=== PATIENT | male | born 1945 | race Caucasian/White ===

== ENCOUNTER 2019-08-02 18:10 | Inpatient (IN) | payer OTHER, MEDICARE, SELFPAY ==
[2019-08-02] VITALS (9 sets, daily range): BP systolic 93–159; BP diastolic 50–89; PULSE 66–82; RESP 14–20; TEMP 35.8–36; O2SAT 90–96; BMI 19.5
--- NOTE | 2019-08-02 18:43 | XR_ITS ---
WS: [id number] PELVIS AND RIGHT HIP HISTORY: Fall/injury COMPARISON: 06/03/2012 Right hip: Acute slightly comminuted impacted fracture through the femoral neck. Otherwise no signifi cant displacement. Mild narrowing of the RIGHT and LEFT hip joints. Prior vertebroplasty at L5. Mild narrowing of the SI joints. Osteopenia. Moderate vascular calcifications. XR/XR hip RT 2-3V wo/w pel* [id number] IMPRESSION: 1. Acute slightly impacted RIGHT femoral neck fracture. 2. Mild osteopenia and atherosclerosis.
--- NOTE | 2019-08-02 18:56 | ECG_ITS ---
Measurements Intervals [place] Rate: 70 P: 103 IL: 228 QRS: -65 QRSD: 104 T: 70 QT: 426 QTc: 461 ELECTRONIC VENTRICULAR PACEMAKER Demand atrial pacing Compared to ECG 05/16/2017 06:21:17 Atrial-paced complex(es) or rhythm no longer present Left-axis deviation no longer present T-wave abnormality no longer present Possible ischemia no longer present Electronically Signed On 08-04-2019 11:51:45 CDT by Johana Brown M.D. [email or web address]
--- NOTE | 2019-08-02 18:56 | XR_ITS ---
WS: [id number] PORTABLE CHEST HISTORY: hip fracture COMPARISON: 05/15/2017 LEFT subclavian cardiac pacer. Scattered opacifications throughout both lungs are new. Patchy opacifications are most significant on the RIGHT. Moderate elevation of the LEFT hemidiaphragm is stable. No pleural effusion or pneumothor ax. Cardiac size: Normal. Mediastinum/Aorta: Mild atherosclerosis aorta. Prior vertebroplasties at multiple levels in the thoracic and lumbar spines. XR/XR chest 1V portable [id number] IMPRESSION: 1. New opacifications consistent with pneumonia or interstitial edema predomin antly throughout the RIGHT lung. 2. Stable chronic elevation LEFT hemidiaphragm. 3. Emphysema.
--- NOTE | 2019-08-02 18:58 | ED_ITS ---
HPI - Fall General: Chief Complaint: Fall Stated Complaint: fall,right hip pain Time Seen by Provider: 08/02/19 18:50 History of Present Illness: HPI Narrative: Patient is a 74-year-old gentleman who states that he fell at home. He had severe pain in his right hip. He denies any other complaints. He is nauseous on arrival to the ED but says that is from the pain. He denies syncope. He thinks he may have hit his head but denies having any sore spot. He did not lose consciousness. MD complaint: fall Onset (ago): unknown (Just prior to arrival) Fall from: standing Place fall occurred: home Loss of consciousness: None Associated symptoms-after fall: Denies abdominal pain, chest pain, headache(s), lightheadedness, neck pain or short of breath Review of Systems General: Reports: 10 or more systems reviewed and unremarkable except in HPI and below Const: Denies: fever(s), chills, fatigue or malaise Eyes: Denies: change in vision ENMT: Denies: odynophagia Card: Denies: chest pain or lightheadedness Resp: Denies: dyspnea, productive cough or non-productive cough GI: Denies: abdominal pain, nausea or vomiting : Denies: flank pain Musc: Denies: neck pain or back pain Skin/Breast: Denies: rash Neuro: Denies: headache(s) Mohit/Lymph: Denies: easy bruising or easy bleeding PFS ED PFSH: Social History Smoking and tobacco status: former smoker Physical Exam Const: COMMON NORMALS: patient oriented x3, no limitations and alert GENERAL APPEARANCE: cooperative and in distress HENMT: HEAD & SCALP: normal to inspection FACE & SINUS: normal facial exam Eye: GENERAL EYE: appearance normal, both eyes and all related structures Neck/C-Spine: COMMON NORMALS: supple, no meningeal signs and no JVD Chest: COMMONS NORMALS: normal inspection of the chest Resp: COMMON NORMALS: normal respiratory effort, No use of accessory muscles and clear to auscultation bilaterally AUSCULTATION: clear to auscultation bilaterally Cardio: COMMON NORMALS: no JVD, regular rate, regular rhythm and No murmurs present (Cardio) RATE: regular rate RHYTHM: regular rhythm GI: COMMON NORMALS: Normal to inspection, nondistended, normoactive bowel sounds present, Soft to palpation and non-tender INSPECTION: Yes normal to inspection AUSCULTATION: Yes normoactive bowel sounds PALPATION: Yes Soft to palpation Back/Pelvis: COMMON NORMALS: thoracic and lumbar spine normal to inspection Extremity: COMMON NORMALS: normal to inspection RIGHT LOWER EXTREMITY: Yes hip joint (Tender to palpation, unable to move secondary to pain. No obvious deformity.) Neuro: COMMON NORMALS: patient oriented x3, moves all extremities, no focal motor deficits and no sensory deficits noted SENSORIUM/ORIENTATION: Yes alert MENINGEAL SIGNS: Yes no meningeal signs Psych: COMMON NORMALS: mental status grossly normal, cooperative and normal affect Skin: COMMON NORMALS: no rashes or lesions noted and turgor normal GENERAL SKIN EXAM: no rashes or lesions noted and turgor normal Course ED course: Patient medicated several times for pain in his right hip. Labs are significant for hyponatremia at 126. His CO2 is also low at 20. His chest x-ray shows bilateral infiltrates or possibly fibrosis. The patient denies any medical history other than COPD. He is not sure what his medications are. Were trying to get in touch with his to get a medicine list. Dr. Mcdonald is his neighbor and thinks that he has a history of rheumatoid. He will be admitted to the hospitalist as they are covering for Dr. Oliver and Dr. Dumont this weekend. Dr. Allen will plan on surgery when he is medically cleared. Consultations: Consultation #1: Dr. Allen - will see patient and plan for juan lea when he is medically cleared. Time: 20:02 Consultation #2: Dr. Killian will admit Time: 20:22 Vital Signs: Vital signs: Vital Signs Temperature 96.8 F L 08/02/19 18:46 Pulse Rate 70 08/02/19 18:46 Respiratory Rate 18 08/02/19 20:08 Blood Pressure 93/50 08/02/19 18:46 Pulse Oximetry 95 08/02/19 18:46 MDM - Fall Lab Data: Labs: Lab Results 08/02/19 08/02/19 08/02/19 Range/Units 19:05 19:05 19:05 WBC 7.3 (4.0-10.0) 10^3/ uL RBC 3.37 L (4.1-5.3) 10^6/u L Hgb 10.9 L (11.7-16.6) g/dL Hct 32.5 L (42.0-52.0) % MCV 96.4 H (80-94) fL MCH 32.3 (28.0-34.0) pg MCHC 33.5 (30.0-36.0) g/dL RDW 13.4 (12.1-15.1) % Plt Count 247 (130-400) 10^3/c mm MPV 10.8 H (7.4-10.4) fL Neut % (Auto) 61.3 % Lymph % (Auto) 23.5 % [place] % (Auto) 12.0 % Eos % (Auto) 0.7 % Baso % (Auto) 0.7 % Neut # (Auto) 4.5 (1.8-7.7) 10^3/u L Lymph # (Auto) 1.7 (0.8-4.8) 10^3/u L [place] # (Auto) 0.9 (0.2-0.9) 10^3/u L Eos # (Auto) 0.1 (0.0-0.8) 10^3/u L Baso # (Auto) 0.1 (0.0-0.1) 10^3/u L Nucleated RBC % (a uto) 0 % Nucleated RBCs # 0.0 /100WBC PT 13.80 H (10.5-13.3) SECO NDS INR 1.03 (0.8-1.2) Sodium 126 L (136-145) mmol/L Potassium 4.1 (3.5-5.1) mmol/L Chloride 89 L (98-107) mmol/L Carbon Dioxide 20 L (22-29) mmol/L Anion Gap 21.1 H (5-19) BUN 14 (8-23) mg/dL Creatinine 0.8 (0.7-1.2) mg/dL Glucose 82 (65-115) mg/dL Calculated Osmolal ity 257 L (285-295) mOsm/k g Calcium 8.7 (8.5-10.5) mg/dL Total Bilirubin 0.5 (0.15-1.2) mg/dL AST 27 (0-40) U/L ALT 18 (0-41) U/L Alkaline Phosphata se 121 (40-130) IU/L Total Protein 6.5 L (6.6-8.7) g/dL Albumin 3.8 (3.5-5.2) g/dL Globulin 2.7 (1.3-4.6) g/dL EKG Data^: EKG 1: Pacemaker function: normal pacer function Other EKG comments: Ventricular pacemaker rate of 70 Discharge Plan Discharge Patient Disposition: Admitted As Inpatient Clinical Impression: Hyponatremia, Abnormal chest x-ray Closed fracture of right hip Qualifiers: Encounter type: initial encounter Qualified Code(s): S72.001A - Fracture of unspecified part of neck of right femur, initial encounter for closed fracture Condition: Stable Referrals: Jose Manuel Oliver MD [Primary Care Provider] - Coding Level of Care Code ED Dog Handler Or Trainer for Chg Fwd Exam Comprehensive
[2019-08-02] MEDS: morphine 4 mg/mL SDV 1 mL IVP ×2 (19:02→22:37)
[2019-08-02] MEDS: ondansetron 2 mg/ML SDV 2 mL 4 MG IVP (19:02)
[2019-08-02] MEDS: sodium chloride 0.9% 500 ML 999 ML IV (19:03)
[2019-08-02 19:31] LABS: Basophils # 0.1 10^3/uL (0.0-0.1); Basophils % 0.7 %; Eosinophils # 0.1 10^3/uL (0.0-0.8); Eosinophils % 0.7 %; Hematocrit 32.5 % (42.0-52.0); Hemoglobin 10.9 g/dL (11.7-16.6); Lymphocytes # 1.7 10^3/uL (0.8-4.8); Lymphocytes % 23.5 %; Mean Corpuscular HGB Conc 33.5 g/dL (30.0-36.0); Mean Corpuscular Hemoglobin 32.3 pg (28.0-34.0); Mean Corpuscular Volume 96.4 fL (80-94); Mean Platelet Volume 10.8 fL (7.4-10.4); Monocytes # 0.9 10^3/uL (0.2-0.9); Neutrophils # 4.5 10^3/uL (1.8-7.7); Neutrophils % 61.3 %; Nucleated Red Blood Cells % 0 %; Platelet Count 247 10^3/cmm (130-400); Red Blood Count 3.37 10^6/uL (4.1-5.3); Red Cell Distribution Width 13.4 % (12.1-15.1); White Blood Count 7.3 10^3/uL (4.0-10.0)
[2019-08-02 19:42] LABS: INR 1.03 (0.8-1.2)
[2019-08-02 19:46] LABS: Alanine Aminotransferase 18 U/L (0-41); Albumin Level 3.8 g/dL (3.5-5.2); Alkaline Phosphatase 121 IU/L (40-130); Anion Gap 21.1 (5-19); Aspartate Amino Transferase 27 U/L (0-40); Blood Urea Nitrogen 14 mg/dL (8-23); Calcium 8.7 mg/dL (8.5-10.5); Carbon Dioxide 20 mmol/L (22-29); Chloride 89 mmol/L (98-107); Globulin 2.7 g/dL (1.3-4.6); Glucose 82 mg/dL (65-115); Osmolality Calculated 257 mOsm/kg (285-295); Potassium 4.1 mmol/L (3.5-5.1); Sodium 126 mmol/L (136-145); Total Bilirubin 0.5 mg/dL (0.15-1.2); Total Protein 6.5 g/dL (6.6-8.7)
[2019-08-02] MEDS: fentaNYL 50 mcg/mL INJ 2mL IVP ×2 (20:08→21:53)
--- NOTE | 2019-08-02 20:30 | PM.HP ---
Providers/Chief Complaint Primary Care Provider: Jose Manuel Oliver MD Chief Complaint: fall,right hip pain History of Present Illness Clayton Swanson is a 74 year old male who carries diagnosis of lupus, coronary artery disease with stent placement, bradycardia status post pacemaker placement, hypothyroidism, chronic steroid user coming in after having a mechanical fall. Patient is stating that he had a mechanical fall while he was trying to take his chair out of garage and enjoy sunlight today. He is denying any chest pain, shortness of breath, loss of consciousness or seizure-like activities. He is attributing his fall to losing balance because of bad ankles. He does not feel weak from his baseline, he is active for his age, he never experienced any symptoms of weakness, lethargy because of low sodium. He is denying diarrhea, vomiting, dysuria, hypoglycemic events, hypertensive orthostasis. Diagnostics in the ER revealed normal hemodynamics, hyponatremia, hypochloremia, hypo glycemia, fracture of right femur neck, Dr. Allen has been consulted Hospital service was requested to admit the patient because of multiple comorbid conditions Review of Systems Const: Denies: fever(s) or chills Eyes: Denies: change in vision ENMT: Denies: throat pain Card: Denies: chest pain, palpitations, edema or swelling of feet/ankles Resp: Denies: dyspnea GI: Denies: abdominal pain, nausea or vomiting : Denies: flank pain Musc: Reports: joint pain and joint stiffness; Denies: neck pain, extremity swelling or joint redness Skin/Breast: Denies: rash Neuro: Denies: headache(s) Psych: Denies: anxiety Endo: Denies: polyuria Mohit/Lymph: Denies: easy bruising All/Imm: Denies: urticaria Medications/Allergies Home Medications Medication Instructions Recorded Confirmed Last Taken Type furosemide 20 mg tablet 20 mg PO QAM #90 tab 07/05/19 08/02/19 Unknown Rx cholecalciferol (vitamin D3) See Rx Instructions .ROUTE .COMPLEX 08/02/19 08/02/19 Unknown History citalopram [Celexa] See Rx Instructions .ROUTE .COMPLEX 08/02/19 08/02/19 Unknown History clonazepam See Rx Instructions .ROUTE .COMPLEX 08/02/19 08/02/19 Unknown History gabapentin See Rx Instructions .ROUTE .COMPLEX 08/02/19 08/02/19 Unknown History prednisone See Rx Instructions .ROUTE .COMPLEX 08/02/19 08/02/19 Unknown History prednisone See Rx Instructions .ROUTE .COMPLEX 08/02/19 08/02/19 Unknown History Allergies Allergy/AdvReac Type Severity Reaction Status Date / Time No Known Allergies Allergy Unverified 07/05/19 13:26 PFSH Acute PFSH: Medical History Bradycardia COPD (chronic obstructive pulmonary disease) Coronary artery disease Diastolic heart failure Gastric ulcer Exploratory laparotomy after perforation Hypothyroidism Lupus (systemic lupus erythematosus) Rheumatoid arthritis/lupus Orthostasis Polypharmacy Syncope Secondary to polypharmacy in the past Surgical History H/O hernia repair H/O knee surgery History of appendectomy History of cardiac cath No significant stenotic lesions were identified, 05/2017 Previous back surgery S/P coronary artery stent placement 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 Family History Brother Cancer Prostate cancer Father CAD (coronary artery disease) Mother CAD (coronary artery disease) Social History Smoking and tobacco status: former smoker Alcohol intake: current Alcohol type: beer Alcohol use comment: Occasional 2 beers a day Substance/Drug Use: never Household members: family Housing: House Vitals/I&O/Wt Last Vital Signs Temp 96.8 F L 08/02/19 18:46 Pulse 70 08/02/19 18:46 Resp 18 08/02/19 20:08 BP 93/50 08/02/19 18:46 Pulse Ox 95 08/02/19 18:46 08/02/19 08/02/19 08/02/19 06:59 14:59 22:59 Intake Total 500 / 500 Balance 500 / 500 Weight last 48 hrs Weight 63.503 kg Physical Exam Narrative: EXAM NARRATIVE: Head to toe examination Patient is lying comfortably in his bed without any active discomfort EOMI, PERRLA No neurological changes, alert oriented x3, GCS 15, S1, S2, no active signs of heart failure Abdomen soft, nontender, bowel sounds sluggish Lungs are clear to auscultation No skin ischemia gangrene ulcer of lower extremities Hyperemic facial skin with telangiectasia Appropriate mood and affect He has hematoma of toes due to trauma Laceration of right knee 1x2 cm Pertinent negatives No sign ischemia gangrene or ulcer of lower extremity No active pain No neurological signs because of low sodium Data : 08/02/19 19:05 08/02/19 19:05 A&P Assessment and plan (1) Closed fracture of right hip: Status: Acute Qualifiers: Encounter type: initial encounter Qualified Code(s): S72.001A - Fracture of unspecified part of neck of right femur, initial encounter for closed fracture (2) Chronic hyponatremia: Status: Acute (3) Abnormal chest x-ray: Status: Acute (4) Osteoporosis: Status: Acute (5) Current chronic use of systemic steroids: Status: Acute Additional A&P Information Closed right hip fracture Right hip fracture after sustaining a mechanical fall with underlying osteoporosis, chronic steroid use High risk for avascular necrosis Dr. Allen has been consulted N.p.o. Analgesic control with morphine rcri class III risk with 10% risk of 30-day risk of [place] and cardiac arrest, patient has moderate functional status considering his age, his surgery will be considered urgent, no cardiac evaluation needed before surgery, however I would add a stress dose steroids because of his chronic steroid usage to avoid adrenal crisis He would need good wound care after surgery Address DVT prophylaxis after surgery Chronic hyponatremia His baseline sodium seems to be fluctuating between 128 - 134 No neurological signs He has been given 1 L normal saline in the ER I would use very low maintenance rate to avoid rapid correction Chronic steroid dependency Patient has been using prednisone 10 mg for lupus I would use stress dose steroids for at least 48 hours, will give 1 bolus of 100 mg of hydrocortisone No signs of hypoglycemia however blood sugar is 82, I would avoid adding dextrose because of hyponatremia He has acidosis, hyponatremia, hyperglycemia no hemodynamic instability, closely monitor for adrenal crisis perioperatively, Systemic lupus arthritis Abnormal chest x-ray is most likely secondary to rheumatological disorder He is not septic Low risk for COVID DVT prophylaxis: SCD CODE STATUS: Discussed goals of care with the patient and he wants a trial of CPR and intubation but does not want to stay on ventilator for prolonged period of time N.p.o. after midnight Attestations Medical Necessity Statement*: Anticipating stay in the hospital to cross more than 2 midnights currently needs evaluation by surgery for hip fracture high risk for complication because of chronic steroid use Time Spent in Patient Care: 50 Coding Level of Care Code Acute Inorganic Chemistry Professor for Chg Fwd Diagnoses Closed fracture of right hip S72.001A Encounter type: initial encounter Chronic hyponatremia E87.1 Abnormal chest x-ray R93.89 Osteoporosis M81.0 Current chronic use of systemic steroids Z79.52
[2019-08-02] MEDS: sodium chlor 0.45% +KCl 20 mEq 20 MEQ/1,000 ML BAG 125 MEQ IV (20:47)
[2019-08-02] MEDS: hydrocortisone 100 mg/2 mL SDV IVP (22:38)
[2019-08-02 22:43] LABS: Glucose Point of Care 87 mg/dL (70-110)
[2019-08-02 23:17] LABS: Thyroid Stimulating Hormone 1.81 uIU/mL (0.27-4.20); Uric Acid 5.5 mg/dL (3.4-7.0)
[2019-08-03] VITALS (10 sets, daily range): BP systolic 112–136; BP diastolic 58–77; PULSE 64–78; RESP 18–20; TEMP 36.6–36.9; O2SAT 90–96
[2019-08-03 01:26] LABS: Sodium 126 mmol/L (136-145)
[2019-08-03] MEDS: sodium chloride 0.9% 1,000 ML 30 ML IV (02:56)
[2019-08-03] MEDS: morphine 4 mg/mL SDV 1 mL IVP ×2 (03:02→20:32)
[2019-08-03] MEDS: hydrocortisone 100 mg/2 mL SDV 50 MG IVP ×4 (04:15→21:33)
[2019-08-03 05:07] LABS: Glucose Point of Care 109 mg/dL (70-110)
--- NOTE | 2019-08-03 05:17 | PC.NURSE ---
Patient medication list is updated per phone call with his . Complete list of medications is in patients chart. This nurse noticed the patient is currently taking Brilinta which is an antiplatelet. This nurse spoke to patients a few times in the night. is very concerned about her going into surgery as she says he has a very hard time coming out of anesthesia. would like to speak with the doctor prior to surgery.
[2019-08-03 05:30] LABS: Basophils % 0.3 %; Eosinophils % 0.2 %; Hematocrit 33.5 % (42.0-52.0); Hemoglobin 11.1 g/dL (11.7-16.6); Lymphocytes # 0.7 10^3/uL (0.8-4.8); Lymphocytes % 10.9 %; Mean Corpuscular HGB Conc 33.1 g/dL (30.0-36.0); Mean Corpuscular Hemoglobin 32.9 pg (28.0-34.0); Mean Corpuscular Volume 99.4 fL (80-94); Mean Platelet Volume 10.8 fL (7.4-10.4); Monocytes # 0.3 10^3/uL (0.2-0.9); Monocytes % 4.9 %; Neutrophils % 82.4 %; Nucleated Red Blood Cells % 0 %; Platelet Count 215 10^3/cmm (130-400); Red Blood Count 3.37 10^6/uL (4.1-5.3); Red Cell Distribution Width 13.5 % (12.1-15.1); White Blood Count 6.1 10^3/uL (4.0-10.0)
[2019-08-03 05:55] LABS: Anion Gap 20.2 (5-19); Blood Urea Nitrogen 13 mg/dL (8-23); Calcium 8.8 mg/dL (8.5-10.5); Carbon Dioxide 22 mmol/L (22-29); Chloride 92 mmol/L (98-107); Glucose 102 mg/dL (65-115); Osmolality Calculated 264 mOsm/kg (285-295); Potassium 5.2 mmol/L (3.5-5.1); Sodium 129 mmol/L (136-145)
[2019-08-03] MEDS: sennosides-docusate Tablet 1 TAB PO ×2 (08:12→17:21)
--- NOTE | 2019-08-03 08:31 | PM.PN ---
Subjective Subjective: Interval history: The patient is feeling well today overall. He does have significant pain in the right hip with any movement. Otherwise his pain is relatively well controlled without movement. The patient currently denies any chest pains. He has a chronic cough that he attributes to COPD. He gets up phlegm every once a while. He denies any fevers. He says this is relatively stable for him. The patient denies any vomiting, diarrhea, constipation. He did have some nausea with the pain medications. Vitals/I&O/Wt Last Vital Signs Temp 98.4 F 08/03/19 07:50 Pulse 76 08/03/19 07:50 Resp 18 08/03/19 07:50 BP 118/75 08/03/19 07:50 Pulse Ox 90 08/03/19 07:50 08/02/19 08/03/19 08/03/19 22:59 06:59 14:59 Intake Total 500 / 500 Output Total 220 / 220 Balance 500 / 500 -220 / 280 Weight last 48 hrs Weight 140 lb Physical Exam Narrative: EXAM NARRATIVE: General: Alert and oriented x3 Eyes: PERRLA, EOMI Mouth: Mucous membranes moist without lesions. Cardiac: Regular rate and rhythm without murmurs Lungs: Significantly decreased air entry bilaterally. No appreciable wheezes, crackles or rhonchi. Abdomen: Soft, nontender, no hepatosplenomegaly noted Extremities: No edema. Pain noted over the right hip to palpation. Data : 08/03/19 04:29 08/03/19 04:29 A&P Assessment and plan (1) Current chronic use of systemic steroids: Status: Acute (2) Osteoporosis: Status: Acute (3) Chronic hyponatremia: Status: Acute (4) Closed fracture of right hip: Status: Acute Qualifiers: Encounter type: initial encounter Qualified Code(s): S72.001A - Fracture of unspecified part of neck of right femur, initial encounter for closed fracture (5) Abnormal chest x-ray: Status: Acute Additional A&P Information 1. Right femoral neck fracture -the patient has a fracture in the right femoral neck. Dr. Allen has been consulted and will plan to do surgery during this inpatient stay. I appreciate her consultation. I will place an order for Percocet to be used as needed for oral pain relief. Morphine okay as needed for IV pain relief. 2. COPD -the patient has COPD and is relatively stable at this time. Continue with home medications. Respiratory therapy to assess and treat. 3. Possible pneumonia on chest x-ray -the patient has some findings of either interstitial fluid in the right lung versus pneumonia. Since he will be going for surgery, we will go ahead and start Rocephin just in case of pneumonia. The patient has a chronic cough and he does not feel that it is any significantly worse. He has no fevers or white blood cell count to be consistent with pneumonia. At this time I do not feel that if this is infection, that it is significant. I would be okay with him proceeding with surgery. 4. Hyponatremia -the patient sodium levels are 129 this morning. He has a chronic hyponatremia. His citalopram will be held as this could be making it worse. Continue with IV fluids at 30 mL/h. 5. Coronary artery disease -the patient has coronary artery disease and had an angiogram done in 2018 that showed blockages of 50% or less. The patient does not have any active chest pains and his EKG does not show any concerning findings for acute disease. I am in agreement with Dr. Joyce that the patient should not need further cardiology clearance at this time. 6. Hypothyroidism -continue with home levothyroxine. 7. Lupus -the patient is currently off of his medication for lupus as it was causing eye issues. 8. Prophylaxis -the patient is getting hydrocortisone to help decrease risk for adrenal crisis. We will continue this after surgery as well. The patient is typically on Brilinta and this will be held prior to surgery. SCDs for now and plan to start Lovenox once okayed by surgery after surgical intervention. Continue with oral PPI. Attestations Medical Necessity Statement*: The patient will be here for greater than 2 midnights due to treatment of a right hip fracture. Coding Level of Care Code Acute Journeyman Power Plant Operator for Chg Fwd Diagnoses Current chronic use of systemic steroids Z79.52 Osteoporosis M81.0 Chronic hyponatremia E87.1 Closed fracture of right hip S72.001A Encounter type: initial encounter Abnormal chest x-ray R93.89
[2019-08-03] MEDS: CLONazepam 0.5 mg Tablet PO ×2 (08:52→17:21)
[2019-08-03] MEDS: pantoprazole DR 40 mg Tablet PO (08:52)
[2019-08-03 08:53] LABS: Sodium 127 mmol/L (136-145)
[2019-08-03] MEDS: cefTRIAXone 2,000 MG in sodium chloride 0.9% (plus) 50 ML 100 MG IV ×2 (08:53→20:31)
[2019-08-03] MEDS: atorvastatin 40 mg Tablet 20 MG PO (08:54)
[2019-08-03] MEDS: levothyroxine 100 mcg Tablet PO (08:55)
[2019-08-03] MEDS: heparin 5,000 unit/mL INJ 1 mL 5000 UNIT INJECTION ×2 (09:14→17:21)
[2019-08-03] MEDS: sodium chloride 3% 500 ML 30 ML IV (09:16)
[2019-08-03 11:17] LABS: Glucose Point of Care 114 mg/dL (70-110)
--- NOTE | 2019-08-03 11:36 | PC.CHAP ---
Pastoral Care Encounter/Spiritual Assessment Type of Contact [] Declined supervisor solder making visit [] Patient/Family/Request visit [] Outpatient visit [] Follow-up visit [] Physician referral [] Code/Alert [x] Routine visit [] Staff referral [] Actively dying [] Patient sleeping [] Family support [] [] Out of room [] Palliative care [] [x] Receiving care in room [] Pre-surgical visit [] Trauma [] Long length of stay [] ICU visit [] Other: Relational/Emotional Strength [x] Patient feels connected with others/family/visitors/staff [] Distress [] Loneliness/isolation [] Abandonment Spirituality of Patient [] Person of Chika [] Attends Confucianist of their Chika [] Believes in Prayer [] Reads Bible or Spiritism materials [] There are Spiritual issues to be addressed Protohistorian Interventions [] Prayer [] Active listening [] Non-anxious presence [] Spiritual/emotional support [] Crisis/trauma care [] Spiritual counseling [] Bereavement support [] Provided bereavement packet [] Provided Bible/devotional materials [] Provided toy/stuffed animal, coloring book to patient or family member [] Provided Communion [] Anointing/Hines [] Salvation [] Completed spiritual assessment [] Other: no prayer Impact on Illness or Injury [] Angry [] Fearful [] Anxious [] Often cries [] Exhaustion [] Unable to work [] Unable to attend church [] Unable to walk/stand [] Unable to read [] Unable to drive [] Unable to eat/drink [] Unable to sleep [] Unable to be with family [] Patient intubated [] Other: Summary FELL right Hip, hasn't seem docotor, feels good, doesn' know what needs to done Time spent with patient 10 mins
[2019-08-03 16:11] LABS: Anion Gap 18.6 (5-19); Blood Urea Nitrogen 14 mg/dL (8-23); Calcium 8.6 mg/dL (8.5-10.5); Carbon Dioxide 22 mmol/L (22-29); Chloride 93 mmol/L (98-107); Glucose 104 mg/dL (65-115); Osmolality Calculated 265 mOsm/kg (285-295); Potassium 4.6 mmol/L (3.5-5.1); Sodium 129 mmol/L (136-145)
--- NOTE | 2019-08-03 16:54 | PM.CONSULT ---
Providers/Reason For Consult Consulting Physican/Specialty*: Dr. Laura Allen-Orthopedics Reason for Consult*: Right subcapital hip fracture, displaced Requesting Physcian: Dr. Danielle Arzola Attending Physician: Clayton Dumont MD Primary Care Provider: Jose Manuel Oliver MD History of Present Illness History of Present Illness Clayton Swanson is a 74 year old male who fell at his home. The patient states he got out of his truck and he went into the garage to obtain a lawn chair to be able to sit out in the brace. He was pulling the lawn chair and caught his foot and it causing him to fall. He was unable to ambulate and had significant right hip pain. He was brought to the emergency department where the patient was found to have a subcapital right hip fracture. The patient notes that he did not feel any shortness of breath, dizziness, or other reason for his fall other than getting his foot caught in the chair. During his ER evaluation, in addition to the subcapital hip fracture, he was found to be hyponatremic, hypochloremic, hypoglycemic, and was found to have multiple medical abnormalities. He does note that he frequently falls secondary to losing balance because he has weak ankles. Review of Systems Const: Denies: fever(s) or chills Eyes: Denies: change in vision Card: Denies: chest pain or dyspnea on exertion Resp: Denies: dyspnea or productive cough GI: Denies: abdominal pain Musc: Reports: joint pain and joint stiffness Skin/Breast: Denies: erythema or changes in skin color Neuro: Denies: numbness in extremities Psych: Denies: anxiety or depression Mohit/Lymph: Denies: easy bruising or easy bleeding Meds/Allergies Home Medications and Allergies Home Medications Medication Instructions Recorded Confirmed Last Taken Type furosemide 20 mg tablet 20 mg PO QAM #90 tab 07/05/19 08/02/19 Unknown Rx Klor-Con 10 10 meq PO DAILY 08/02/19 08/02/19 Unknown History atorvastatin 10 mg PO DAILY 08/02/19 08/02/19 Unknown History cholecalciferol (vitamin D3) See Rx Instructions .ROUTE .COMPLEX 08/02/19 08/02/19 Unknown History citalopram [Celexa] 40 mg PO DAILY 08/02/19 08/02/19 Unknown History clonazepam [Klonopin] 0.5 mg PO BID 08/02/19 08/02/19 Unknown History fiber 400 mg PO DAILY 08/02/19 08/02/19 Unknown History gabapentin 100 mg PO BID 08/02/19 08/02/19 Unknown History leflunomide 5 mg PO DAILY 08/02/19 08/02/19 Unknown History levothyroxine 100 mcg PO DAILY 08/02/19 08/02/19 Unknown History magnesium oxide 400 mg PO DAILY 08/02/19 08/02/19 Unknown History pantoprazole 40 mg PO DAILY 08/02/19 08/02/19 Unknown History prednisone See Rx Instructions .ROUTE .COMPLEX 08/02/19 08/02/19 Unknown History prednisone See Rx Instructions .ROUTE .COMPLEX 08/02/19 08/02/19 Unknown History ticagrelor [Brilinta] 135 mg PO DAILY 08/02/19 08/02/19 Unknown History tiotropium-olodaterol [Stiolto 1 puff INHALATION BID 08/02/19 08/02/19 Unknown History Respimat] Allergies Allergy/AdvReac Type Severity Reaction Status Date / Time No Known Allergies Allergy Unverified 07/05/19 13:26 Current Medications Current Medications Generic Name Dose Route Start Last Admin Trade Name Freq PRN Reason Stop Dose Admin Atorvastatin Calcium 20 mg 08/03/19 09:00 08/03/19 08:54 Lipitor PO 20 mg DAILY HARRIET Administration Clonazepam 0.5 mg 08/03/19 09:00 08/03/19 08:52 Klonopin PO 0.5 mg BID HARRIET Administration Heparin Sodium (Beef Lung) 5,000 unit 08/03/19 09:15 08/03/19 09:14 Heparin INJECTION 08/04/19 00:00 5,000 unit Q8H HARRIET Administration Hydrocortisone Sodium Succinate 50 mg 08/03/19 04:30 08/03/19 15:18 Solu-Cortef Inj IVP 08/04/19 04:29 50 mg Q6H HARRIET Administration Ceftriaxone Sodium 2,000 mg/ 50 mls @ 100 mls/hr 08/03/19 09:00 08/03/19 09:10 Sodium Chloride IV Not Given Q12H HARRIET Protocol Sodium Chloride 500 mls @ 30 mls/hr 08/03/19 09:15 05/26/20 09:16 Sodium Chloride 3% IV 30 mls/hr .[id number] HARRIET Administration Levothyroxine Sodium 100 mcg 08/03/19 09:00 08/03/19 08:55 Synthroid PO 100 mcg DAILY HARRIET Administration Morphine Sulfate 4 mg 08/02/19 22:30 08/03/19 03:02 Morphine IVP 4 mg Q4H PRN Administration SEVERE PAIN Pantoprazole Sodium 40 mg 08/03/19 09:00 08/03/19 08:52 Protonix PO 40 mg DAILY HARRIET Administration Senna/Docusate Sodium 1 tab 08/03/19 09:00 08/03/19 08:12 Senna-S PO 1 tab BID HARRIET Administration PFSH Acute PFSH: Medical History Bradycardia COPD (chronic obstructive pulmonary disease) Coronary artery disease Diastolic heart failure Gastric ulcer Exploratory laparotomy after perforation Hypothyroidism Lupus (systemic lupus erythematosus) Rheumatoid arthritis/lupus Orthostasis Polypharmacy Syncope Secondary to polypharmacy in the past Surgical History H/O hernia repair H/O knee surgery History of appendectomy History of cardiac cath No significant stenotic lesions were identified, 05/2017 Previous back surgery S/P coronary artery stent placement 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 Family History Brother Cancer Prostate cancer Father CAD (coronary artery disease) Mother CAD (coronary artery disease) Social History Smoking and tobacco status: former smoker Alcohol intake: current Alcohol type: beer Alcohol use comment: Occasional 2 beers a day Substance/Drug Use: never Household members: family Housing: House Vitals/I&O/Wt Last Vital Signs Temp 98.4 F 08/03/19 15:12 Pulse 71 08/03/19 15:12 Resp 18 08/03/19 15:12 BP 129/73 08/03/19 15:12 Pulse Ox 95 08/03/19 15:12 08/03/19 08/03/19 08/03/19 06:59 14:59 22:59 Output Total 220 / 220 800 / 800 500 / 1300 Balance -220 / 280 -800 / -800 -500 / -1300 Weight last 48 hrs Weight 140 lb Physical Exam Const: COMMON NORMALS: no acute distress, average body habitus, patient oriented x3 and alert GENERAL APPEARANCE: cooperative and comfortable ORIENTATION/CONSCIOUSNESS: Yes awake HENMT: COMMON NORMALS: normocephalic and atraumatic HEAD & SCALP: normocephalic and atraumatic Eye: GENERAL EYE: appearance normal, both eyes and all related structures Chest: COMMONS NORMALS: normal inspection of the chest Resp: COMMON NORMALS: normal respiratory effort EFFORT & INSPECTION: Yes able to speak in complete sentences and Yes symmetric chest movement Extremity: RIGHT LOWER EXTREMITY: Yes hip joint (There is no significant ecchymosis or swelling about the hip.) Right hip: Yes inspection (The thigh is soft.), Yes palpation (There is tenderness to palpation.), Yes ROM (Not assessed secondary to fracture.) and Yes neurovascular exam (Intact distal to the fracture.) Neuro: COMMON NORMALS: patient oriented x3 SENSORIUM/ORIENTATION: Yes alert Psych: COMMON NORMALS: mental status grossly normal APPEARANCE: Yes grossly normal ATTITUDE: Yes calm and Yes engaged ATTENTION/CONCENTRATION: Yes attention grossly intact Skin: COMMON NORMALS: no rashes or lesions noted GENERAL SKIN EXAM: no rashes or lesions noted Data Imaging^: Xray Ortho: I personally reviewed and interpreted this imaging study as follows: My impression: Patient has a slightly displaced right subcapital hip fracture. There is inferior translation of the femoral head relative to the femur. This is concerning for an unstable fracture pattern. A&P Assessment and plan (1) Subcapital fracture of right hip: Patient was admitted by the hospitalist service with multiple medical problems. He has been optimized for surgery. His sodium has improved somewhat while here, but he is still low. Recommendation was made that we wait until tomorrow to see if sodium can be better normalized. Also, the patient had some findings on chest x-ray and this was evaluated by Dr. Dumont. With regard to his hip, he will require a bipolar hip arthroplasty. He has been treated with IV antibiotic to address any potential issues secondary to his lungs. I discussed surgical intervention with patient. He is in agreement. Plans were made for his surgery to occur tomorrow morning provided there are no medical issues which arise overnight. Consents have been signed. Status: Acute Consult Attestations Medical Necessity Statement: Patient requires inpatient hospitalization to address his displaced right subcapital hip fracture. Coding Level of Care Code Acute Planting Material Remover for Gina klaus Diagnoses Subcapital fracture of right hip S72.011A
[2019-08-03 17:32] LABS: Glucose Point of Care 109 mg/dL (70-110)
[2019-08-03 20:45] LABS: Glucose Point of Care 169 mg/dL (70-110)
[2019-08-03] MEDS: sodium chloride 3% 500 ML 41.7 ML IV (21:33)
[2019-08-03] MEDS: oxyCODONE-APAP 5-325 mg Tablet 1 TAB PO (21:38)
[2019-08-04] VITALS (14 sets, daily range): BP systolic 95–140; BP diastolic 39–90; PULSE 63–87; RESP 16–22; TEMP 36.3–36.8; O2SAT 95–100
[2019-08-04 04:01] LABS: Glucose Point of Care 130 mg/dL (70-110)
[2019-08-04 05:49] LABS: Basophils % 0.1 %; Hematocrit 29.1 % (42.0-52.0); Hemoglobin 9.7 g/dL (11.7-16.6); Lymphocytes # 0.5 10^3/uL (0.8-4.8); Lymphocytes % 6.4 %; Mean Corpuscular HGB Conc 33.3 g/dL (30.0-36.0); Mean Corpuscular Hemoglobin 33.2 pg (28.0-34.0); Mean Corpuscular Volume 99.7 fL (80-94); Mean Platelet Volume 10.8 fL (7.4-10.4); Monocytes # 0.8 10^3/uL (0.2-0.9); Monocytes % 9.9 %; Neutrophils # 6.9 10^3/uL (1.8-7.7); Neutrophils % 83.1 %; Nucleated Red Blood Cells % 0 %; Platelet Count 184 10^3/cmm (130-400); Red Blood Count 2.92 10^6/uL (4.1-5.3); Red Cell Distribution Width 13.8 % (12.1-15.1); White Blood Count 8.3 10^3/uL (4.0-10.0)
[2019-08-04 06:08] LABS: Alanine Aminotransferase 14 U/L (0-41); Albumin Level 3.2 g/dL (3.5-5.2); Alkaline Phosphatase 93 IU/L (40-130); Anion Gap 15.3 (5-19); Aspartate Amino Transferase 23 U/L (0-40); Blood Urea Nitrogen 16 mg/dL (8-23); Calcium 8.2 mg/dL (8.5-10.5); Carbon Dioxide 20 mmol/L (22-29); Chloride 101 mmol/L (98-107); Globulin 2.4 g/dL (1.3-4.6); Glucose 123 mg/dL (65-115); Magnesium 2.1 mg/dL (1.7-2.3); Osmolality Calculated 272 mOsm/kg (285-295); Phosphorus 2.7 mg/dL (2.5-4.5); Potassium 4.3 mmol/L (3.5-5.1); Sodium 132 mmol/L (136-145); Total Bilirubin 0.3 mg/dL (0.15-1.2); Total Protein 5.6 g/dL (6.6-8.7)
[2019-08-04] MEDS: sodium chloride 0.9% 1,000 ML 30 ML IV ×2 (07:36→16:14)
[2019-08-04] MEDS: vancomycin 1,000 MG in sodium chloride 0.9% 250 ML 250 MG IV ×2 (07:55→19:52)
--- NOTE | 2019-08-04 08:02 | ANES.PREANE2 ---
Pre-Anesthetic Assessment Pre-Anesthetic Assessment: Height/Weight: Height 1.8 m Weight 63.503 kg Temp Pulse Resp BP Pulse Ox 98.0 F 75 18 139/77 97 08/04/19 07:20 08/04/19 07:20 08/04/19 07:20 08/04/19 07:20 08/04/19 07:20 Preop Diagnosis: Right subcapital hip fracture Proposed Procedure: Operation Date: 08/04/19 08:15 Proposed Procedures p Hemiarthroplasty Hip(Right) - Laura Allen MD Last intake: Intake Last Liquid Date 08/03/19 Last Liquid Time 22:00 Last Solid Date 08/01/19 Last Solid Time 20:00 Social: Social History: Tobacco (chews) and No alcohol Exam: Pre-Anes Outpt Exam: alert, oriented x 3, clear to auscultation bilaterally and regular rate & rhythm Airway: Submandibular: WNL Cervical ROM: WNL MP: 2 Dentition: Other (teeth ok) History/ROS: No significant history except as noted Pulmonary: Pulmonary: COPD and BERRY CV/HEM: CV/HEM: Arrythmia (PPM), CAD (stents 2015) and HTN : : None reported Hepatic: Hepatic: None reported GI: GI: GERD (contolled) Metabolic: Metabolic: Hyperlipidemia and Thyroid Musc/skel: Musc/skel: OA/DJD Comments: Lupus Neuropsych: Neuropsych: None reported Anesthetic Plan: ASA status: 3 Anesthesia: Anesthesia Evaluation and General Risk of > 500 ml blood loss (7ml/kg in children): No Meds/Allergies Current Medications: Current Medications Generic Name Dose Route Start Last Admin Trade Name Mel PRN Reason Stop Dose Admin Atorvastatin Calci um 20 mg 08/03/19 09:00 08/03/19 08:54 Lipitor PO 20 mg DAILY HARRIET Administration Clonazepam 0.5 mg 08/03/19 09:00 08/03/19 17:21 Klonopin PO 0.5 mg BID HARRIET Administration Ceftriaxone Sodium 2,000 mg/ 50 mls @ 100 mls/ hr 08/03/19 09:00 08/03/19 21:42 Sodium Chloride IV Infused Q12H HARRIET Infusion Protocol Sodium Chloride 500 mls @ 41.667 mls/hr 08/03/19 21:30 08/04/19 05:30 Sodium Chloride 3% IV 42 mls/hr .Q12H HARRIET Infusion Vancomycin HCl 1,0 00 mg/ 250 mls @ 250 mls /hr 08/04/19 07:05 08/04/19 07:55 Sodium Chloride IV 08/04/19 08:04 250 mls/hr ONCE ONE Administration Protocol Sodium Chloride 1,000 mls @ 30 ml s/hr 08/04/19 07:30 08/04/19 07:36 Sodium Chloride 0.9% IV 30 mls/hr .Q24H HARRIET Administration Levothyroxine Sodi um 100 mcg 08/03/19 09:00 08/03/19 08:55 Synthroid PO 100 mcg DAILY HARRIET Administration Morphine Sulfate 4 mg 08/02/19 22:30 08/03/19 20:32 Morphine IVP 4 mg Q4H PRN Administration SEVERE PAIN Oxycodone/Acetamin ophen 1 tab 08/03/19 08:32 08/03/19 21:38 Percocet 5-325 M g PO 1 tab Q4H PRN Administration MODERATE PAIN Pantoprazole Sodiu m 40 mg 08/03/19 09:00 08/03/19 08:52 Protonix PO 40 mg DAILY HARRIET Administration Senna/Docusate Sod ium 1 tab 08/03/19 09:00 08/03/19 17:21 Senna-S PO 1 tab BID HARRIET Administration PFSH Anesthesia PFSH: Medical History Bradycardia COPD (chronic obstructive pulmonary disease) Coronary artery disease Diastolic heart failure Gastric ulcer Exploratory laparotomy after perforation Hypothyroidism Lupus (systemic lupus erythematosus) Rheumatoid arthritis/lupus Orthostasis Polypharmacy Syncope Secondary to polypharmacy in the past Surgical History H/O hernia repair H/O knee surgery History of appendectomy History of cardiac cath No significant stenotic lesions were identified, 05/2017 Previous back surgery S/P coronary artery stent placement 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 Family History Brother Cancer Prostate cancer Father CAD (coronary artery disease) Mother CAD (coronary artery disease) Social History Smoking and tobacco status: former smoker Alcohol intake: current Alcohol type: beer Alcohol use comment: Occasional 2 beers a day Substance/Drug Use: never Household members: family Housing: House Data Anesthesia CBC & Chem 7: 08/04/19 05:05 08/04/19 05:05 Other Labs: Laboratory Results - last 48 hr 08/02/19 08/02/19 08/02/19 19:05 19:05 19:05 WBC 7.3 RBC 3.37 L Hgb 10.9 L Hct 32.5 L MCV 96.4 H MCH 32.3 MCHC 33.5 RDW 13.4 Plt Count 247 MPV 10.8 H Neut % (Auto) 61.3 Lymph % (Auto) 23.5 Doddridge % (Auto) 12.0 Eos % (Auto) 0.7 Baso % (Auto) 0.7 Neut # (Auto) 4.5 Lymph # (Auto) 1.7 Dod[place]idge # (Auto) 0.9 Eos # (Auto) 0.1 Baso # (Auto) 0.1 Nucleated RBC % (auto) 0 Nucleated RBCs # 0.0 PT 13.80 H INR 1.03 Sodium 126 L Potassium 4.1 Chloride 89 L Carbon Dioxide 20 L Anion Gap 21.1 H BUN 14 Creatinine 0.8 Glucose 82 POC Glucose Calculated Osmolality 257 L Uric Acid Calcium 8.7 Phosphorus Magnesium Total Bilirubin 0.5 AST 27 ALT 18 Alkaline Phosphatase 121 Total Protein 6.5 L Albumin 3.8 Globulin 2.7 TSH Random Cortisol Blood Type Rho(D) Type Antibody Screen 08/02/19 08/02/19 08/02/19 19:05 19:05 22:38 WBC RBC Hgb Hct MCV MCH MCHC RDW Plt Count MPV Neut % (Auto) Lymph % (Auto) Doddridge % (Auto) Eos % (Auto) Baso % (Auto) Neut # (Auto) Lymph # (Auto) Doddridge # (Auto) Eos # (Auto) Baso # (Auto) Nucleated RBC % (auto) Nucleated RBCs # PT INR Sodium Potassium Chloride Carbon Dioxide Anion Gap BUN Creatinine Glucose POC Glucose 87 Calculated Osmolality Uric Acid 5.5 Calcium Phosphorus Magnesium Total Bilirubin AST ALT Alkaline Phosphatase Total Protein Albumin Globulin TSH 1.81 Random Cortisol Blood Type A Positive Rho(D) Type Positive Antibody Screen Negative 08/03/19 08/03/19 08/03/19 00:53 04:29 04:29 WBC 6.1 RBC 3.37 L Hgb 11.1 L Hct 33.5 L MCV 99.4 H MCH 32.9 MCHC 33.1 RDW 13.5 Plt Count 215 MPV 10.8 H Neut % (Auto) 82.4 Lymph % (Auto) 10.9 Doddridge % (Auto) 4.9 Eos % (Auto) 0.2 Baso % (Auto) 0.3 Neut # (Auto) 5.0 Lymph # (Auto) 0.7 L Dod[place]idge # (Auto) 0.3 Eos # (Auto) 0.0 Baso # (Auto) 0.0 Nucleated RBC % (auto) 0 Nucleated RBCs # 0.0 PT INR Sodium 126 L 129 L Potassium 5.2 H Chloride 92 L Carbon Dioxide 22 Anion Gap 20.2 H BUN 13 Creatinine 0.7 Glucose 102 POC Glucose Calculated Osmolality 264 L Uric Acid Calcium 8.8 Phosphorus Magnesium Total Bilirubin AST ALT Alkaline Phosphatase Total Protein Albumin Globulin TSH Random Cortisol Blood Type Rho(D) Type Antibody Screen 08/03/19 08/03/19 08/03/19 05:01 08:32 08:32 WBC RBC Hgb Hct MCV MCH MCHC RDW Plt Count MPV Neut % (Auto) Lymph % (Auto) Dod[place]idge % (Auto) Eos % (Auto) Baso % (Auto) Neut # (Auto) Lymph # (Auto) Dod[place]idge # (Auto) Eos # (Auto) Baso # (Auto) Nucleated RBC % (auto) Nucleated RBCs # PT INR Sodium 127 L Potassium Chloride Carbon Dioxide Anion Gap BUN Creatinine Glucose POC Glucose 109 Calculated Osmolality Uric Acid Calcium Phosphorus Magnesium Total Bilirubin AST ALT Alkaline Phosphatase Total Protein Albumin Globulin TSH Random Cortisol 78.60 H Blood Type Rho(D) Type Antibody Screen 08/03/19 08/03/19 08/03/19 10:32 15:25 17:28 WBC RBC Hgb Hct MCV MCH MCHC RDW Plt Count MPV Neut % (Auto) Lymph % (Auto) Doddridge % (Auto) Eos % (Auto) Baso % (Auto) Neut # (Auto) Lymph # (Auto) Dod[place]idge # (Auto) Eos # (Auto) Baso # (Auto) Nucleated RBC % (auto) Nucleated RBCs # PT INR Sodium 129 L Potassium 4.6 Chloride 93 L Carbon Dioxide 22 Anion Gap 18.6 BUN 14 Creatinine 0.7 Glucose 104 POC Glucose 114 109 Calculated Osmolality 265 L Uric Acid Calcium 8.6 Phosphorus Magnesium Total Bilirubin AST ALT Alkaline Phosphatase Total Protein Albumin Globulin TSH Random Cortisol Blood Type Rho(D) Type Antibody Screen 08/03/19 08/04/19 08/04/19 20:37 03:40 05:05 WBC 8.3 RBC 2.92 L Hgb 9.7 L Hct 29.1 L MCV 99.7 H MCH 33.2 MCHC 33.3 RDW 13.8 Plt Count 184 MPV 10.8 H Neut % (Auto) 83.1 Lymph % (Auto) 6.4 Doddridge % (Auto) 9.9 Eos % (Auto) 0.0 Baso % (Auto) 0.1 Neut # (Auto) 6.9 Lymph # (Auto) 0.5 L [place] # (Auto) 0.8 Eos # (Auto) 0.0 Baso # (Auto) 0.0 Nucleated RBC % (auto) 0 Nucleated RBCs # 0.0 PT INR Sodium Potassium Chloride Carbon Dioxide Anion Gap BUN Creatinine Glucose POC Glucose 169 130 Calculated Osmolality Uric Acid Calcium Phosphorus Magnesium Total Bilirubin AST ALT Alkaline Phosphatase Total Protein Albumin Globulin TSH Random Cortisol Blood Type Rho(D) Type Antibody Screen 08/04/19 05:05 WBC RBC Hgb Hct MCV MCH MCHC RDW Plt Count MPV Neut % (Auto) Lymph % (Auto) Dod[place]idge % (Auto) Eos % (Auto) Baso % (Auto) Neut # (Auto) Lymph # (Auto) Dod[place]idge # (Auto) Eos # (Auto) Baso # (Auto) Nucleated RBC % (auto) Nucleated RBCs # PT INR Sodium 132 L Potassium 4.3 Chloride 101 Carbon Dioxide 20 L Anion Gap 15.3 BUN 16 Creatinine 0.6 L Glucose 123 H POC Glucose Calculated Osmolality 272 L Uric Acid Calcium 8.2 L Phosphorus 2.7 Magnesium 2.1 Total Bilirubin 0.3 AST 23 ALT 14 Alkaline Phosphatase 93 Total Protein 5.6 L Albumin 3.2 L Globulin 2.4 TSH Random Cortisol Blood Type Rho(D) Type Antibody Screen Cardiac Studies: No Data to Display
[2019-08-04] MEDS: ceFAZolin 1,000 mg SDV 1000 MG IRRIGATION (10:48)
[2019-08-04] MEDS: vancomycin 1,000 MG SDV 1000 MG IRRIGATION (10:58)
--- NOTE | 2019-08-04 11:13 | XR_ITS ---
WS: [id number] PELVIS: AP VIEW SUBMITTED HISTORY: Post hip replacement. COMPARISON: 08/02/2019 Status post RIGHT hip arthroplasty. Postsurgical changes in the soft tissues. XR/XR pelvis 1-2V* [id number] IMPRESSION: Status post RIGHT hip arthroplasty in good position on this single image.
--- NOTE | 2019-08-04 11:14 | P.OP_ITS ---
Operative Report Date of procedure: August 04, 2019 Pre-op Diagnosis: Right subcapital hip fracture Post-op diagnosis: same Post-op Findings: Subcapital displaced right hip fracture Procedure Done: Right bipolar hip arthroplasty utilizing the following components: The [place] Accolade II hip system with a size 8 x 127 degree neck angle hip stem and a universal bipolar head component size 56 mm outer diameter by 28 mm inner diameter a +0 offset by 28 mm femoral head Specimens removed/disposition: Femoral head, disposed of Pathology: none sent Surgeon: Laura Allen [facility] Ankle Specialist: [facility] OR technicians Anesthesia: General (Intubated, ASA 3) Estimated blood loss (mL): 100 IV fluids (mL): 300 Urine output (mL): 100 Complications: None Findings: Following the procedure the hip was stable to external rotation. It was stable at 90 degrees of flexion with 80 degrees of internal rotation. It was also stable to toe hang and to 90 degrees of flexion with 30 degrees of adduction and 70 degrees of internal rotation Condition: stable Disposition: PACU (For postoperative rehabilitation) Brief History: This 74-year-old gentleman was in his usual state of health when he got out of his truck. He went into the garage to get a lawn chair. While pulling it into the [facility] area, the patient had his foot catch in the chair and he fell suffering the above injury. He presented to the emergency department unable to ambulate and for definitive treatment. Patient was admitted to the medical service. Discussion was undertaken with him regarding appropriate surgical treatment. He agreed. Questions were answered, consents were signed. Procedure: The patient was brought to the operating theater, and after undergoing adequate general anesthesia was transferred to the operating room table. The patient was placed in the full lateral position and held in place with the pegboard. Patient's right lower extremity was draped free and was subsequently prepped and further draped free. A surgical pause was performed prior to commencement of the surgical procedure. During the surgical pause, we confirmed the site and side of surgery as well as availability of equipment. Additionally, we confirmed preoperative surgical markings and administration of preoperative prophylactic antibiotic, vancomycin 1 g. X-rays are also reviewed during this time. Following the surgical pause, an incision was made centering over the greater trochanter continuing proximally and distally as necessary to allow access to the hip joint. Dissection continues to skin and soft tissue using scalpel. Incision was obtained using electrocautery. Tensor fascia skye was identified and incised longitudinally. Sciatic nerve was identified and protected throughout the surgical procedure. A [place]arn[place] U retractor was placed with care being taken to protect the sciatic nerve during placement. The hip was internally rotated. Piriformis muscle was then identified, tagged, and subsequently incised from the posterior aspect of the hip joint. The remaining short external rotators were also incised. These were then elevated off the capsule and the capsule was entered in a T-type fashion. Each side of the capsule was then tagged. The proximal femur was brought into an appropriate position of the femoral neck osteotomy was accomplished. This was in appropriate position for placement of the prosthetic component. Femoral head was then removed from the acetabulum utilizing a corkscrew. It was subsequently measured. The appropriate size trial was chosen. The size 56 mm trial fit nicely. A 55 mm was also trialed but it was felt to be too small. Therefore size 56 mm was the chosen size for final implantation. Femoral cell preparer was then placed and attention was directed to the proximal femur. Initially, the proximal femur was addressed with a box chisel, and this was followed by a canal finder and subsequently br oaches. The hip was broached to a size 8 Accolade II. Size 8 broach was noted to fit nicely and have good fit and fill. Therefore this was to be the chosen component. Trial reduction was accomplished with a 56 mm bipolar cup shell and a +0 mm offset femoral head. With this, the above-noted stabilities were accomplished. This was felt to be appropriate and therefore trial components were removed and the hip was irrigated. Acetabulum was evaluated for any loose bodies or other soft tissues requiring resection. We then prepared for implantation. The size 8 Accolade II 127 degree neck angle femoral stem was impacted into position. This was placed without difficulty. Onto this was placed the construct of the 56 mm outer diameter bipolar head with a 28 mm inner diameter, and the 28 mm by +0 mm offset femoral head was inserted into this outer bipolar head. This was placed onto the trunnion of the femoral component. It was impacted into position and was pulled upon to assure that there was no dissociation. Once again, the hip was irrigated and suctioned dry and was reduced. We then irrigated the hip further with 20 mL of Betadine mixed into 500 mL of normal saline. This was allowed to remain in the wound for approximately 3 minutes. It was then suctioned dry and irrigated with normal saline. This was suctioned dry again and closure was accomplished with 0 Vicryl in the capsular tissues followed by reattachment of the piriformis with 0 Vicryl. Additionally, the tensor was closed with 0 Vicryl in an interrupted fashion. Subcutaneous tissues were closed with 2-0 Monocryl. Skin was closed with 3-0 Monocryl. This was followed by Exofin and Steri-Strips. A sterile dressing was placed consisting of Telfa and Tegaderm. The patient was returned the Recovery Room in satisfactory condition. There were no complications. The patient will be discharged to the floor for postoperative rehabilitation and pain management.
--- NOTE | 2019-08-04 11:49 | SUR.PHASEI ---
PT AWAKE ALERT , DENIES PAIN, SHIVERING WARM BLANKETS X 5 , XRAYS DONE FIRST ICE TO RT HIP DISTAL PULSE STRONG AND REGULAR,DRESSING TO RT HIP D/I
[2019-08-04] MEDS: morphine 4 mg/mL SDV 1 mL IVP (12:18)
--- NOTE | 2019-08-04 12:29 | SUR.PHASEI ---
1205 PT TO FLOOR PER BED PT AWAKE ALERT TALKATIVE WITH NURSE JYOTI, DRESSING D/I FIRST ICE IN PLACE DISTAL FOOT PINK COOL PULSE STRONG AND REGULAR TO DORSALIS PEDIS, AND POSTERIOR TIBIAL. BP 140/66, HR 75, RESP 18, SATS ON 3LNC 100%
[2019-08-04 13:17] LABS: Osmolality Serum 269 mOsm/kg (278-305)
[2019-08-04 13:17] LABS: Osmolality Urine 272 mOsm/kg (50-1200)
[2019-08-04] MEDS: chlorhexidine gluconate 0.12% Btl 473 mL 30 ML MUCOUS MEM ×3 (13:18→19:55)
[2019-08-04] MEDS: CELEcoxib 200 mg Capsule PO (13:19)
--- NOTE | 2019-08-04 15:41 | P.PN_ITS ---
Subjective Subjective: Interval history: The patient is doing well after surgery. His blood pressures were initially soft, however they have started to improve. The patient still has some mild cough, however it is not worsening. The patient denies any chest pains. The patient denies any abdominal pain. He states that his right hip currently has no pain. Vitals/I&O/Wt Last Vital Signs Temp 97.8 F 08/04/19 12:59 Pulse 70 08/04/19 12:59 Resp 18 08/04/19 12:59 BP 100/51 08/04/19 12:59 Pulse Ox 97 08/04/19 12:59 08/04/19 08/04/19 08/04/19 06:59 14:59 22:59 Intake Total 333.04 / 1784.54 610 / 610 Output Total 450 / 1950 300 / 300 Balance -116.96 / -165.46 310 / 310 Weight last 48 hrs Weight 140 lb Physical Exam Narrative: EXAM NARRATIVE: General: Alert and oriented x3 Eyes: PERRLA, EOMI Mouth: Mucous membranes dry without lesions. Cardiac: Regular rate and rhythm without murmurs Lungs: Significantly decreased air entry bilaterally. No appreciable wheezes, crackles or rhonchi. Abdomen: Soft, nontender, no hepatosplenomegaly noted Extremities: No edema. Bandage over incision on right hip is clean and dry. Urinary Catheter Management^: Gaines: Cath Placed During This Visit: yes Reason for Continuing Indwelling Catheter: Acute Urinary Retention or Obstruction Urinary Catheter Date of Insertion: 08/04/19 Urinary Catheter Time of Insertion: 09:50 Data : 08/04/19 05:05 08/04/19 05:05 Micro: Microbiology 08/03/19 20:00 MRSA Culture - Final Nose A&P Assessment and plan (1) Current chronic use of systemic steroids: Status: Acute (2) Osteoporosis: Status: Acute (3) Chronic hyponatremia: Status: Acute (4) Closed fracture of right hip: Status: Acute Qualifiers: Encounter type: initial encounter Qualified Code(s): S72.001A - Fracture of unspecified part of neck of right femur, initial encounter for closed fracture (5) Abnormal chest x-ray: Status: Acute Additional A&P Information 1. Right femoral neck fracture -the patient had hip surgery done today. He is doing well at this time. His pain is currently well controlled. Percocet seems to be better for him than the morphine. Okay to continue with oral pain meds at this time. The patient would like to be able to be discharged home with physical therapy and home if possible. We will see how he does over the next couple of days. 2. COPD -the patient has COPD and is relatively stable at this time. Continue with home medications. Respiratory therapy to assess and treat. 3. Possible pneumonia on chest x-ray -the patient has some findings of either interstitial fluid in the right lung versus pneumonia. His breathing is doing well at this time. He was given Rocephin in case of infection. He is also been given antibiotics for surgical prophylaxis. We will plan for a chest x-ray tomorrow morning to further evaluate. Clinically the patient seems to be doing well. 4. Hyponatremia -patient sodium levels have improved. He was placed on hypertonic saline initially and we will transition him back to IV fluids with normal saline. He seems to be dry at this time so we will increase to 75 mL/h. 5. Coronary artery disease -the patient has coronary artery disease and had an angiogram done in 2018 that showed blockages of 50% or less. The patient does not have any active chest pains and his EKG does not show any concerning findings for acute disease. The patient is currently chest pain-free. We will watch for any signs of changes. 6. Hypothyroidism -continue with home levothyroxine. 7. Lupus -the patient is currently off of his medication for lupus as it was causing eye issues. 8. Anemia -the patient's blood count is low prior to surgery. We will watch for signs of decreasing and transfuse if needed. 9. Prophylaxis -the patient is getting hydrocortisone to help decrease risk for adrenal crisis. Continue with SCDs. Restart Brilinta when okayed by orthopedics. Preferably by tomorrow morning. Will likely need heparin as well plan to restart this by tomorrow morning if there are no concerns from Ortho. Attestations Medical Necessity Statement*: The patient continues need inpatient care as he recovers after a hip fracture. He will likely need at least 1-2 more days of inpatient care prior to discharge. 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
[2019-08-04] MEDS: artificial tears Op Soln 15 mL Btl 1 DROP EYE-BOTH (16:13)
[2019-08-04] MEDS: sennosides-docusate Tablet 1 TAB PO (17:49)
[2019-08-04] MEDS: iron polysaccharide complex 150 mg Capsule PO (17:49)
[2019-08-04] MEDS: calcium carbonate 500 mg Chew Tablet 1000 MG PO (17:49)
[2019-08-04] MEDS: CLONazepam 0.5 mg Tablet PO (17:50)
[2019-08-04] MEDS: sennosides-docusate Tablet 2 TAB PO (17:50)
[2019-08-04] MEDS: sodium chloride 0.9% 1,000 ML 75 ML IV (21:00)
[2019-08-04] MEDS: cefTRIAXone 2,000 MG in sodium chloride 0.9% (plus) 50 ML 100 MG IV (22:32)
[2019-08-04 23:51] LABS: Glucose Point of Care 107 mg/dL (70-110)
[2019-08-05] VITALS (11 sets, daily range): BP systolic 97–153; BP diastolic 53–87; PULSE 62–74; RESP 16–20; TEMP 36.3–36.8; O2SAT 92–100
[2019-08-05] MEDS: CELEcoxib 200 mg Capsule PO ×2 (00:38→13:10)
[2019-08-05 05:43] LABS: Basophils % 0.7 %; Eosinophils # 0.2 10^3/uL (0.0-0.8); Eosinophils % 2.6 %; Hematocrit 22.9 % (42.0-52.0); Hemoglobin 7.2 g/dL (11.7-16.6); Lymphocytes # 1.1 10^3/uL (0.8-4.8); Lymphocytes % 18.7 %; Mean Corpuscular HGB Conc 31.4 g/dL (30.0-36.0); Mean Corpuscular Hemoglobin 32.3 pg (28.0-34.0); Mean Corpuscular Volume 102.7 fL (80-94); Mean Platelet Volume 10.8 fL (7.4-10.4); Monocytes # 0.6 10^3/uL (0.2-0.9); Monocytes % 10.8 %; Neutrophils # 3.9 10^3/uL (1.8-7.7); Neutrophils % 66.3 %; Nucleated Red Blood Cells % 0 %; Platelet Count 153 10^3/cmm (130-400); Red Blood Count 2.23 10^6/uL (4.1-5.3); Red Cell Distribution Width 14.1 % (12.1-15.1); White Blood Count 5.8 10^3/uL (4.0-10.0)
[2019-08-05 06:11] LABS: Alanine Aminotransferase 14 U/L (0-41); Albumin Level 2.7 g/dL (3.5-5.2); Alkaline Phosphatase 75 IU/L (40-130); Anion Gap 13.9 (5-19); Aspartate Amino Transferase 22 U/L (0-40); Blood Urea Nitrogen 17 mg/dL (8-23); Calcium 8.3 mg/dL (8.5-10.5); Carbon Dioxide 22 mmol/L (22-29); Chloride 104 mmol/L (98-107); Globulin 2.3 g/dL (1.3-4.6); Glucose 96 mg/dL (65-115); Magnesium 1.9 mg/dL (1.7-2.3); NT Pro B Type Natriuretic Pept 5718 pg/mL (0-125); Osmolality Calculated 278 mOsm/kg (285-295); Potassium 3.9 mmol/L (3.5-5.1); Sodium 136 mmol/L (136-145); Total Bilirubin 0.2 mg/dL (0.15-1.2)
[2019-08-05 06:33] LABS: Glucose Point of Care 104 mg/dL (70-110)
--- NOTE | 2019-08-05 07:00 | XR_ITS ---
WS: [id number] PORTABLE CHEST HISTORY: Cough COMPARISON: 08/02/2019 LEFT subclavian dual lead permanent pacer. Hyperexpanded lungs with changes of emphysema. Overall moderate improvement in aeration since the jessica or study. Continued coarsened interstitial markings predominantly throughout the RIGHT upper lobe. St able moderate elevation LEFT diaphragm. No pleural effusion or pneumothorax. Cardiac size: Normal. Mediastinum/Aorta: Mild atherosclerosis aorta. Prior vertebroplasties at several levels. XR/XR chest 1V portable [id number] IMPRESSION: 1. Significant improvement in aeration throughout the RIGHT lung compared to t he prior study. 2. Chronic emphysema.
--- NOTE | 2019-08-05 08:30 | P.PN_ITS ---
Subjective Subjective: Interval history: The patient is feeling well today. His pain is currently well controlled. The patient denies any dyspnea or chest pains. He denies any abdominal pain. Vitals/I&O/Wt Last Vital Signs Temp 97.9 F 08/05/19 07:41 Pulse 74 08/05/19 07:41 Resp 16 08/05/19 07:41 BP 112/65 08/05/19 07:41 Pulse Ox 92 08/05/19 07:41 08/04/19 08/05/19 08/05/19 22:59 06:59 14:59 Intake Total 722.75 / 1432.75 771.25 / 2204.00 Output Total 300 / 600 Balance 722.75 / 1132.75 471.25 / 1604.00 Physical Exam Narrative: EXAM NARRATIVE: General: Alert and oriented x3 Eyes: PERRLA, EOMI Mouth: Mucous membranes moist without lesions. Cardiac: Regular rate and rhythm without murmurs Lungs: Significantly decreased air entry bilaterally. No appreciable wheezes, crackles or rhonchi. Abdomen: Soft, nontender, no hepatosplenomegaly noted Extremities: No edema. Bandage over incision on right hip is clean and dry. Urinary Catheter Management^: Gaines: Cath Placed During This Visit: yes Reason for Continuing Indwelling Catheter: Acute Urinary Retention or Obstruction Urinary Catheter Date of Insertion: 08/04/19 Urinary Catheter Time of Insertion: 09:50 Data : 08/05/19 04:50 08/05/19 04:50 Micro: Microbiology 08/03/19 20:00 MRSA Culture - Final Nose A&P Assessment and plan (1) Current chronic use of systemic steroids: Status: Acute (2) Osteoporosis: Status: Acute (3) Chronic hyponatremia: Status: Acute (4) Closed fracture of right hip: Status: Acute Qualifiers: Encounter type: initial encounter Qualified Code(s): S72.001A - Fracture of unspecified part of neck of right femur, initial encounter for closed fracture (5) Abnormal chest x-ray: Status: Acute Additional A&P Information 1. Right femoral neck fracture -the patient had hip surgery done on 08/04/2019. He is doing well at this time. His pain is currently well controlled. Percocet seems to be better for him than the morphine. Okay to continue with oral pain meds at this time. The patient would like to be able to be discharged home with physical therapy at home if possible. We will see how he does over the next couple of days. Possibly discharge home tomorrow if he is doing well and okay with Ortho. 2. COPD -the patient has COPD and is relatively stable at this time. Continue with home medications. Respiratory therapy to assess and treat. 3. Possible pneumonia on chest x-ray -the patient has been treated with Rocephin and his chest x-ray looks significantly better. Clinically he is doing well. 4. Hyponatremia -we will turn off his IV fluids for today since he will be getting packed red blood cells and his oral intake is better. 5. Coronary artery disease -the patient has coronary artery disease and had an angiogram done in 2018 that showed blockages of 50% or less. The patient does not have any active chest pains and his EKG does not show any concerning findings for acute disease. The patient is currently chest pain-free. We will watch for any signs of changes. 6. Hypothyroidism -continue with home levothyroxine. 7. Lupus -the patient is currently off of his medication for lupus as it was causing eye issues. 8. Anemia -the patient's blood count dropped to 7.2 today. This would be an expected drop. That being said with his cardiac history we will go ahead and transfuse 2 units. The patient is in agreement with this. We will recheck blood count this afternoon and tomorrow morning. 9. Prophylaxis -the patient is getting hydrocortisone to help decrease risk for adrenal crisis. Continue with SCDs. Restart Brilinta when okayed by orthopedics. Preferably today if possible. Will likely need heparin or Lovenox as well plan to restart this morning if okayed by Ortho. Attestations Medical Necessity Statement*: The patient continues need inpatient care as we manage his anemia and medical issues in combination with his hip fracture. Possible discharge home tomorrow if okayed by orthopedics and if he is medically stable at that time. 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
[2019-08-05] MEDS: levothyroxine 100 mcg Tablet PO (08:40)
[2019-08-05] MEDS: sennosides-docusate Tablet 2 TAB PO ×2 (08:40→17:33)
[2019-08-05] MEDS: calcium carbonate 500 mg Chew Tablet 1000 MG PO ×2 (08:40→17:33)
[2019-08-05] MEDS: CLONazepam 0.5 mg Tablet PO ×2 (08:41→17:33)
[2019-08-05] MEDS: atorvastatin 40 mg Tablet 20 MG PO (08:41)
[2019-08-05] MEDS: aspirin 325 mg EC Tablet PO (08:41)
[2019-08-05] MEDS: cholecalciferol (vitamin D3) 1,000 unit Tablet 1000 UNIT PO (08:41)
[2019-08-05] MEDS: pantoprazole DR 40 mg Tablet PO (08:41)
[2019-08-05] MEDS: iron polysaccharide complex 150 mg Capsule PO ×2 (08:41→17:33)
[2019-08-05] MEDS: multivitamin therapeutic Tablet 1 TAB PO (08:42)
[2019-08-05] MEDS: mupirocin oint 22 gm 1 APPLIC NASAL ×2 (08:44→19:30)
[2019-08-05] MEDS: chlorhexidine gluconate 0.12% Btl 473 mL 30 ML MUCOUS MEM ×4 (08:45→20:37)
--- NOTE | 2019-08-05 08:50 | PC.SOCIAL ---
IMM Page 2 of IMM explained to patient. He verbalizes understanding. Initialed, dated, and timed and placed in chart. Copy provided to patient.
[2019-08-05 11:55] LABS: Glucose Point of Care 102 mg/dL (70-110)
[2019-08-05] MEDS: cefTRIAXone 2,000 MG in sodium chloride 0.9% (plus) 50 ML 50 MG IV (13:19)
--- NOTE | 2019-08-05 14:11 | PC.NURSE ---
Patient Gaines cath removed at 1300, patient tolerated well. Patient received first Ice to right hip. Dressing removed per DR. Allen and island dressing placed on site, with steri-strips intact. Urinal given to patient. Patient rec 2nd unit of red blood cells and tolerating well. Foot pump to right foot, and scd to left leg on and functioning correctly.
--- NOTE | 2019-08-05 14:37 | PM.PN ---
Subjective Subjective: Interval history: Patient notes he is doing well. He has minimal complaints of pain. He is working with physical therapy. He did have decreased blood pressure resulting in symptoms, and he has received blood products today per Dr. Dumont. Medications: Reviewed: Yes Medication Review Details: The patient states hydrocodone works better for him than oxycodone. I have discontinued my oxycodone order and written for hydrocodone. Vitals/I&O/Wt Last Vital Signs Temp 97.5 F L 08/05/19 12:46 Pulse 74 08/05/19 12:46 Resp 20 H 08/05/19 12:46 BP 132/76 08/05/19 12:46 Pulse Ox 100 08/05/19 12:46 08/04/19 08/05/19 08/05/19 22:59 06:59 14:59 Intake Total 722.75 / 1432.75 771.25 / 2204.00 495 / 495 Output Total 300 / 600 300 / 300 Balance 722.75 / 1132.75 471.25 / 1604.00 195 / 195 Physical Exam Const: COMMON NORMALS: no acute distress, average body habitus, patient oriented x3 and alert GENERAL APPEARANCE: cooperative and comfortable ORIENTATION/CONSCIOUSNESS: Yes awake HENMT: COMMON NORMALS: normocephalic and atraumatic HEAD & SCALP: normocephalic and atraumatic Eye: GENERAL EYE: appearance normal, both eyes and all related structures Chest: COMMONS NORMALS: normal inspection of the chest Resp: COMMON NORMALS: normal respiratory effort EFFORT & INSPECTION: Yes able to speak in complete sentences and Yes symmetric chest movement Extremity: RIGHT LOWER EXTREMITY: Yes hip joint Right hip: Yes inspection (Dressing is removed. There is no drainage. There is no evidence of infection. Steri-Strips are intact.), Yes palpation (Minimally tender to palpation.), Yes ROM (Not evaluated.) and Yes neurovascular exam (Intact distal to the surgical site. Motor function is intact.) Neuro: COMMON NORMALS: patient oriented x3 SENSORIUM/ORIENTATION: Yes alert Psych: COMMON NORMALS: mental status grossly normal APPEARANCE: Yes grossly normal ATTITUDE: Yes calm and Yes engaged ATTENTION/CONCENTRATION: Yes attention grossly intact Skin: COMMON NORMALS: no rashes or lesions noted GENERAL SKIN EXAM: no rashes or lesions noted Urinary Catheter Management^: Gaines: Cath Placed During This Visit: yes Reason for Continuing Indwelling Catheter: Acute Urinary Retention or Obstruction Urinary Catheter Date of Insertion: 08/04/19 Urinary Catheter Time of Insertion: 09:50 Data : 08/05/19 04:50 08/05/19 04:50 Micro: Microbiology 08/05/19 06:30 Gram Stain - Final Sputum - Expectorated Sputum 08/03/19 20:00 MRSA Culture - Final Nose A&P Assessment and plan (1) History of right hip hemiarthroplasty: Patient is doing well following bipolar hip arthroplasty for his subcapital right hip fracture. He is working with physical therapy. He did have postoperative anemia today, and this was treated with 2 units of packed red blood cells per Dr. Dumont, the primary care physician managing his case. From an orthopedic perspective, the patient is ready for discharge when medically appropriate. Status: Acute (2) Subcapital fracture of right hip: Status: Resolved Qualifiers: Encounter type: initial encounter Fracture type: closed Qualified Code(s): S72.011A - Unspecified intracapsular fracture of right femur, initial encounter for closed fracture Attestations Medical Necessity Statement*: Patient requires inpatient treatment following subcapital hip fracture and subsequent surgery with postoperative anemia. 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
[2019-08-05] MEDS: ticagrelor 90 mg Tablet PO ×2 (14:49→19:30)
--- NOTE | 2019-08-05 18:37 | PC.NURSE ---
Patient denied pain, and declined medication for pain. First Ice placed to right hip incision. Patient states he was ready to go home. SCD and foot pump to lower extremities, on and functioning. Patient voiding, without any difficulty in urinal.
[2019-08-05 18:44] LABS: Basophils % 0.5 %; Eosinophils # 0.1 10^3/uL (0.0-0.8); Eosinophils % 1.2 %; Hematocrit 34.5 % (42.0-52.0); Hemoglobin 10.8 g/dL (11.7-16.6); Lymphocytes # 1.2 10^3/uL (0.8-4.8); Lymphocytes % 13.6 %; Mean Corpuscular HGB Conc 31.3 g/dL (30.0-36.0); Mean Corpuscular Hemoglobin 33.3 pg (28.0-34.0); Mean Corpuscular Volume 106.5 fL (80-94); Mean Platelet Volume 10.9 fL (7.4-10.4); Monocytes # 0.8 10^3/uL (0.2-0.9); Monocytes % 9.6 %; Neutrophils # 6.3 10^3/uL (1.8-7.7); Neutrophils % 74.5 %; Nucleated Red Blood Cells % 0 %; Platelet Count 144 10^3/cmm (130-400); Red Blood Count 3.24 10^6/uL (4.1-5.3); Red Cell Distribution Width 15.1 % (12.1-15.1); White Blood Count 8.5 10^3/uL (4.0-10.0)
[2019-08-05 23:35] LABS: Glucose Point of Care 93 mg/dL (70-110)
[2019-08-06] MEDS: CELEcoxib 200 mg Capsule PO (00:29)
[2019-08-06] MEDS: cefTRIAXone 2,000 MG in sodium chloride 0.9% (plus) 50 ML 50 MG IV (00:30)
[2019-08-06 04:00] VITALS: BP 132/75; PULSE 76; RESP 20; TEMP 36.3; O2SAT 100
[2019-08-06 05:46] LABS: Glucose Point of Care 80 mg/dL (70-110)
--- NOTE | 2019-08-06 06:07 | PC.NURSE ---
patient blood sugar 80, refuses snacks and juice, education given, patient states im fine i dont want it patient on q6 accu checks.
[2019-08-06 06:32] LABS: Basophils % 0.5 %; Eosinophils # 0.1 10^3/uL (0.0-0.8); Eosinophils % 1.5 %; Hematocrit 30.3 % (42.0-52.0); Lymphocytes # 0.9 10^3/uL (0.8-4.8); Lymphocytes % 11.4 %; Mean Corpuscular Hemoglobin 32.3 pg (28.0-34.0); Mean Corpuscular Volume 97.7 fL (80-94); Mean Platelet Volume 10.9 fL (7.4-10.4); Monocytes # 0.8 10^3/uL (0.2-0.9); Monocytes % 9.9 %; Neutrophils % 76.3 %; Nucleated Red Blood Cells % 0 %; Platelet Count 148 10^3/cmm (130-400); Red Cell Distribution Width 15.1 % (12.1-15.1); White Blood Count 7.9 10^3/uL (4.0-10.0)
[2019-08-06 06:43] LABS: Alanine Aminotransferase 14 U/L (0-41); Albumin Level 2.7 g/dL (3.5-5.2); Alkaline Phosphatase 93 IU/L (40-130); Anion Gap 15.8 (5-19); Aspartate Amino Transferase 25 U/L (0-40); Blood Urea Nitrogen 12 mg/dL (8-23); Calcium 8.1 mg/dL (8.5-10.5); Carbon Dioxide 20 mmol/L (22-29); Chloride 104 mmol/L (98-107); Globulin 2.3 g/dL (1.3-4.6); Glucose 80 mg/dL (65-115); Magnesium 1.9 mg/dL (1.7-2.3); Osmolality Calculated 277 mOsm/kg (285-295); Phosphorus 2.7 mg/dL (2.5-4.5); Potassium 3.8 mmol/L (3.5-5.1); Sodium 136 mmol/L (136-145); Total Bilirubin 0.4 mg/dL (0.15-1.2)
[2019-08-06 07:19] VITALS: BP 148/77; PULSE 76; RESP 16; TEMP 36.4; O2SAT 99
[2019-08-06] MEDS: sennosides-docusate Tablet 2 TAB PO (09:12)
[2019-08-06] MEDS: cholecalciferol (vitamin D3) 1,000 unit Tablet 1000 UNIT PO (09:13)
[2019-08-06] MEDS: aspirin 81 mg EC Tablet PO (09:13)
[2019-08-06] MEDS: multivitamin therapeutic Tablet 1 TAB PO (09:13)
[2019-08-06] MEDS: iron polysaccharide complex 150 mg Capsule PO (09:13)
[2019-08-06] MEDS: pantoprazole DR 40 mg Tablet PO (09:13)
[2019-08-06 11:39] VITALS: BP 149/90; PULSE 77; RESP 16; TEMP 36.9; O2SAT 96
[2019-08-06 11:41] LABS: Glucose Point of Care 113 mg/dL (70-110)
--- NOTE | 2019-08-06 12:28 | P.PN_ITS ---
Subjective Subjective: Interval history: The patient is doing well. He is planning discharge home today. He has not been taking any pain medication. Medications: Reviewed: Yes Medication Review Details: The patient states hydrocodone works better for him than oxycodone. I have discontinued my oxycodone order and written for hydrocodone. He has not been taking this, however. Vitals/I&O/Wt Last Vital Signs Temp 98.5 F 08/06/19 11:39 Pulse 77 08/06/19 11:39 Resp 16 08/06/19 11:39 BP 149/90 08/06/19 11:39 Pulse Ox 96 08/06/19 11:39 08/05/19 08/06/19 08/06/19 22:59 06:59 14:59 Intake Total 625 / 1325 120 / 1445 Output Total 750 / 1050 250 / 1300 200 / 200 Balance -125 / 275 -130 / 145 -200 / -200 Physical Exam Const: COMMON NORMALS: no acute distress, average body habitus, patient oriented x3 and alert GENERAL APPEARANCE: cooperative and comfortable ORIENTATION/CONSCIOUSNESS: Yes awake HENMT: COMMON NORMALS: normocephalic and atraumatic HEAD & SCALP: normocephalic and atraumatic Eye: GENERAL EYE: appearance normal, both eyes and all related structures Chest: COMMONS NORMALS: normal inspection of the chest Resp: COMMON NORMALS: normal respiratory effort EFFORT & INSPECTION: Yes able to speak in complete sentences and Yes symmetric chest movement Extremity: RIGHT LOWER EXTREMITY: Yes hip joint (The wound is benign. Dressing is dry. There is no swelling. He is neurologically intact. There is minimal to no pain to palpation.) Neuro: COMMON NORMALS: patient oriented x3 SENSORIUM/ORIENTATION: Yes alert Psych: COMMON NORMALS: mental status grossly normal APPEARANCE: Yes grossly normal ATTITUDE: Yes calm and Yes engaged ATTENTION/CONCENTRATION: Yes attention grossly intact Skin: COMMON NORMALS: no rashes or lesions noted GENERAL SKIN EXAM: no rashes or lesions noted Urinary Catheter Management^: Gaines: Cath Placed During This Visit: yes Reason for Continuing Indwelling Catheter: Acute Urinary Retention or Obstruction Urinary Catheter Date of Insertion: 08/04/19 Urinary Catheter Time of Insertion: 09:50 Data : 08/06/19 05:32 08/06/19 05:32 Micro: Microbiology 08/05/19 06:30 Gram Stain - Final Sputum - Expectorated Sputum Sputum Culture - Preliminary A&P Assessment and plan (1) History of right hip hemiarthroplasty: Patient is doing well following bipolar hip arthroplasty for his subcapital right hip fracture. He is working with physical therapy. He feels he is ready for discharge to home. I am in agreement with this. This will depend upon the medical service to determine when he is appropriate medically. His H&H appears stabilized. To be weightbearing as tolerated and will follow-up with me in approximately 2 weeks. Status: Acute (2) Subcapital fracture of right hip: Status: Resolved Qualifiers: Encounter type: initial encounter Fracture type: closed Qualified Code(s): S72.011A - Unspecified intracapsular fracture of right femur, initial encounter for closed fracture Attestations Medical Necessity Statement*: Per primary care physician, but he did require inpatient admission for hip fracture and subsequent surgical intervention. 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
[2019-08-06] MEDS: calcium carbonate 500 mg Chew Tablet 1000 MG PO (12:31)
[2019-08-06] MEDS: CLONazepam 0.5 mg Tablet PO (12:31)
[2019-08-06] MEDS: levothyroxine 100 mcg Tablet PO (12:32)
[2019-08-06] MEDS: chlorhexidine gluconate 0.12% Btl 473 mL 30 ML MUCOUS MEM (12:32)
[2019-08-06] MEDS: ticagrelor 90 mg Tablet PO (12:33)
[2019-08-06] MEDS: mupirocin oint 22 gm 1 APPLIC NASAL (12:33)
[2019-08-06] MEDS: atorvastatin 40 mg Tablet 20 MG PO (12:33)
--- NOTE | 2019-08-06 13:01 | P.DS_ITS ---
Discharge Providers Date of Admission: 08/02/19 20:24 Date of Discharge: August 06, 2019 Attending Provider at Admission: Chas Joyce MD Attending Provider at Discharge: Clayton Dumont MD Primary Care Provider: Jose Manuel Oliver MD Diagnoses at Discharge Discharge Diagnosis (1) History of right hip hemiarthroplasty: Status: Acute (2) Subcapital fracture of right hip: Status: Resolved Qualifiers: Encounter type: initial encounter Fracture type: closed Qualified Code(s): S72.011A - Unspecified intracapsular fracture of right femur, initial encounter for closed fracture Reason for Visit Reason for Visit: Reason For Visit: fall,right hip pain Hospital Course Hospital Course: The patient was admitted for mechanical fall leading to a right hip fracture. The patient had a right bipolar hip arthroplasty done and is done well after surgery. He has been able to ambulate with physical therapy. He can get to the bathroom by himself with standby assist. The patient's pain is currently well controlled and he has not needed narcotics for pain management. Prior to the surgery the patient did have a hemoglobin of 9.7 and his hemoglobin dropped to 7.2 after the surgery. The patient was given 2 units of packed red blood cells secondary to having underlying cardiac issues. The patient has not had any complications with this. His hemoglobin was 10.0 at the time of discharge. The patient will need to have his underlying anemia worked up as an outpatient. He had an upper and lower endoscopy done approximately a year ago per his history. The patient also had a chest x-ray concerning for possible pneumonia at that time admission and was started on Rocephin IV. His follow-up chest x-ray looks significantly better and we will discharge him home on Ceftin ear for 5 more days. Overall his lungs are sounding stable at this time. The patient does have underlying significant COPD. The patient was mildly nauseous prior to discharge and he does not have any abdominal pain at this time. He has not eaten anything today by choice. The patient has been able to hold down fluids well. The patient has not had a bowel movement since admission. He stated that the nausea is not significant and would like to be discharged home and to take [id number] medications for constipation. He was advised that if worsening to let us know. The patient did have hyponatremia upon admission and his citalopram was stopped. His sodium levels have improved. He will be discharged home on a lower dose of citalopram and his sodium levels will need to be followed as an outpatient. The patient will follow-up with Dr. Allen in 2 weeks as an outpatient for his hip. All questions were answered. The patient is in agreement with discharge home at this time. Physical Exam Narrative: EXAM NARRATIVE: General: Alert and oriented x3 Eyes: PERRLA, EOMI Mouth: Mucous membranes moist without lesions. Cardiac: Regular rate and rhythm without murmurs Lungs: Significantly decreased air entry bilaterally. No appreciable wheezes, crackles or rhonchi. Abdomen: Soft, nontender, no hepatosplenomegaly noted Extremities: No edema. Bandage over incision on right hip is clean and dry. Urinary Catheter Management^: Gaines: Cath Placed During This Visit: yes Reason for Continuing Indwelling Catheter: Acute Urinary Retention or Obstruction Urinary Catheter Date of Insertion: 08/04/19 Urinary Catheter Time of Insertion: 09:50 Discharge Data Data Completed and Pending: Completed Studies During Hospitalization Category Date Time Status XR chest 1V nataliya ble [id number] Routine Exams 08/05/19 07:00 Completed XR chest 1V nataliya ble [id number] Stat Exams 08/02/19 18:56 Completed XR hip RT 2-3V wo /w pel* [id number] Stat Exams 08/02/19 18:43 Completed XR pelvis 1-2V* 7 [id number] Routine Exams 08/04/19 11:13 Completed Pending at discharge Category Date Time Status Complete Blood Co unt w/Auto AM LABS Lab 08/07/19 04:00 Ordered Sputum Culture an d Gram Stain Lolisi ne Lab 08/03/19 18:28 Results Labs from last 24 hours 08/06/19 08/06/19 08/06/19 11:36 05:41 05:32 WBC RBC Hgb Hct MCV MCH MCHC RDW Plt Count MPV Neut % (Auto) Lymph % (Auto) Bureau % (Auto) Eos % (Auto) Baso % (Auto) Neut # (Auto) Lymph # (Auto) Bureau # (Auto) Eos # (Auto) Baso # (Auto) Nucleated RBC % (a uto) Nucleated RBCs # Sodium 136 Potassium 3.8 Chloride 104 Carbon Dioxide 20 L Anion Gap 15.8 BUN 12 Creatinine 0.6 L Glucose 80 POC Glucose 113 80 Calculated Osmolal ity 277 L Calcium 8.1 L Phosphorus 2.7 Magnesium 1.9 Total Bilirubin 0.4 AST 25 ALT 14 Alkaline Phosphata se 93 Total Protein 5.0 L Albumin 2.7 L Globulin 2.3 Crossmatch 08/06/19 08/05/19 08/05/19 05:32 23:21 18:18 WBC 7.9 8.5 RBC 3.10 L 3.24 L Hgb 10.0 L 10.8 L D Hct 30.3 L 34.5 L D MCV 97.7 H D 106.5 H MCH 32.3 33.3 MCHC 33.0 D 31.3 RDW 15.1 15.1 Plt Count 148 144 MPV 10.9 H 10.9 H Neut % (Auto) 76.3 74.5 Lymph % (Auto) 11.4 13.6 Bureau % (Auto) 9.9 9.6 Eos % (Auto) 1.5 1.2 Baso % (Auto) 0.5 0.5 Neut # (Auto) 6.0 6.3 Lymph # (Auto) 0.9 1.2 Bureau # (Auto) 0.8 0.8 Eos # (Auto) 0.1 0.1 Baso # (Auto) 0.0 0.0 Nucleated RBC % (a uto) 0 0 Nucleated RBCs # 0.0 0.0 Sodium Potassium Chloride Carbon Dioxide Anion Gap BUN Creatinine Glucose POC Glucose 93 Calculated Osmolal ity Calcium Phosphorus Magnesium Total Bilirubin AST ALT Alkaline Phosphata se Total Protein Albumin Globulin Crossmatch 08/02/19 19:05 WBC RBC Hgb Hct MCV MCH MCHC RDW Plt Count MPV Neut % (Auto) Lymph % (Auto) Bureau % (Auto) Eos % (Auto) Baso % (Auto) Neut # (Auto) Lymph # (Auto) Bureau # (Auto) Eos # (Auto) Baso # (Auto) Nucleated RBC % (a uto) Nucleated RBCs # Sodium Potassium Chloride Carbon Dioxide Anion Gap BUN Creatinine Glucose POC Glucose Calculated Osmolal ity Calcium Phosphorus Magnesium Total Bilirubin AST ALT Alkaline Phosphata se Total Protein Albumin Globulin Crossmatch See Detail Vitals: Last Vital Signs Temp 98.5 F 08/06/19 11:39 Pulse 77 08/06/19 11:39 Resp 16 08/06/19 11:39 BP 149/90 08/06/19 11:39 Pulse Ox 96 08/06/19 11:39 Discharge Plan Discharge Patient Disposition: Home Health Service Condition: Stable Prescriptions: New hydrocodone-acetaminophen 5-325 mg Tablet 1 tab PO Q6H PRN (Reason: Moderate Pain) Qty: 20 RF: 0 cefdinir 300 mg capsule 300 mg PO BID 5 Days Qty: 10 RF: 0 citalopram 20 mg tablet 20 mg PO DAILY Qty: 30 RF: 0 Continued furosemide 20 mg tablet 20 mg PO QAM Qty: 90 RF: 3 prednisone 10 mg tablet See Rx Instructions .ROUTE .COMPLEX RF: 0 prednisone 5 mg tablet See Rx Instructions .ROUTE .COMPLEX RF: 0 gabapentin 100 mg capsule 100 mg PO BID RF: 0 cholecalciferol (vitamin D3) 1,250 mcg (50,000 unit) capsule See Rx Instructions .ROUTE .COMPLEX RF: 0 Klor-Con 10 tablet 10 meq PO DAILY RF: 0 atorvastatin 10 mg PO DAILY RF: 0 Klonopin 0.5 mg Tablet 0.5 mg PO BID RF: 0 leflunomide 10 mg Tablet 5 mg PO DAILY RF: 0 pantoprazole 40 mg Tablet,Delayed Release (Dr/Ec) 40 mg PO DAILY RF: 0 levothyroxine 100 mcg Capsule 100 mcg PO DAILY RF: 0 Brilinta 90 mg Tablet 135 mg PO DAILY RF: 0 Stiolto Respimat 2.5-2.5 mcg/actuation Mist 1 puff inhalation BID RF: 0 magnesium oxide 400 mg magnesium Tablet 400 mg PO DAILY RF: 0 fiber 500 mg tablet 400 mg PO DAILY RF: 0 Discontinued citalopram [Celexa] 40 mg tablet 40 mg PO DAILY RF: 0 Discharge Orders: Discharge Order (Routine); Ordered 08/06/19 Ordered By: Laura Allen Referrals: [facility] [Outside] Laura Allen MD [Physician] - 08/26/19 9:30 am () Jose Manuel Oliver MD [Primary Care Provider] - 08/12/19 10:20 am Discharge Activity: Limit activity as instructed and As per PT/OT instructions Activity Restrictions/Additional Instructions: Posterior hip precautions as discussed by physical therapy with you here in the hospital. You may remove dressing as needed. Keep wound covered. 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
--- NOTE | 2019-08-06 13:22 | PC.NURSE ---
Patient seen by Dr. Allen and DR. Dumont. Orders for D/C to home with homehealth. PIIDS to right and left arms removed. Intact . Patient tolerated well. Pressure dressing applied.
[2019-08-06 14:55] VITALS: BP 149/90; PULSE 77; RESP 16; TEMP 36.9; O2SAT 96
== END 2019-08-06 14:57 | disposition home health service (06) | DRG 469 ==
LOC: ER 20:23 → MEDSURG 21:01
PROVIDERS: Emergency Medicine; Specialist; Admitting Provider Internal Medicine; PCP Family Medicine; Visit Provider Family Medicine
PROC: 0SRR0JZ Replacement of Right Hip Joint, Femoral Surface with Synthetic Substitute, Open Approach (ICD-10-PCS; CPT 27125; principal; 2019-08-04 08:15)
DX: M80.051A Age-related osteoporosis with current pathological fracture, right femur, initial encounter for fracture (principal); J18.9 Pneumonia, unspecified organism; E87.1 Hypo-osmolality and hyponatremia; I50.30 Unspecified diastolic (congestive) heart failure; M32.9 Systemic lupus erythematosus, unspecified; I25.10 Atherosclerotic heart disease of native coronary artery without angina pectoris; Z95.5 Presence of coronary angioplasty implant and graft; Z95.0 Presence of cardiac pacemaker; E03.9 Hypothyroidism, unspecified; Z79.52 Long term (current) use of systemic steroids; E87.8 Other disorders of electrolyte and fluid balance, not elsewhere classified; E16.2 Hypoglycemia, unspecified; M06.9 Rheumatoid arthritis, unspecified; Z87.891 Personal history of nicotine dependence; Z87.11 Personal history of peptic ulcer disease; D64.9 Anemia, unspecified
CPT/HCPCS: 12345; 36415; 36416; 36430; 51702; 71045; 72170; 73502; 80048; 80053; 82533; 82962; 83735; 83880; 83930; 83935; 84100; 84295; 84443; 84550; 85025; 85610; 86141; 86850; 86900; 86920; 87070; 87205; 87641; 93005; 96375; 97110; 97116; 97161; 97166; 97530; 97535; 99283; C1776; J0131; J0690; J0696; J1644; J1720; J2001; J2270; J2405; J2704; J2710; J3010; J3370; J3490; J7030; J7040; J7050; J7131; P9016

== ENCOUNTER → 2019-08-26 09:38 | Outpatient (BNVA) | payer OTHER, SELFPAY | PROVIDERS: PCP Family Medicine; Visit Provider Specialist | DX: S72.001A Fracture of unspecified part of neck of right femur, initial encounter for closed fracture (principal); Z96.641 Presence of right artificial hip joint; X58.XXXA Exposure to other specified factors, initial encounter | CPT/HCPCS: 73502 ==

== ENCOUNTER 2019-09-03 14:56 | Outpatient (CLI) | payer OTHER, SELFPAY ==
--- NOTE | 2019-09-03 15:09 | XR_ITS ---
WS: [id number] SCREENING DEXA SCAN [employer] CLINICAL INFORMATION: HIP FRACTURE, RIGHT, OSTEOPOROSIS COMPARISON: September 06, 2015 FINDINGS: Left femoral neck bone mineral density measures 0.745. This corresponds to a T score of -2.5 and Z sc ore of -1.1. Left forearm bone mineral density measures 0.873 with a T score of -1.2 and Z score of -0.2 XR/XR DEXA axial skeleton* 15586 IMPRESSION: Osteoporosis in the left femoral neck. Osteopenia in the left forearm. Patient's FRAX calculated 10 year probability for major osteoporotic fracture i s 10.3 % and osteoporotic hip fracture is 3.7%. Bone mineral density in the left femur has decreased -4.9% and -5.5% in the lef t forearm since 2016.
== END 2019-09-03 14:57 | disposition home or self-care (01) ==
LOC: RADWPI 14:58
PROVIDERS: Family Provider Family Medicine; PCP Family Medicine; Visit Provider Family Medicine
DX: M80.851 Other osteoporosis with current pathological fracture, right femur (principal); M81.8 Other osteoporosis without current pathological fracture
CPT/HCPCS: 77080

== ENCOUNTER → 2019-09-23 09:37 | Outpatient (BNVA) | payer OTHER, SELFPAY | PROVIDERS: Family Provider Family Medicine; PCP Family Medicine; Visit Provider Specialist | DX: S72.001A Fracture of unspecified part of neck of right femur, initial encounter for closed fracture (principal); Z96.641 Presence of right artificial hip joint; X58.XXXA Exposure to other specified factors, initial encounter | CPT/HCPCS: 73502 ==

== ENCOUNTER 2019-09-28 06:53 | Day surgery (SDC) | payer OTHER, MEDICARE, SELFPAY ==
[2019-09-27 11:04] VITALS: BMI 21.4
[2019-09-28 07:16] VITALS: BP 109/78; PULSE 92; RESP 18; TEMP 36.6; O2SAT 98
[2019-09-28] MEDS: sodium chloride 0.9% 1,000 ML 30 ML IV (07:35)
--- NOTE | 2019-09-28 07:39 | ANES.PREANE2 ---
Pre-Anesthetic Assessment Pre-Anesthetic Assessment: Height/Weight: Height 1.75 m Weight 65.771 kg Temp Pulse Resp BP Pulse Ox 97.9 F 92 18 109/78 98 09/28/19 07:16 09/28/19 07:16 09/28/19 07:16 09/28/19 07:16 09/28/19 07:16 Preop Diagnosis: gi Proposed Procedure: Operation Date: 09/28/19 08:15 Proposed Procedures p EGD Dilation W/ Balloon poss biopsy 02403 R13.10(Not Applicable) - Ferdinand Gonsalez MD Familial anesthetic complications: hard time coming out of it Was Beta Toni taken within 24 hours: N/A Last intake: Intake Last Liquid Date 09/27/19 Last Liquid Time 20:00 Last Solid Date 09/27/19 Last Solid Time 20:00 Social: Social History: No alcohol and No tobacco Exam: Pre-Anes Outpt Exam: alert, oriented x 3, clear to auscultation bilaterally and regular rate & rhythm Airway: Cervical ROM: WNL MP: 2 Dentition: Full Pulmonary: Pulmonary: COPD (2L NC at night) CV/HEM: CV/HEM: Afib and CAD (stents > 10 years) Comments: pacemaker : : None reported Hepatic: Hepatic: None reported GI: GI: None reported Metabolic: Metabolic: Thyroid Musc/skel: Musc/skel: None reported Neuropsych: Neuropsych: None reported Anesthetic Plan: ASA status: 3 Anesthesia: MAC Other: last took brillinita on Risk of > 500 ml blood loss (7ml/kg in children): No Meds/Allergies Current Medications: Current Medications Generic Name Dose Route Start Last Admin Trade Name Freq PRN Reason Stop Dose Admin Sodium Chloride 1,000 mls @ 30 ml s/hr 09/28/19 07:00 09/28/19 07:35 Sodium Chloride 0.9% IV 09/29/19 06:59 30 mls/hr .Q24H HARRIET Administration PFSH Anesthesia PFSH: Medical History (Updated 09/24/19 @ 13:08 by Laura Allen MD) Bradycardia COPD (chronic obstructive pulmonary disease) Coronary artery disease Diastolic heart failure Gastric ulcer Exploratory laparotomy after perforation Hypothyroidism Lupus (systemic lupus erythematosus) Rheumatoid arthritis/lupus Orthostasis Syncope Secondary to polypharmacy in the past Surgical History H/O colonoscopy 5 yrs ago H/O esophagogastroduodenoscopy H/O hernia repair H/O knee surgery History of appendectomy History of cardiac cath No significant stenotic lesions were identified, 05/2017 History of right hip replacement Previous back surgery S/P coronary artery stent placement 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 Family History Brother Cancer Prostate cancer Father CAD (coronary artery disease) Mother CAD (coronary artery disease) Denies family history of Anesthesia complication Bleeding disorder Social History Smoking and tobacco status: former smoker Alcohol intake: current Alcohol type: beer Household members: family Housing: House Marital status: Current occupational status: retired History of recent travel: No Data Anesthesia Cardiac Studies: No Data to Display
--- NOTE | 2019-09-28 08:12 | W.PM.OPSUD ---
Surgery/Procedure H&P Update DATE OF PROCEDURE: September 28, 2019 DATE H&P PERFORMED: 09/17/19 H&P UPDATE INFORMATION: I have reviewed H&P completed within last 30 days, I have examined patient prior to procedure and No changes to prior documentation PREOP DIAGNOSIS: gi PLANNED PROCEDURE: Operation Date: 09/28/19 08:15 Proposed Procedures p EGD Dilation W/ Balloon poss biopsy [id number] R13.10(Not Applicable) - Ferdinand Gonsalez MD
--- NOTE | 2019-09-28 08:34 | SUR.OPER ---
0830 Balloon dilation performed, starting at 10 mm, ending with 18 mm.
[2019-09-28 08:44] VITALS: BP 122/67; PULSE 74; RESP 16; TEMP 36.2; O2SAT 100
[2019-09-28 08:53] VITALS: BP 123/85; PULSE 76; RESP 18; O2SAT 100
== END 2019-09-28 09:19 | disposition home or self-care (01) ==
PROVIDERS: PCP Family Medicine; Visit Provider Surgery
DX: R13.10 Dysphagia, unspecified (principal); K22.2 Esophageal obstruction; J44.9 Chronic obstructive pulmonary disease, unspecified; Z99.81 Dependence on supplemental oxygen; I48.91 Unspecified atrial fibrillation; I25.10 Atherosclerotic heart disease of native coronary artery without angina pectoris; Z95.5 Presence of coronary angioplasty implant and graft; Z95.0 Presence of cardiac pacemaker; E03.9 Hypothyroidism, unspecified; M06.9 Rheumatoid arthritis, unspecified; Z87.891 Personal history of nicotine dependence
CPT/HCPCS: 12345; 43239; 43249; 88305; J2704; J7030

== ENCOUNTER → 2019-10-19 14:50 | Outpatient (BNVA) | payer MEDICARE, SELFPAY | PROVIDERS: PCP Family Medicine; Visit Provider Internal Medicine Cardiovascular Disease | DX: I50.33 Acute on chronic diastolic (congestive) heart failure (principal); Z79.01 Long term (current) use of anticoagulants; I25.10 Atherosclerotic heart disease of native coronary artery without angina pectoris | CPT/HCPCS: 80053; 83880; 85025 ==

== ENCOUNTER → 2019-11-01 08:17 | Outpatient (BNVA) | payer MEDICARE, OTHER, SELFPAY | PROVIDERS: PCP Family Medicine; Visit Provider Specialist | DX: Z47.1 Aftercare following joint replacement surgery (principal); Z96.641 Presence of right artificial hip joint; S72.001D Fracture of unspecified part of neck of right femur, subsequent encounter for closed fracture with routine healing; W18.09XD Striking against other object with subsequent fall, subsequent encounter | CPT/HCPCS: 73502 ==

== ENCOUNTER 2019-11-04 09:43 | Outpatient (RCR) | payer OTHER, MEDICARE, SELFPAY | END 2019-11-08 23:59 | disposition home or self-care (01) | LOC: SPT 09:43 | PROVIDERS: PCP Family Medicine; Visit Provider Specialist | DX: Z96.641 Presence of right artificial hip joint (principal) | CPT/HCPCS: 97161 ==

== ENCOUNTER 2019-11-09 06:00 | Outpatient (RCR) | payer OTHER, MEDICARE, SELFPAY | END 2019-12-08 23:59 | disposition home or self-care (01) | LOC: SPT 06:00 | PROVIDERS: PCP Family Medicine; Visit Provider Specialist | DX: Z47.1 Aftercare following joint replacement surgery (principal); Z96.641 Presence of right artificial hip joint | CPT/HCPCS: 97110 ==

== ENCOUNTER → 2019-11-25 10:41 | Outpatient (BNVA) | payer OTHER, SELFPAY | PROVIDERS: PCP Family Medicine; Visit Provider Specialist | DX: S72.001D Fracture of unspecified part of neck of right femur, subsequent encounter for closed fracture with routine healing (principal); W18.09XD Striking against other object with subsequent fall, subsequent encounter | CPT/HCPCS: 73502 ==

== ENCOUNTER 2019-11-30 10:10 | Emergency (ER) | payer OTHER, MEDICARE, SELFPAY ==
[2019-11-30 10:35] VITALS: BP 70/45; PULSE 86; RESP 14; TEMP 36.4; O2SAT 100; BMI 18.3
--- NOTE | 2019-11-30 11:07 | ECG_ITS ---
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 Measurements Intervals [place] Rate: 60 P: CO: -1 QRS: 268 QRSD: 184 T: 80 QT: 488 QTc: 491 Interpretive Statements ELECTRONIC VENTRICULAR PACEMAKER ABNORMAL RHYTHM ECG Compared to ECG 08/02/2019 19:25:43 Atrial-paced complex(es) or rhythm no longer present Electronically Signed On 11-30-2019 18:30:28 CDT by Donell Mcdonald M.D. [email or web address]
--- NOTE | 2019-11-30 11:08 | XRR_ITS ---
PROCEDURE INFORMATION: Exam: XR Chest, 1 View Exam date and time: 11/30/2019 11:09 AM Age: 74 years old Clinical indication: Other: Hypotension TECHNIQUE: Imaging protocol: XR of the chest Views: 1 view. COMPARISON: CR XR chest 1V portable [id number] 08/05/2019 5:08 AM FINDINGS: Tubes, catheters and devices: Permanent pacemaker. Lungs: Hyperinflation. No CHF or focal consolidation. Pleural space: No pleural effusion. No pneumothorax. Minimal right pleural thickening. Heart/Mediastinum: Unremarkable. No cardiomegaly. Diaphragm: Stable left hemidiaphragm elevation. Bones/joints: No acute findings. Multilevel thoracic and lumbar vertebroplasty. XR/XR chest 1V portable [id number] IMPRESSION: No acute findings.
[2019-11-30] MEDS: sodium chloride 0.9% 1,000 ML 999 ML IV (11:26)
[2019-11-30 11:29] LABS: Basophils # 0.1 10^3/uL (0.0-0.1); Eosinophils # 0.1 10^3/uL (0.0-0.8); Eosinophils % 1.4 %; Hematocrit 36.6 % (42.0-52.0); Hemoglobin 11.8 g/dL (11.7-16.6); Lymphocytes # 1.1 10^3/uL (0.8-4.8); Lymphocytes % 22.2 %; Mean Corpuscular HGB Conc 32.2 g/dL (30.0-36.0); Mean Corpuscular Volume 93.1 fL (80-94); Mean Platelet Volume 10.3 fL (7.4-10.4); Monocytes # 0.6 10^3/uL (0.2-0.9); Monocytes % 11.5 %; Neutrophils # 3.06 10^3/uL (1.8-7.7); Neutrophils % 63.1 %; Nucleated Red Blood Cells % 0 %; Platelet Count 200 10^3/cmm (130-400); Red Blood Count 3.93 10^6/uL (4.1-5.3); Red Cell Distribution Width 14.2 % (12.1-15.1); White Blood Count 4.9 10^3/uL (4.0-10.0)
[2019-11-30 11:47] LABS: Add Urine Microscopic? NO
[2019-11-30 11:47] LABS: Lactic Sepsis W/Reflex 2.3 mmol/L (0.5-2.2)
--- NOTE | 2019-11-30 11:49 | ED_ITS ---
HPI - General Adult General: Chief complaint: General Medical Stated complaint: LOW BP Time Seen by Provider: 11/30/19 11:07 History of Present Illness: HPI narrative: This patient is a 74-year-old gentleman who presents today with low blood pressure. He was going to physical therapy for rehab after a hip fracture and hip replacement and was noted to have a low blood pressure there of 70/40. He said he has been having dizziness in the morning. He said it was only this morning that it happened but he told the triage nurse that it had been for several days. He has a history of atrial fibrillation. He is on digoxin, Brilinta, furosemide. His tells me that he is not been eating and has been losing weight. He also has a history of hypothyroidism. His doctor is Dr. Mcdonald. Associated symptoms: Reports malaise; Deny chest pain, dyspnea, headache(s), nausea, rash or vomiting Review of Systems General: Reports: 10 or more systems reviewed and unremarkable except in HPI and below Const: Reports: change in weight (Weight loss), fatigue and malaise; Denies: fever(s) or chills Eyes: Denies: change in vision ENMT: Denies: odynophagia Card: Denies: chest pain or swelling of feet/ankles Resp: Denies: dyspnea, productive cough or non-productive cough GI: Denies: abdominal pain, nausea or vomiting : Denies: flank pain Musc: Denies: neck pain or back pain Skin/Breast: Denies: rash Neuro: Reports: weakness in extremities, difficulty walking and dizziness; Denies: headache(s) or numbness in extremities Endo: Reports: tired all the time Mohit/Lymph: Denies: easy bruising or easy bleeding PFS ED PFSH: Medical History Atrial fibrillation Bradycardia COPD (chronic obstructive pulmonary disease) Coronary artery disease Diastolic heart failure Dyslipidemia Esophageal stricture Gastric ulcer Exploratory laparotomy after perforation Hypotension (arterial) Hypothyroidism Lupus (systemic lupus erythematosus) Rheumatoid arthritis/lupus Orthostasis Syncope Secondary to polypharmacy in the past Surgical History H/O colonoscopy 5 yrs ago H/O esophagogastroduodenoscopy (09/28/19) schatzki ring, dilated to 18mm H/O hernia repair H/O knee surgery History of appendectomy History of cardiac cath No significant stenotic lesions were identified, 05/2017 History of right hip replacement Previous back surgery S/P coronary artery stent placement S/P dilatation of esophageal stricture 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 Family History Brother Cancer Prostate cancer Father CAD (coronary artery disease) Mother CAD (coronary artery disease) Denies family history of Anesthesia complication Bleeding disorder Social History Smoking and tobacco status: former smoker Alcohol intake: current Alcohol type: beer Household members: family Housing: House Marital status: Current occupational status: retired History of recent travel: No Physical Exam Const: COMMON NORMALS: no acute distress, patient oriented x3, no limitations and alert GENERAL APPEARANCE: cooperative, comfortable and ill appearing NUTRITIONAL APPEARANCE: underweight ORIENTATION/CONSCIOUSNESS: Yes awake, Yes oriented to person, Yes oriented to place and Yes oriented to time HENMT: HEAD & SCALP: normal to inspection FACE & SINUS: normal facial exam Eye: GENERAL EYE: appearance normal, both eyes and all related structures Neck/C-Spine: COMMON NORMALS: supple, no meningeal signs and no JVD Chest: COMMONS NORMALS: normal inspection of the chest Resp: COMMON NORMALS: normal respiratory effort, No use of accessory muscles and clear to auscultation bilaterally AUSCULTATION: clear to auscultation bilaterally Cardio: COMMON NORMALS: no JVD, regular rate, regular rhythm and No murmurs present (Cardio) RATE: regular rate RHYTHM: regular rhythm GI: COMMON NORMALS: Normal to inspection, nondistended, normoactive bowel sounds present, Soft to palpation and non-tender INSPECTION: Yes normal to inspection AUSCULTATION: Yes normoactive bowel sounds PALPATION: Yes Soft to palpation Back/Pelvis: COMMON NORMALS: thoracic and lumbar spine normal to inspection Extremity: COMMON NORMALS: normal to inspection Neuro: COMMON NORMALS: patient oriented x3, moves all extremities, no focal motor deficits and no sensory deficits noted SENSORIUM/ORIENTATION: Yes alert, Yes oriented to person, Yes oriented to place and Yes oriented to time MENINGEAL SIGNS: Yes no meningeal signs Psych: COMMON NORMALS: mental status grossly normal, cooperative and normal affect Skin: COMMON NORMALS: no rashes or lesions noted and turgor normal GENERAL SKIN EXAM: no rashes or lesions noted and turgor normal Course ED course: Patient presents from physical therapy with a very low blood pressure. He was recently started on digoxin and his level is a bit high today although I am not sure the timing of when that was drawn and when he took his last dose. He felt better after some fluids and his orthostasis resolved. I suggested that we admit him to the hospital for further evaluation and to make sure he improves and stays improved. I am concerned about him falling. He does not want stay in the hospital and his is comfortable taking him home. He has good follow-up with Dr. Mcdonald and his PCP. Vital Signs: Vital signs: Vital Signs Temperature 97.6 F 11/30/19 10:35 Pulse Rate 64 11/30/19 14:32 Respiratory Rate 23 H 11/30/19 14:32 Blood Pressure 134/75 11/30/19 14:32 Pulse Oximetry 98 11/30/19 14:32 MDM - General Adult Lab Data: Labs: Lab Results 11/30/19 11/30/19 11/30/19 Range/Units 11:18 11:18 11:18 WBC 4.9 (4.0-10.0) 10^3/ uL RBC 3.93 L (4.1-5.3) 10^6/u L Hgb 11.8 (11.7-16.6) g/dL Hct 36.6 L (42.0-52.0) % MCV 93.1 (80-94) fL MCH 30.0 (28.0-34.0) pg MCHC 32.2 (30.0-36.0) g/dL RDW 14.2 (12.1-15.1) % Plt Count 200 (130-400) 10^3/c mm MPV 10.3 (7.4-10.4) fL Neut % (Auto) 63.1 % Lymph % (Auto) 22.2 % [place] % (Auto) 11.5 % Eos % (Auto) 1.4 % Baso % (Auto) 1.0 % Neut # (Auto) 3.06 (1.8-7.7) 10^3/u L Lymph # (Auto) 1.1 (0.8-4.8) 10^3/u L [place] # (Auto) 0.6 (0.2-0.9) 10^3/u L Eos # (Auto) 0.1 (0.0-0.8) 10^3/u L Baso # (Auto) 0.1 (0.0-0.1) 10^3/u L Nucleated RBC % (a uto) 0 % Nucleated RBCs # 0.0 /100WBC Sodium 138 (136-145) mmol/L Potassium 4.2 (3.5-5.1) mmol/L Chloride 100 (98-107) mmol/L Carbon Dioxide 27 (22-29) mmol/L Anion Gap 15.2 (5-19) BUN 21 (8-23) mg/dL Creatinine 1.2 (0.7-1.2) mg/dL GFR Calculation Not Reportable Glucose 96 (65-115) mg/dL Calculated Osmolal ity 289 (285-295) mOsm/k g Lactic Acid (0.5-2.2) mmol/L Lactic Acid (Sepsi s) (0.5-2.2) mmol/L Calcium 9.5 (8.5-10.5) mg/dL Total Bilirubin 0.5 (0.15-1.2) mg/dL AST 29 (0-40) U/L ALT 25 (0-41) U/L Alkaline Phosphata se 175 H (40-130) IU/L Troponin T Baselin e 54 H (0-15) ng/L Troponin T 120 Min lummi (0-15) ng/L Delta Troponin T (0-10) ABS# NT-Pro-B Natriuret Pep 2997 H (0-125) pg/mL Total Protein 7.7 (6.6-8.7) g/dL Albumin 3.9 (3.5-5.2) g/dL Globulin 3.8 (1.3-4.6) g/dL Urine Color (Yellow) Urine Appearance (CLEAR) Urine pH (5-7) Ur Specific Gravit y (1.005-1.030) Urine Protein (Negative) Urine Glucose (UA) (Normal) Urine Ketones (Negative) Urine Blood (Negative) Urine Nitrate (Negative) Urine Bilirubin (Negative) Urine Urobilinogen (Negative) mg/dL Ur Leukocyte Flori ase (Negative) Digoxin (0.6-1.2) ng/mL 11/30/19 11/30/19 11/30/19 Range/Units 11:18 11:40 12:19 WBC (4.0-10.0) 10^3/ uL RBC (4.1-5.3) 10^6/u L Hgb (11.7-16.6) g/dL Hct (42.0-52.0) % MCV (80-94) fL MCH (28.0-34.0) pg MCHC (30.0-36.0) g/dL RDW (12.1-15.1) % Plt Count (130-400) 10^3/c mm MPV (7.4-10.4) fL Neut % (Auto) % Lymph % (Auto) % [place] % (Auto) % Eos % (Auto) % Baso % (Auto) % Neut # (Auto) (1.8-7.7) 10^3/u L Lymph # (Auto) (0.8-4.8) 10^3/u L [place] # (Auto) (0.2-0.9) 10^3/u L Eos # (Auto) (0.0-0.8) 10^3/u L Baso # (Auto) (0.0-0.1) 10^3/u L Nucleated RBC % (a uto) % Nucleated RBCs # /100WBC Sodium (136-145) mmol/L Potassium (3.5-5.1) mmol/L Chloride (98-107) mmol/L Carbon Dioxide (22-29) mmol/L Anion Gap (5-19) BUN (8-23) mg/dL Creatinine (0.7-1.2) mg/dL GFR Calculation Glucose (65-115) mg/dL Calculated Osmolal ity (285-295) mOsm/k g Lactic Acid 2.3 H (0.5-2.2) mmol/L Lactic Acid (Sepsi s) (0.5-2.2) mmol/L Calcium (8.5-10.5) mg/dL Total Bilirubin (0.15-1.2) mg/dL AST (0-40) U/L ALT (0-41) U/L Alkaline Phosphata se (40-130) IU/L Troponin T Baselin e (0-15) ng/L Troponin T 120 Min lummi (0-15) ng/L Delta Troponin T (0-10) ABS# NT-Pro-B Natriuret Pep (0-125) pg/mL Total Protein (6.6-8.7) g/dL Albumin (3.5-5.2) g/dL Globulin (1.3-4.6) g/dL Urine Color Straw (Yellow) Urine Appearance Clear (CLEAR) Urine pH 7.0 (5-7) Ur Specific Gravit y 1.010 (1.005-1.030) Urine Protein Neg (Negative) Urine Glucose (UA) Norm (Normal) Urine Ketones Negative (Negative) Urine Blood Neg (Negative) Urine Nitrate Negative (Negative) Urine Bilirubin Neg (Negative) Urine Urobilinogen Norm (Negative) mg/dL Ur Leukocyte Flori ase Negative (Negative) Digoxin 1.8 H (0.6-1.2) ng/mL 11/30/19 11/30/19 Range/Units 13:15 13:15 WBC (4.0-10.0) 10^3/ uL RBC (4.1-5.3) 10^6/u L Hgb (11.7-16.6) g/dL Hct (42.0-52.0) % MCV (80-94) fL MCH (28.0-34.0) pg MCHC (30.0-36.0) g/dL RDW (12.1-15.1) % Plt Count (130-400) 10^3/c mm MPV (7.4-10.4) fL Neut % (Auto) % Lymph % (Auto) % [place] % (Auto) % Eos % (Auto) % Baso % (Auto) % Neut # (Auto) (1.8-7.7) 10^3/u L Lymph # (Auto) (0.8-4.8) 10^3/u L [place] # (Auto) (0.2-0.9) 10^3/u L Eos # (Auto) (0.0-0.8) 10^3/u L Baso # (Auto) (0.0-0.1) 10^3/u L Nucleated RBC % (a uto) % Nucleated RBCs # /100WBC Sodium (136-145) mmol/L Potassium (3.5-5.1) mmol/L Chloride (98-107) mmol/L Carbon Dioxide (22-29) mmol/L Anion Gap (5-19) BUN (8-23) mg/dL Creatinine (0.7-1.2) mg/dL GFR Calculation Glucose (65-115) mg/dL Calculated Osmolal ity (285-295) mOsm/k g Lactic Acid (0.5-2.2) mmol/L Lactic Acid (Sepsi s) 1.6 (0.5-2.2) mmol/L Calcium (8.5-10.5) mg/dL Total Bilirubin (0.15-1.2) mg/dL AST (0-40) U/L ALT (0-41) U/L Alkaline Phosphata se (40-130) IU/L Troponin T Baselin e (0-15) ng/L Troponin T 120 Min lummi 51.87 H (0-15) ng/L Delta Troponin T -2.13 L (0-10) ABS# NT-Pro-B Natriuret Pep (0-125) pg/mL Total Protein (6.6-8.7) g/dL Albumin (3.5-5.2) g/dL Globulin (1.3-4.6) g/dL Urine Color (Yellow) Urine Appearance (CLEAR) Urine pH (5-7) Ur Specific Gravit y (1.005-1.030) Urine Protein (Negative) Urine Glucose (UA) (Normal) Urine Ketones (Negative) Urine Blood (Negative) Urine Nitrate (Negative) Urine Bilirubin (Negative) Urine Urobilinogen (Negative) mg/dL Ur Leukocyte Flori ase (Negative) Digoxin (0.6-1.2) ng/mL Discharge Plan Discharge Patient Disposition: Home Clinical Impression: Orthostatic hypotension, Elevated digoxin level Condition: Stable Prescriptions: No Action gabapentin 100 mg PO TID PRN (Reason: Pain) RF: 0 furosemide 20 mg tablet 20 mg PO QAM Qty: 90 RF: 3 digoxin 125 mcg (0.125 mg) tablet 125 mcg PO DAILY Qty: 30 RF: 3 cholecalciferol (vitamin D3) 1,250 mcg (50,000 unit) capsule 50,000 unit PO Q30D RF: 0 atorvastatin 10 mg Tablet 10 mg PO DAILY Qty: 0 RF: 0 clonazepam [Klonopin] 0.5 mg Tablet 1 mg PO BID RF: 0 leflunomide 10 mg Tablet 5 mg PO DAILY RF: 0 pantoprazole 40 mg Tablet,Delayed Release (Dr/Ec) 40 mg PO DAILY RF: 0 levothyroxine 100 mcg Capsule 100 mcg PO DAILY RF: 0 Brilinta 90 mg Tablet 90 mg PO DAILY RF: 0 Stiolto Respimat 2.5-2.5 mcg/actuation Mist 1 puff inhalation BID RF: 0 magnesium oxide 400 mg magnesium Tablet 400 mg PO DAILY RF: 0 alendronate 70 mg tablet 70 mg PO Q7D RF: 0 ProAir HFA 90 mcg/actuation Hfa Aerosol Inhaler 2 puff INHALATION QID PRN (Reason: Shortness Of Breath) RF: 0 Flonase Allergy Relief 50 mcg/actuation [place],Suspension 2 spray INTRANASAL DAILY RF: 0 potassium chloride 20 mEq Tablet Extended Release 20 meq PO DAILY RF: 0 fiber 1 tab PO DAILY RF: 0 citalopram 20 mg tablet 40 mg PO DAILY RF: 0 Discharge Orders: Discharge Order (Routine); Ordered 11/30/19 Ordered By: Danielle Arzola Referrals: Jose Manuel Oliver MD [Primary Care Provider] - Discharge Diet: Usual diet Discharge Activity: Resume usual activity Patient Instructions: Hypotension (ED) Activity Restrictions/Additional Instructions: Be extremely careful when ambulating. If you are starting to get dizzy you must sit down or lay down until the dizziness passes. Stop taking the digoxin until you have a chance to talk to Dr. Mcdonald about it. Follow-up with either Dr. Mcdonald or Dr. Oliver in the next few days to let them know how you are doing. Return to the emergency department if any new or worse symptoms. 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
[2019-11-30 11:50] VITALS: BP 121/69; PULSE 60; RESP 14; O2SAT 100
[2019-11-30 11:50] LABS: Bilirubin Urine Neg (Negative); Blood Urine Neg (Negative); Glucose Urine UA Norm (Normal); Ketones Urine Negative (Negative); Leukocyte Esterase Urine Negative (Negative); Nitrate Urine Negative (Negative); Protein Urine Neg (Negative); Urine Appearance Clear (CLEAR); Urine Color Straw (Yellow); Urobilinogen Urine Norm (Negative)
[2019-11-30 11:56] LABS: Troponin(5th) Baseline 54 ng/L (0-15)
[2019-11-30 12:03] LABS: Alanine Aminotransferase 25 U/L (0-41); Albumin Level 3.9 g/dL (3.5-5.2); Alkaline Phosphatase 175 IU/L (40-130); Anion Gap 15.2 (5-19); Aspartate Amino Transferase 29 U/L (0-40); Blood Urea Nitrogen 21 mg/dL (8-23); Calcium 9.5 mg/dL (8.5-10.5); Carbon Dioxide 27 mmol/L (22-29); Chloride 100 mmol/L (98-107); Globulin 3.8 g/dL (1.3-4.6); Glucose 96 mg/dL (65-115); NT Pro B Type Natriuretic Pept 2997 pg/mL (0-125); Osmolality Calculated 289 mOsm/kg (285-295); Potassium 4.2 mmol/L (3.5-5.1); Sodium 138 mmol/L (136-145); Total Bilirubin 0.5 mg/dL (0.15-1.2); Total Protein 7.7 g/dL (6.6-8.7)
[2019-11-30 12:30] VITALS: BP 120/65; PULSE 68; RESP 20; O2SAT 98
[2019-11-30 13:09] LABS: Reflex Lactate Order REFLEX LACTIC ORDERD
[2019-11-30 13:14] LABS: Digoxin 1.8 ng/mL (0.6-1.2)
[2019-11-30 13:28] VITALS: BP 118/64; BP 80/54; BP 86/55; PULSE 64; PULSE 69; PULSE 72
[2019-11-30 13:30] VITALS: BP 134/75; PULSE 64; RESP 23; O2SAT 98
[2019-11-30 13:46] LABS: Lactic Acid level (Lactate) 1.6 mmol/L (0.5-2.2)
[2019-11-30 13:48] LABS: Troponin 5 2HR 51.87 ng/L (0-15); Troponin 5 2HR Delta -2.13 ABS# (0-10)
[2019-11-30 14:32] VITALS: BP 134/75; PULSE 64; RESP 23; O2SAT 98
== END 2019-11-30 14:33 | disposition home or self-care (01) ==
PROVIDERS: Emergency Provider Emergency Medicine; PCP Family Medicine
DX: I95.1 Orthostatic hypotension (principal); R79.89 Other specified abnormal findings of blood chemistry; Z87.891 Personal history of nicotine dependence; I48.91 Unspecified atrial fibrillation; J44.9 Chronic obstructive pulmonary disease, unspecified; I25.10 Atherosclerotic heart disease of native coronary artery without angina pectoris; I50.30 Unspecified diastolic (congestive) heart failure; E78.5 Hyperlipidemia, unspecified; M32.9 Systemic lupus erythematosus, unspecified; Z95.0 Presence of cardiac pacemaker
CPT/HCPCS: 12345; 36415; 71045; 80053; 80162; 81003; 83605; 83880; 84484; 85025; 93005; 96360; 99284; J7030

== ENCOUNTER 2019-12-04 15:39 | Inpatient (IN) | payer OTHER, MEDICARE, SELFPAY ==
[2019-12-04 15:45] VITALS: BP 86/54; PULSE 67; RESP 18; TEMP 37.1; O2SAT 94; BMI 18.0
[2019-12-04 17:40] VITALS: O2SAT 97
--- NOTE | 2019-12-04 17:49 | ECG_ITS ---
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 Measurements Intervals [place] Rate: 66 P: 89 MA: 242 QRS: -68 QRSD: 119 T: 255 QT: 458 QTc: 483 Interpretive Statements ELECTRONIC VENTRICULAR PACEMAKER ABNORMAL RHYTHM ECG Compared to ECG 11/30/2019 12:04:52 No significant changes Electronically Signed On 12-05-2019 19:09:07 CDT by Donell Mcdonald M.D. [id number]
[2019-12-04 18:10] VITALS: BP 102/50; PULSE 86; RESP 17; O2SAT 95
[2019-12-04 18:11] LABS: ABG PCO2 23.8 mmHg (35-45); Arterial Blood Gas Hematocrit 30.5 % (42-52); Base Excess ABG 0.8 mmol/L (-2.0-2.0); Blood Gas Allen Test Pos; Blood Gas Operator Identificat BROMA; Blood Gas Sample Site Radial, left; Blood Gas Sample Type Arterial; HCO3 ABG 21.9 mmol/L (22-26); Oxygen Device ROOM AIR; PO2 ABG 92.6 mmHg (80.0-100.0)
--- NOTE | 2019-12-04 18:23 | W.ED.FEVER ---
Documented by User: Johny Longo DO 12/05/19 17:47 HPI - Fever General: Chief Complaint: Fever Stated Complaint: fever Time Seen by Provider: 12/04/19 17:35 History of Present Illness: HPI Narrative: 74-year-old male comes in complaining of fever for the last 2 days. He had a T-max up to 102.5 measured at home. He denies any nausea vomiting or diarrhea denies any chest pain he has a lot of myalgias and is been somewhat short of breath he is normally on oxygen at night only for his COPD restate uses 2 L/min by nasal cannula. He has not had any change in cough. He was seen 4 days ago for a generalized weakness and near syncopal episode and dizziness after physical therapy and discharged home. MD elicited complaint: fever Pertinent past history: other (COPD) Onset (ago): day(s) (2) Exacerbating factors: exertion Relieving factors: rest Associated symptoms: Reports chills, myalgias, short of breath and stiffness; Deny abdominal pain, flank pain, chest pain, confusion, cough, diarrhea, dysuria, extremity pain, headache(s), nasal congestion, nausea, night sweats, rash, rhinorrhea, sinus pain, sore throat, vaginal discharge, vomiting or weight loss Treatments prior to arrival fever: none Review of Systems Const: Reports: chills; Denies: night sweats ENMT: Denies: nasal congestion or sinus pain Card: Denies: chest pain Resp: Denies: dyspnea, productive cough or non-productive cough GI: Denies: abdominal pain, nausea, vomiting or diarrhea : Denies: flank pain or dysuria Musc: Denies: extremity pain Skin/Breast: Denies: rash or pruritus Neuro: Denies: headache(s) or confusion PFSH ED PFSH: Medical History Atrial fibrillation Not on anticoagulation secondary to blood loss anemia after surgery, with easy bruising of skin due to lupus Bradycardia COPD (chronic obstructive pulmonary disease) Coronary artery disease Diastolic heart failure Dyslipidemia Esophageal stricture Gastric ulcer Exploratory laparotomy after perforation Hypotension (arterial) Hypothyroidism Lupus (systemic lupus erythematosus) Rheumatoid arthritis/lupus Orthostasis Syncope Secondary to polypharmacy in the past Surgical History H/O colonoscopy 5 yrs ago H/O esophagogastroduodenoscopy (09/28/19) schatzki ring, dilated to 18mm H/O hernia repair H/O knee surgery History of appendectomy History of cardiac cath No significant stenotic lesions were identified, 05/2017 History of right hip replacement Previous back surgery S/P coronary artery stent placement S/P dilatation of esophageal stricture 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 Family History Brother Cancer Prostate cancer Father CAD (coronary artery disease) Mother CAD (coronary artery disease) Denies family history of Anesthesia complication Bleeding disorder Social History Smoking and tobacco status: former smoker Alcohol intake: current Alcohol type: beer Household members: family Housing: House Marital status: Current occupational status: retired History of recent travel: No Physical Exam Const: COMMON NORMALS: no acute distress GENERAL APPEARANCE: cooperative and comfortable HENMT: COMMON NORMALS: normocephalic and atraumatic HEAD & SCALP: normocephalic and atraumatic Eye: COMMON NORMALS: Equal, round and reactive pupils present, EOMs intact bilaterally, conjunctivae normal and no scleral icterus CONJUNCTIVA: Yes conjunctivae normal PUPIL: Yes Equal, round and reactive pupils present Neck/C-Spine: COMMON NORMALS: full ROM, no lymphadenopathy, supple and no JVD Lymph: LYMPHATIC: no lymphadenopathy noted and no lymphedema noted Resp: COMMON NORMALS: normal respiratory effort, No retractions and No use of accessory muscles AUSCULTATION: diminished lung sounds Cardio: COMMON NORMALS: no JVD, regular rate, regular rhythm and No murmurs present (Cardio) RATE: regular rate RHYTHM: regular rhythm GI: COMMON NORMALS: Soft to palpation and No hepatosplenomegaly present AUSCULTATION: Yes normoactive bowel sounds PALPATION: Yes Soft to palpation, No Tenderness to palpation present (GI), No Guarding due to palpation present (GI) and Yes No hepatosplenomegaly present Extremity: COMMON NORMALS: normal to inspection, capillary refill normal, no clubbing, cyanosis or edema, no calf tenderness and no pedal edema Skin: COMMON NORMALS: no rashes or lesions noted GENERAL SKIN EXAM: no rashes or lesions noted Course Vital Signs: Vital signs: Vital Signs Temperature 98.4 F 12/05/19 16:00 Pulse Rate 82 12/05/19 16:00 Respiratory Rate 17 12/05/19 16:00 Blood Pressure 124/75 12/05/19 16:00 Pulse Oximetry 98 12/05/19 16:00 MDM - Fever MDM Narrative: Medical decision making narrative: Care turned over to Dr. Francis at change of shift. Lab Data: Labs: Lab Results 12/04/19 12/04/19 12/04/19 Range/Units 18:00 18:00 18:00 WBC 15.0 H (4.0-10.0) 10^3/ uL RBC 3.30 L (4.1-5.3) 10^6/u L Hgb 10.0 L (11.7-16.6) g/dL Hct 30.4 L (42.0-52.0) % MCV 92.1 (80-94) fL MCH 30.3 (28.0-34.0) pg MCHC 32.9 (30.0-36.0) g/dL RDW 14.4 (12.1-15.1) % Plt Count 160 (130-400) 10^3/c mm MPV 11.4 H (7.4-10.4) fL Neut % (Auto) 84.7 % Lymph % (Auto) 5.0 % [place] % (Auto) 7.1 % Eos % (Auto) 0.8 % Baso % (Auto) 0.3 % Neut # (Auto) 12.73 H (1.8-7.7) 10^3/u L Lymph # (Auto) 0.8 (0.8-4.8) 10^3/u L [place] # (Auto) 1.1 H (0.2-0.9) 10^3/u L Eos # (Auto) 0.1 (0.0-0.8) 10^3/u L Baso # (Auto) 0.1 (0.0-0.1) 10^3/u L Nucleated RBC % (a uto) 0 % Nucleated RBCs # 0.0 /100WBC Fibrinogen 661 H (174-498) mg/dL D-Dimer 2.66 H (0-0.59) ug/mIFE U Specimen Type Arterial Sample Site Radial, left ABG pH 7.57 H* (7.35-7.45) ABG pCO2 23.8 L (35-45) mmHg ABG pO2 92.6 (80.0-100.0) mmH g ABG HCO3 21.9 L (22-26) mmol/L ABG Base Excess 0.8 (-2.0-2.0) mmol/ L Brady Test Pos Hematocrit 30.5 L (42-52) % O2 Delivery Device Room air Clinical Researcher ID Broma Sodium (136-145) mmol/L Potassium (3.5-5.1) mmol/L Chloride (98-107) mmol/L Carbon Dioxide (22-29) mmol/L Anion Gap (5-19) BUN (8-23) mg/dL Creatinine (0.7-1.2) mg/dL GFR Calculation Glucose (65-115) mg/dL Calculated Osmolal ity (285-295) mOsm/k g Lactic Acid (0.5-2.2) mmol/L Calcium (8.5-10.5) mg/dL Ferritin (30-400) ng/mL Total Bilirubin (0.15-1.2) mg/dL AST (0-40) U/L ALT (0-41) U/L Alkaline Phosphata se (40-130) IU/L Lactate Dehydrogen ase (135-225) U/L C-Reactive Protein (0.0-4.9) mg/L Total Protein (6.6-8.7) g/dL Albumin (3.5-5.2) g/dL Globulin (1.3-4.6) g/dL Urine Color (Yellow) Urine Appearance (CLEAR) Urine pH (5-7) Ur Specific Gravit y (1.005-1.030) Urine Protein (Negative) Urine Glucose (UA) (Normal) Urine Ketones (Negative) Urine Blood (Negative) Urine Nitrate (Negative) Urine Bilirubin (Negative) Urine Urobilinogen (Negative) mg/dL Ur Leukocyte Flori ase (Negative) Urine RBC (0-2) /hpf Urine WBC (0-5) /hpf Ur Squamous Epith Cells (0-5) /hpf Amorphous Sediment Urine Bacteria (NONE) /hpf Influenza Type A A g (Negative) Influenza Type B A g (Negative) SARS-CoV-2 Ag (Rap id) (Negative) 12/04/19 12/04/19 12/04/19 Range/Units 18:00 18:00 18:10 WBC (4.0-10.0) 10^3/ uL RBC (4.1-5.3) 10^6/u L Hgb (11.7-16.6) g/dL Hct (42.0-52.0) % MCV (80-94) fL MCH (28.0-34.0) pg MCHC (30.0-36.0) g/dL RDW (12.1-15.1) % Plt Count (130-400) 10^3/c mm MPV (7.4-10.4) fL Neut % (Auto) % Lymph % (Auto) % [place] % (Auto) % Eos % (Auto) % Baso % (Auto) % Neut # (Auto) (1.8-7.7) 10^3/u L Lymph # (Auto) (0.8-4.8) 10^3/u L [place] # (Auto) (0.2-0.9) 10^3/u L Eos # (Auto) (0.0-0.8) 10^3/u L Baso # (Auto) (0.0-0.1) 10^3/u L Nucleated RBC % (a uto) % Nucleated RBCs # /100WBC Fibrinogen (174-498) mg/dL D-Dimer (0-0.59) ug/mIFE U Specimen Type Sample Site ABG pH (7.35-7.45) ABG pCO2 (35-45) mmHg ABG pO2 (80.0-100.0) mmH g ABG HCO3 (22-26) mmol/L ABG Base Excess (-2.0-2.0) mmol/ L Brady Test Hematocrit (42-52) % O2 Delivery Device Clinical Researcher ID Sodium 130 L (136-145) mmol/L Potassium 4.4 (3.5-5.1) mmol/L Chloride 94 L (98-107) mmol/L Carbon Dioxide 25 (22-29) mmol/L Anion Gap 15.4 (5-19) BUN 30 H (8-23) mg/dL Creatinine 1.6 H (0.7-1.2) mg/dL GFR Calculation Not Reportable Glucose 86 (65-115) mg/dL Calculated Osmolal ity 275 L (285-295) mOsm/k g Lactic Acid 1.6 (0.5-2.2) mmol/L Calcium 8.6 (8.5-10.5) mg/dL Ferritin 955 H (30-400) ng/mL Total Bilirubin 1.0 (0.15-1.2) mg/dL AST 21 (0-40) U/L ALT 18 (0-41) U/L Alkaline Phosphata se 142 H (40-130) IU/L Lactate Dehydrogen ase 157 (135-225) U/L C-Reactive Protein 278.8 H (0.0-4.9) mg/L Total Protein 6.9 (6.6-8.7) g/dL Albumin 3.5 (3.5-5.2) g/dL Globulin 3.4 (1.3-4.6) g/dL Urine Color (Yellow) Urine Appearance (CLEAR) Urine pH (5-7) Ur Specific Gravit y (1.005-1.030) Urine Protein (Negative) Urine Glucose (UA) (Normal) Urine Ketones (Negative) Urine Blood (Negative) Urine Nitrate (Negative) Urine Bilirubin (Negative) Urine Urobilinogen (Negative) mg/dL Ur Leukocyte Flori ase (Negative) Urine RBC (0-2) /hpf Urine WBC (0-5) /hpf Ur Squamous Epith Cells (0-5) /hpf Amorphous Sediment Urine Bacteria (NONE) /hpf Influenza Type A A g (Negative) Influenza Type B A g (Negative) SARS-CoV-2 Ag (Rap id) Negative (Negative) 12/04/19 12/04/19 Range/Units 18:10 21:35 WBC (4.0-10.0) 10^3/ uL RBC (4.1-5.3) 10^6/u L Hgb (11.7-16.6) g/dL Hct (42.0-52.0) % MCV (80-94) fL MCH (28.0-34.0) pg MCHC (30.0-36.0) g/dL RDW (12.1-15.1) % Plt Count (130-400) 10^3/c mm MPV (7.4-10.4) fL Neut % (Auto) % Lymph % (Auto) % [place] % (Auto) % Eos % (Auto) % Baso % (Auto) % Neut # (Auto) (1.8-7.7) 10^3/u L Lymph # (Auto) (0.8-4.8) 10^3/u L [place] # (Auto) (0.2-0.9) 10^3/u L Eos # (Auto) (0.0-0.8) 10^3/u L Baso # (Auto) (0.0-0.1) 10^3/u L Nucleated RBC % (a uto) % Nucleated RBCs # /100WBC Fibrinogen (174-498) mg/dL D-Dimer (0-0.59) ug/mIFE U Specimen Type Sample Site ABG pH (7.35-7.45) ABG pCO2 (35-45) mmHg ABG pO2 (80.0-100.0) mmH g ABG HCO3 (22-26) mmol/L ABG Base Excess (-2.0-2.0) mmol/ L Brady Test Hematocrit (42-52) % O2 Delivery Device Clinical Researcher ID Sodium (136-145) mmol/L Potassium (3.5-5.1) mmol/L Chloride (98-107) mmol/L Carbon Dioxide (22-29) mmol/L Anion Gap (5-19) BUN (8-23) mg/dL Creatinine (0.7-1.2) mg/dL GFR Calculation Glucose (65-115) mg/dL Calculated Osmolal ity (285-295) mOsm/k g Lactic Acid (0.5-2.2) mmol/L Calcium (8.5-10.5) mg/dL Ferritin (30-400) ng/mL Total Bilirubin (0.15-1.2) mg/dL AST (0-40) U/L ALT (0-41) U/L Alkaline Phosphata se (40-130) IU/L Lactate Dehydrogen ase (135-225) U/L C-Reactive Protein (0.0-4.9) mg/L Total Protein (6.6-8.7) g/dL Albumin (3.5-5.2) g/dL Globulin (1.3-4.6) g/dL Urine Color Yellow (Yellow) Urine Appearance Sl cloudy A (CLEAR) Urine pH 6 (5-7) Ur Specific Gravit y 1.005 (1.005-1.030) Urine Protein 1+ H (Negative) Urine Glucose (UA) Norm (Normal) Urine Ketones Negative (Negative) Urine Blood 3+ H (Negative) Urine Nitrate Positive H (Negative) Urine Bilirubin Neg (Negative) Urine Urobilinogen Norm (Negative) mg/dL Ur Leukocyte Flori ase 2+ H (Negative) Urine RBC Too numerous to c nt H (0-2) /hpf Urine WBC Too numerous to c nt H (0-5) /hpf Ur Squamous Epith Cells 0-4 H (0-5) /hpf Amorphous Sediment Not Reportable Urine Bacteria 4+ H (NONE) /hpf Influenza Type A A g Negative (Negative) Influenza Type B A g Negative (Negative) SARS-CoV-2 Ag (Rap id) (Negative) Discharge Plan Discharge Patient Disposition: Admitted As Inpatient Admit Provider: Chas Jocye Clinical Impression: Urinary tract infection Qualifiers: Urinary tract infection type: acute cystitis Hematuria presence: with hematuria Qualified Code(s): N30.01 - Acute cystitis with hematuria Condition: Stable Referrals: [facility] [Outside] Discharge Date/Time: 12/05/19 01:42 Coding Level of Care Code ED Medical Education Manager for Chg Fwd Exam Comprehensive Documented by User: Jack Francis DO 12/05/19 00:47 HPI - Fever General: Chief Complaint: Fever Stated Complaint: fever Time Seen by Provider: 12/04/19 17:35 [facility] ED PFSH: Medical History Atrial fibrillation Not on anticoagulation secondary to blood loss anemia after surgery, with easy bruising of skin due to lupus Bradycardia COPD (chronic obstructive pulmonary disease) Coronary artery disease Diastolic heart failure Dyslipidemia Esophageal stricture Gastric ulcer Exploratory laparotomy after perforation Hypotension (arterial) Hypothyroidism Lupus (systemic lupus erythematosus) Rheumatoid arthritis/lupus Orthostasis Syncope Secondary to polypharmacy in the past Surgical History H/O colonoscopy 5 yrs ago H/O esophagogastroduodenoscopy (09/28/19) schatzki ring, dilated to 18mm H/O hernia repair H/O knee surgery History of appendectomy History of cardiac cath No significant stenotic lesions were identified, 05/2017 History of right hip replacement Previous back surgery S/P coronary artery stent placement S/P dilatation of esophageal stricture 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 Family History Brother Cancer Prostate cancer Father CAD (coronary artery disease) Mother CAD (coronary artery disease) Denies family history of Anesthesia complication Bleeding disorder Social History Smoking and tobacco status: former smoker Alcohol intake: current Alcohol type: beer Household members: family Housing: House Marital status: Current occupational status: retired History of recent travel: No Course Vital Signs: Vital signs: Vital Signs Temperature 98.4 F 12/05/19 16:00 Pulse Rate 82 12/05/19 16:00 Respiratory Rate 17 12/05/19 16:00 Blood Pressure 124/75 12/05/19 16:00 Pulse Oximetry 98 12/05/19 16:00 MDM - Fever MDM Narrative: Medical decision making narrative: 4-year-old male checked out to me by Dr. Longo at shift change. He presents with fever. He denies significant shortness of breath. He may or may not have had a cough. His exam is benign except for the fever. He did have a low blood pressure on arrival, that seemed to respond after an initial fluid bolus. His white blood cell count is 15. Sodium 130. BUN 30, creatinine 1.6 his chest x-ray did not reveal an infiltrate. His COVID screen, a rapid, is negative. He has a significant urinary tract infection with hematuria. CT of the abdomen shows marked wall thickening of the bladder consistent with cystitis. Lab Data: Labs: Lab Results 12/04/19 12/04/19 12/04/19 Range/Units 18:00 18:00 18:00 WBC 15.0 H (4.0-10.0) 10^3/ uL RBC 3.30 L (4.1-5.3) 10^6/u L Hgb 10.0 L (11.7-16.6) g/dL Hct 30.4 L (42.0-52.0) % MCV 92.1 (80-94) fL MCH 30.3 (28.0-34.0) pg MCHC 32.9 (30.0-36.0) g/dL RDW 14.4 (12.1-15.1) % Plt Count 160 (130-400) 10^3/c mm MPV 11.4 H (7.4-10.4) fL Neut % (Auto) 84.7 % Lymph % (Auto) 5.0 % [place] % (Auto) 7.1 % Eos % (Auto) 0.8 % Baso % (Auto) 0.3 % Neut # (Auto) 12.73 H (1.8-7.7) 10^3/u L Lymph # (Auto) 0.8 (0.8-4.8) 10^3/u L [place] # (Auto) 1.1 H (0.2-0.9) 10^3/u L Eos # (Auto) 0.1 (0.0-0.8) 10^3/u L Baso # (Auto) 0.1 (0.0-0.1) 10^3/u L Nucleated RBC % (a uto) 0 % Nucleated RBCs # 0.0 /100WBC Fibrinogen 661 H (174-498) mg/dL D-Dimer 2.66 H (0-0.59) ug/mIFE U Specimen Type Arterial Sample Site Radial, left ABG pH 7.57 H* (7.35-7.45) ABG pCO2 23.8 L (35-45) mmHg ABG pO2 92.6 (80.0-100.0) mmH g ABG HCO3 21.9 L (22-26) mmol/L ABG Base Excess 0.8 (-2.0-2.0) mmol/ L Brady Test Pos Hematocrit 30.5 L (42-52) % O2 Delivery Device Room air Clinical Researcher ID Broma Sodium (136-145) mmol/L Potassium (3.5-5.1) mmol/L Chloride (98-107) mmol/L Carbon Dioxide (22-29) mmol/L Anion Gap (5-19) BUN (8-23) mg/dL Creatinine (0.7-1.2) mg/dL GFR Calculation Glucose (65-115) mg/dL Calculated Osmolal ity (285-295) mOsm/k g Lactic Acid (0.5-2.2) mmol/L Calcium (8.5-10.5) mg/dL Ferritin (30-400) ng/mL Total Bilirubin (0.15-1.2) mg/dL AST (0-40) U/L ALT (0-41) U/L Alkaline Phosphata se (40-130) IU/L Lactate Dehydrogen ase (135-225) U/L C-Reactive Protein (0.0-4.9) mg/L Total Protein (6.6-8.7) g/dL Albumin (3.5-5.2) g/dL Globulin (1.3-4.6) g/dL Urine Color (Yellow) Urine Appearance (CLEAR) Urine pH (5-7) Ur Specific Gravit y (1.005-1.030) Urine Protein (Negative) Urine Glucose (UA) (Normal) Urine Ketones (Negative) Urine Blood (Negative) Urine Nitrate (Negative) Urine Bilirubin (Negative) Urine Urobilinogen (Negative) mg/dL Ur Leukocyte Flori ase (Negative) Urine RBC (0-2) /hpf Urine WBC (0-5) /hpf Ur Squamous Epith Cells (0-5) /hpf Amorphous Sediment Urine Bacteria (NONE) /hpf Influenza Type A A g (Negative) Influenza Type B A g (Negative) SARS-CoV-2 Ag (Rap id) (Negative) 12/04/19 12/04/19 12/04/19 Range/Units 18:00 18:00 18:10 WBC (4.0-10.0) 10^3/ uL RBC (4.1-5.3) 10^6/u L Hgb (11.7-16.6) g/dL Hct (42.0-52.0) % MCV (80-94) fL MCH (28.0-34.0) pg MCHC (30.0-36.0) g/dL RDW (12.1-15.1) % Plt Count (130-400) 10^3/c mm MPV (7.4-10.4) fL Neut % (Auto) % Lymph % (Auto) % [place] % (Auto) % Eos % (Auto) % Baso % (Auto) % Neut # (Auto) (1.8-7.7) 10^3/u L Lymph # (Auto) (0.8-4.8) 10^3/u L [place] # (Auto) (0.2-0.9) 10^3/u L Eos # (Auto) (0.0-0.8) 10^3/u L Baso # (Auto) (0.0-0.1) 10^3/u L Nucleated RBC % (a uto) % Nucleated RBCs # /100WBC Fibrinogen (174-498) mg/dL D-Dimer (0-0.59) ug/mIFE U Specimen Type Sample Site ABG pH (7.35-7.45) ABG pCO2 (35-45) mmHg ABG pO2 (80.0-100.0) mmH g ABG HCO3 (22-26) mmol/L ABG Base Excess (-2.0-2.0) mmol/ L Brady Test Hematocrit (42-52) % O2 Delivery Device Clinical Researcher ID Sodium 130 L (136-145) mmol/L Potassium 4.4 (3.5-5.1) mmol/L Chloride 94 L (98-107) mmol/L Carbon Dioxide 25 (22-29) mmol/L Anion Gap 15.4 (5-19) BUN 30 H (8-23) mg/dL Creatinine 1.6 H (0.7-1.2) mg/dL GFR Calculation Not Reportable Glucose 86 (65-115) mg/dL Calculated Osmolal ity 275 L (285-295) mOsm/k g Lactic Acid 1.6 (0.5-2.2) mmol/L Calcium 8.6 (8.5-10.5) mg/dL Ferritin 955 H (30-400) ng/mL Total Bilirubin 1.0 (0.15-1.2) mg/dL AST 21 (0-40) U/L ALT 18 (0-41) U/L Alkaline Phosphata se 142 H (40-130) IU/L Lactate Dehydrogen ase 157 (135-225) U/L C-Reactive Protein 278.8 H (0.0-4.9) mg/L Total Protein 6.9 (6.6-8.7) g/dL Albumin 3.5 (3.5-5.2) g/dL Globulin 3.4 (1.3-4.6) g/dL Urine Color (Yellow) Urine Appearance (CLEAR) Urine pH (5-7) Ur Specific Gravit y (1.005-1.030) Urine Protein (Negative) Urine Glucose (UA) (Normal) Urine Ketones (Negative) Urine Blood (Negative) Urine Nitrate (Negative) Urine Bilirubin (Negative) Urine Urobilinogen (Negative) mg/dL Ur Leukocyte Flori ase (Negative) Urine RBC (0-2) /hpf Urine WBC (0-5) /hpf Ur Squamous Epith Cells (0-5) /hpf Amorphous Sediment Urine Bacteria (NONE) /hpf Influenza Type A A g (Negative) Influenza Type B A g (Negative) SARS-CoV-2 Ag (Rap id) Negative (Negative) 12/04/19 12/04/19 Range/Units 18:10 21:35 WBC (4.0-10.0) 10^3/ uL RBC (4.1-5.3) 10^6/u L Hgb (11.7-16.6) g/dL Hct (42.0-52.0) % MCV (80-94) fL MCH (28.0-34.0) pg MCHC (30.0-36.0) g/dL RDW (12.1-15.1) % Plt Count (130-400) 10^3/c mm MPV (7.4-10.4) fL Neut % (Auto) % Lymph % (Auto) % [place] % (Auto) % Eos % (Auto) % Baso % (Auto) % Neut # (Auto) (1.8-7.7) 10^3/u L Lymph # (Auto) (0.8-4.8) 10^3/u L [place] # (Auto) (0.2-0.9) 10^3/u L Eos # (Auto) (0.0-0.8) 10^3/u L Baso # (Auto) (0.0-0.1) 10^3/u L Nucleated RBC % (a uto) % Nucleated RBCs # /100WBC Fibrinogen (174-498) mg/dL D-Dimer (0-0.59) ug/mIFE U Specimen Type Sample Site ABG pH (7.35-7.45) ABG pCO2 (35-45) mmHg ABG pO2 (80.0-100.0) mmH g ABG HCO3 (22-26) mmol/L ABG Base Excess (-2.0-2.0) mmol/ L Brady Test Hematocrit (42-52) % O2 Delivery Device Clinical Researcher ID Sodium (136-145) mmol/L Potassium (3.5-5.1) mmol/L Chloride (98-107) mmol/L Carbon Dioxide (22-29) mmol/L Anion Gap (5-19) BUN (8-23) mg/dL Creatinine (0.7-1.2) mg/dL GFR Calculation Glucose (65-115) mg/dL Calculated Osmolal ity (285-295) mOsm/k g Lactic Acid (0.5-2.2) mmol/L Calcium (8.5-10.5) mg/dL Ferritin (30-400) ng/mL Total Bilirubin (0.15-1.2) mg/dL AST (0-40) U/L ALT (0-41) U/L Alkaline Phosphata se (40-130) IU/L Lactate Dehydrogen ase (135-225) U/L C-Reactive Protein (0.0-4.9) mg/L Total Protein (6.6-8.7) g/dL Albumin (3.5-5.2) g/dL Globulin (1.3-4.6) g/dL Urine Color Yellow (Yellow) Urine Appearance Sl cloudy A (CLEAR) Urine pH 6 (5-7) Ur Specific Gravit y 1.005 (1.005-1.030) Urine Protein 1+ H (Negative) Urine Glucose (UA) Norm (Normal) Urine Ketones Negative (Negative) Urine Blood 3+ H (Negative) Urine Nitrate Positive H (Negative) Urine Bilirubin Neg (Negative) Urine Urobilinogen Norm (Negative) mg/dL Ur Leukocyte Flori ase 2+ H (Negative) Urine RBC Too numerous to c nt H (0-2) /hpf Urine WBC Too numerous to c nt H (0-5) /hpf Ur Squamous Epith Cells 0-4 H (0-5) /hpf Amorphous Sediment Not Reportable Urine Bacteria 4+ H (NONE) /hpf Influenza Type A A g Negative (Negative) Influenza Type B A g Negative (Negative) SARS-CoV-2 Ag (Rap id) (Negative) Discharge Plan Discharge Patient Disposition: Admitted As Inpatient Admit Provider: Chas Joyce Clinical Impression: Urinary tract infection Qualifiers: Urinary tract infection type: acute cystitis Hematuria presence: with hematuria Qualified Code(s): N30.01 - Acute cystitis with hematuria Condition: Stable Referrals: [facility] [Outside] Discharge Date/Time: 12/05/19 01:42 Coding Level of Care Code ED Medical Education Manager for Chg Fwd Exam Comprehensive
[2019-12-04 18:32] LABS: Basophils # 0.1 10^3/uL (0.0-0.1); Basophils % 0.3 %; Eosinophils # 0.1 10^3/uL (0.0-0.8); Eosinophils % 0.8 %; Hematocrit 30.4 % (42.0-52.0); Lymphocytes # 0.8 10^3/uL (0.8-4.8); Mean Corpuscular HGB Conc 32.9 g/dL (30.0-36.0); Mean Corpuscular Hemoglobin 30.3 pg (28.0-34.0); Mean Corpuscular Volume 92.1 fL (80-94); Mean Platelet Volume 11.4 fL (7.4-10.4); Monocytes # 1.1 10^3/uL (0.2-0.9); Monocytes % 7.1 %; Neutrophils # 12.73 10^3/uL (1.8-7.7); Neutrophils % 84.7 %; Nucleated Red Blood Cells % 0 %; Platelet Count 160 10^3/cmm (130-400); Red Cell Distribution Width 14.4 % (12.1-15.1)
[2019-12-04 18:42] LABS: ABG PH Result 7.57 (7.35-7.45)
[2019-12-04 18:45] LABS: Fibrinogen 661 mg/dL (174-498)
[2019-12-04 18:48] LABS: D Dimer 2.66 ug/mIFEU (0-0.59)
[2019-12-04 18:54] LABS: Lactic Sepsis W/Reflex 1.6 mmol/L (0.5-2.2)
[2019-12-04 18:55] LABS: Alanine Aminotransferase 18 U/L (0-41); Albumin Level 3.5 g/dL (3.5-5.2); Alkaline Phosphatase 142 IU/L (40-130); Anion Gap 15.4 (5-19); Aspartate Amino Transferase 21 U/L (0-40); Blood Urea Nitrogen 30 mg/dL (8-23); C Reactive Protein 278.8 mg/L (0.0-4.9); Calcium 8.6 mg/dL (8.5-10.5); Carbon Dioxide 25 mmol/L (22-29); Chloride 94 mmol/L (98-107); Ferritin 955 ng/mL (30-400); Globulin 3.4 g/dL (1.3-4.6); Glucose 86 mg/dL (65-115); Lactate Dehydrogenase 157 U/L (135-225); Osmolality Calculated 275 mOsm/kg (285-295); Potassium 4.4 mmol/L (3.5-5.1); Sodium 130 mmol/L (136-145); Total Protein 6.9 g/dL (6.6-8.7)
--- NOTE | 2019-12-04 18:56 | XRR_ITS ---
PROCEDURE INFORMATION: Exam: XR Chest, 1 View Exam date and time: 12/04/2019 7:20 PM Age: 74 years old Clinical indication: Cough and dyspnea; Additional info: Dyspnea/cough TECHNIQUE: Imaging protocol: XR of the chest Views: 1 view. COMPARISON: CR XR chest 1V portable [id number] 11/30/2019 11:25 AM FINDINGS: Lungs: Stable moderate elevation of the left hemidiaphragm. No focal consolidation. No pulmonary edema. Pleural space: No pleural effusion. No pneumothorax. Heart/Mediastinum: Stable mild enlargement of the cardiac silhouette. Mediastinal contours are unremarkable. Vasculature: There is a dual-lead cardiac pacer via left subclavian approach. Findings are stable. Stable vascular calcifications in the aorta. Bones/joints: Bones are diffusely osteopenic. Degenerative changes in the spine and shoulders. Multiple compression deformities with kyphoplasty procedures in the thoracic spine and the upper lumbar spine. Osseous findings are stable. XR/XR chest 1V portable [id number] IMPRESSION: 1. No acute cardiopulmonary process. 2. Incidental/nonacute findings are listed in the report.
[2019-12-04] MEDS: sodium chloride 0.9% 500 ML 999 ML IV (18:57)
[2019-12-04 19:14] LABS: Influenza A by IFA Negative (Negative); Influenza B by IFA Negative (Negative)
[2019-12-04 19:15] LABS: SARS Covid-2 Antigen Negative (Negative)
[2019-12-04] MEDS: sodium chloride 0.9% 1,000 ML 999 ML IV (20:27)
[2019-12-04 21:53] LABS: Urine Color Yellow (Yellow)
[2019-12-04 21:54] LABS: Add Urine Microscopic? YES; Bilirubin Urine Neg (Negative); Blood Urine 3+ (Negative); Glucose Urine UA Norm (Normal); Ketones Urine Negative (Negative); Leukocyte Esterase Urine 2+ (Negative); Nitrate Urine Positive (Negative); Protein Urine 1+ (Negative); Specific Gravity, Urine 1.005 (1.005-1.030); Urobilinogen Urine Norm (Negative); pH Urine 6 (5-7)
[2019-12-04 22:19] LABS: RBC Urine TOO NUMEROUS TO CNT /hpf (0-2); Squamous Epithelial Cell Urine 0-4 /hpf (0-5); WBC Urine TOO NUMEROUS TO CNT /hpf (0-5)
[2019-12-04 22:20] LABS: Add Urine Culture? Yes; Bacteria Urine 4+ /hpf
[2019-12-04] MEDS: cefTRIAXone 1,000 MG in sodium chloride 0.9% (plus) 50 ML 100 MG IV (22:41)
[2019-12-04 22:53] VITALS: BP 135/69; PULSE 86; RESP 30; O2SAT 96
--- NOTE | 2019-12-04 23:33 | CTR_ITS ---
PROCEDURE INFORMATION: Exam: CT Abdomen And Pelvis Without Contrast Exam date and time: 12/04/2019 11:51 PM Age: 74 years old Clinical indication: Prior surgery; Surgery date: 6+ months; Surgery type: Kypho, R cali; Patient HX: Fever - hematuria - UTI; Additional info: UTI and fever TECHNIQUE: Imaging protocol: Computed tomography of the abdomen and pelvis without contrast. Radiation optimization: All CT scans at this facility use at least one of these dose optimization techniques: automated exposure control; mA and/or kV adjustment per patient size (includes targeted exams where dose is matched to clinical indication); or iterative reconstruction. COMPARISON: CR (PELVIS, ) 11/25/2019 10:46 AM RADIATION DOSE METRICS: Total DLP (mGy-cm): 743.24 FINDINGS: Limitations: Examinations performed without intravenous contrast have limited ability to detect many conditions. Lower thorax: Marked emphysematous changes at bilateral lung apices. Mild atelectasis and scarring at bilateral lung bases. Small bilateral pleural effusions. Liver: Unremarkable. Gallbladder and bile ducts: Unremarkable. Pancreas: Fatty infiltration of the pancreas, which is often seen with aging. Spleen: Unremarkable. Adrenals: Unremarkable. Kidneys and ureters: The right kidney is unremarkable. The left kidney is moderately atrophic. Stomach and bowel: No bowel obstruction identified. Diverticulosis of the descending and sigmoid colon without evidence of diverticulitis. Appendix: The appendix is not identified as a separate structure. Intraperitoneal space: No free intraperitoneal air identified. No free intraperitoneal fluid identified. Vasculature: Extensive atherosclerotic aortoiliac calcification. No abdominal aortic aneurysm. Lymph nodes: Unremarkable. Urinary bladder: Marked wall thickening of the bladder, suggesting cystitis. Reproductive: Unremarkable as visualized. Bones/joints: Marked compression deformity of T10, status post vertebroplasty. Marked compression deformity of T12, status post vertebroplasty. Mild compression deformity of L1, status post vertebroplasty. Marked compression deformity of L2, status post vertebroplasty. Moderate compression deformity of L5, status post vertebroplasty. Mild degenerative disc disease at every level between T11 and L4. Mild spinal canal stenosis at L2 related to posterior bulging of posterior cortex. Status post right hip arthroplasty. Soft tissues: Unremarkable. CT/CT kidney stone 62095 IMPRESSION: 1. Small bilateral pleural effusions. 2. Marked wall thickening of the bladder, suggesting cystitis. 3. Additional, nonemergent findings as above. Radiation Dose CTDIVOL = (mGy): DLP = 743.24 (mGy-cm)
--- NOTE | 2019-12-04 23:34 | P.HP_ITS ---
Providers/Chief Complaint Primary Care Provider: Jose Manuel Oliver MD Chief Complaint: fever History of Present Illness Clayton Swanson is a 74 year old male who carries history of systemic lupus erythematosus, hypothyroidism, diastolic heart failure, esophageal stricture with balloon dilation , coronary artery disease with stent placement, bradycardia status post pacemaker placement, came in today for febrile episode. Patient is stating that today he spiked fever 103 which are associated with chills, he did not experience any vomiting, chest pain excessive sputum production, cough, diarrhea. He has not noticed any flank pain, groin pain or blood in urine. With this fever he noticed pounding headache which improved afterwards, he is denying neck pain, no confusion spells or persistent headache. No recent sick contacts, his does not have any myalgias or fever. Diagnosis in the ER revealed sepsis with UTI, fever 100.2, tachypnea, leukocytosis, abnormal UA, CT abdomen did not reveal hydronephrosis, cystitis evident, compression fracture of T10 compression deformity of L1, small bilateral pleural effusion diverticulosis without inflammation He was given 2 L normal saline and ceftriaxone, I have requested for culture, urine culture have been taken in the ER COVID antigen negative, high inflammatory markers secondary to sepsis Review of Systems Const: Reports: fever(s), chills, body aches and fatigue Eyes: Denies: change in vision ENMT: Denies: throat pain Card: Reports: dyspnea on exertion; Denies: chest pain Resp: Reports: dyspnea GI: Denies: abdominal pain, diarrhea or constipation : Denies: flank pain, dysuria, urinary frequency, urinary urgency or urinary hesitancy Musc: Reports: muscle weakness; Denies: neck pain Skin/Breast: Reports: erythema, photosensitivity, lesions and dry skin Neuro: Reports: headache(s); Denies: difficulty walking or confusion Psych: Denies: anxiety Endo: Denies: polyuria Mohit/Lymph: Denies: easy bruising All/Imm: Denies: urticaria Medications/Allergies Home Medications Medication Instructions Recorded Confirmed Last Taken Type furosemide 20 mg tablet 20 mg PO QAM #90 tab 07/05/19 12/04/19 12/03/19 Rx Brilinta 90 mg PO DAILY 08/02/19 12/04/19 12/03/19 History Stiolto Respimat 1 puff INHALATION BID 08/02/19 12/04/1912/02/20 History atorvastatin 10 mg PO DAILY #0 08/02/19 12/04/19 12/03/19 History cholecalciferol (vitamin D3) 50,000 unit PO Q30D 08/02/19 12/04/19 09/25/19 History clonazepam [Klonopin] 1 mg PO BID 08/02/19 12/04/19 12/03/19 History leflunomide 5 mg PO DAILY 08/02/19 12/04/19 12/03/19 History levothyroxine 100 mcg PO DAILY 08/02/19 12/04/19 12/03/19 History magnesium oxide 400 mg PO DAILY 08/02/19 12/04/19 12/03/19 History pantoprazole 40 mg PO DAILY 08/02/19 12/04/19 12/03/19 History digoxin 125 mcg (0.125 mg) tablet 125 mcg PO DAILY #30 tab 10/20/19 12/04/19 12/03/19 Rx gabapentin 100 mg PO TID PRN 11/01/19 12/04/19 12/03/19 History albuterol sulfate [ProAir HFA] 2 puff INHALATION QID PRN 11/30/19 12/04/19 Unknown History citalopram 40 mg PO DAILY 11/30/19 12/04/19 12/03/19 History fiber 1 tab PO DAILY 11/30/19 12/04/19 12/03/19 History fluticasone propionate [Flonase 2 spray INTRANASAL DAILY 11/30/19 12/04/19 Unknown History Allergy Relief] potassium chloride 20 meq PO DAILY 11/30/19 12/04/19 12/03/19 History Allergies Allergy/AdvReac Type Severity Reaction Status Date / Time bee venom protein (honey bee) Allergy ALGY-Anaphy Verified 11/25/19 10:17 laxis PFSH Acute PFSH: Medical History Atrial fibrillation Not on anticoagulation secondary to blood loss anemia after surgery, with easy bruising of skin due to lupus Bradycardia COPD (chronic obstructive pulmonary disease) Coronary artery disease Diastolic heart failure Dyslipidemia Esophageal stricture Gastric ulcer Exploratory laparotomy after perforation Hypotension (arterial) Hypothyroidism Lupus (systemic lupus erythematosus) Rheumatoid arthritis/lupus Orthostasis Syncope Secondary to polypharmacy in the past Surgical History H/O colonoscopy 5 yrs ago H/O esophagogastroduodenoscopy (09/28/19) schatzki ring, dilated to 18mm H/O hernia repair H/O knee surgery History of appendectomy History of cardiac cath No significant stenotic lesions were identified, 05/2017 History of right hip replacement Previous back surgery S/P coronary artery stent placement S/P dilatation of esophageal stricture 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 Family History Brother Cancer Prostate cancer Father CAD (coronary artery disease) Mother CAD (coronary artery disease) Denies family history of Anesthesia complication Bleeding disorder Social History Smoking and tobacco status: former smoker Alcohol intake: current Alcohol type: beer Household members: family Housing: House Marital status: Current occupational status: retired History of recent travel: No Vitals/I&O/Wt Last Vital Signs Temp 98.7 F 12/04/19 15:45 Pulse 86 12/04/19 22:53 Resp 30 H 12/04/19 22:53 BP 135/69 12/04/19 22:53 Pulse Ox 96 12/04/19 22:53 Weight last 48 hrs Weight 55.338 kg Physical Exam Narrative: EXAM NARRATIVE: Pleasant elderly male Facial flushing Multiple macular rash all over his body No active respiratory distress Febrile in the ER 100.2 Stable blood pressure after getting 1.5 L of normal saline Abdomen soft nontender, nondistended Lower extremity no edema gangrene or ulcer Neurologically no focal exam GCS 15, awake alert oriented x3 EOMI, PERRLA No signs of meningismus, Kernig's and Brudzinski sign negative No skin cellulitis Data : 12/04/19 18:00 12/04/19 18:00 A&P Assessment and plan (1) Urinary tract infection: Status: Acute Qualifiers: Hematuria presence: with hematuria Urinary tract infection type: acute cystitis Qualified Code(s): N30.01 - Acute cystitis with hematuria (2) Sepsis: Status: Acute (3) Chronic hyponatremia: Status: Acute (4) Diastolic heart failure: Status: Acute Qualifiers: Heart failure chronicity: chronic Qualified Code(s): I50.32 - Chronic diastolic (congestive) heart failure (5) Hypothyroidism: Status: Acute (6) Acute kidney injury: Status: Acute Additional A&P Information Sepsis due to UTI Criteria met with fever, tachypnea, leukocytosis, abnormal UA reviewed, no hydronephrosis on CT abdomen We will keep him on maintenance fluid, start ceftriaxone, urine and blood culture ordered No septic encephalopathy, COVID antigen negative Acute kidney injury This looks secondary to sepsis and dehydration, there is no sign of hydronephrosis, Currently getting fluids, hold digoxin, hold Lasix Clinically looks dehydrated Hold digoxin and psychotropic medications Chronic hyponatremia, current sodium 130, 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 fib Currently no decompensation, not candidate of anticoagulation due to subcutaneous bleed SLE with high CRP: Indicative of active sepsis and bacterial infection We will follow-up with blood and urine culture report Hypotension: Patient has been using steroids chronically, currently blood pressure responsive to fluids, will monitor for now would hold off on stress dose steroids, threshold will be low to administer No acute decompensation of diastolic congestive heart failure: Holding Lasix Goals of care: Discussed with the patient, DNR/DNI Cardiac diet DVT prophylaxis Heparin Attestations Medical Necessity Statement*: Anticipating stay in the hospital cross more th an 2 midnights currently need management for sepsis due to UTI Time Spent in Patient Care: (>than 50% of time spent in counselling and/or direct pt care on unit) . 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
[2019-12-05] VITALS (12 sets, daily range): BP systolic 102–132; BP diastolic 61–75; PULSE 70–86; RESP 16–30; TEMP 36.7–37.9; O2SAT 95–100
[2019-12-05] MEDS: heparin 5,000 unit/mL INJ 1 mL 5000 UNIT SUBCUT ×3 (02:19→17:24)
[2019-12-05] MEDS: sodium chloride 0.9% 1,000 ML 75 ML IV (02:19)
[2019-12-05 05:31] LABS: Hematocrit 28.6 % (42.0-52.0); Hemoglobin 9.3 g/dL (11.7-16.6); Mean Corpuscular HGB Conc 32.5 g/dL (30.0-36.0); Mean Corpuscular Hemoglobin 30.5 pg (28.0-34.0); Mean Corpuscular Volume 93.8 fL (80-94); Mean Platelet Volume 11.5 fL (7.4-10.4); Platelet Count 159 10^3/cmm (130-400); Red Blood Count 3.05 10^6/uL (4.1-5.3); Red Cell Distribution Width 14.6 % (12.1-15.1); White Blood Count 16.8 10^3/uL (4.0-10.0)
[2019-12-05 05:46] LABS: Anion Gap 15.1 (5-19); Blood Urea Nitrogen 28 mg/dL (8-23); Calcium 7.9 mg/dL (8.5-10.5); Carbon Dioxide 22 mmol/L (22-29); Chloride 97 mmol/L (98-107); Glucose 80 mg/dL (65-115); Osmolality Calculated 274 mOsm/kg (285-295); Potassium 4.1 mmol/L (3.5-5.1); Sodium 130 mmol/L (136-145)
[2019-12-05 06:05] LABS: Slide Review Slide Review Perform
[2019-12-05 06:06] LABS: Absolute Segmented Neutrophil 10.8 10/cmm (1.6-7.1); Lymphocytes 4 %; Monocytes Absolute 0.2 10^3/cmm (0.1-0.6); Segmented Neutrophils 64 %; Total Cells Counted 100 (0-100)
[2019-12-05 06:07] LABS: Absolute Neutrophil 15.8 10^3/cmm (1.4-6.5); Platelet Estimate Normal (Normal); Poikilocytosis Trace; Polychromasia Trace
[2019-12-05] MEDS: levothyroxine 100 mcg Tablet PO (08:13)
[2019-12-05] MEDS: CLONazepam 0.5 mg Tablet 1 MG PO ×2 (08:13→17:24)
[2019-12-05] MEDS: pantoprazole DR 40 mg Tablet PO (08:13)
[2019-12-05] MEDS: atorvastatin 40 mg Tablet 10 MG PO (08:13)
[2019-12-05] MEDS: ticagrelor 90 mg Tablet PO (08:15)
--- NOTE | 2019-12-05 11:59 | P.PN_ITS ---
Subjective Subjective: Interval history: Patient reports feeling better. Reports some dysuria. No chest pain, shortness of breath, cough, palpitations. No nausea or vomiting. No chills. No diarrhea. Medications: Reviewed: Yes Medication Review Details: Generic Name Dose Route Start Last Admin Trade Name Mel PRN Reason Stop Dose Admin Atorvastatin Calci um 10 mg 12/05/19 09:00 12/05/19 08:13 Lipitor PO 10 mg DAILY HARRIET Administration Clonazepam 1 mg 12/05/19 09:00 12/05/19 08:13 Klonopin PO 1 mg BID HARRIET Administration Heparin Sodium (Be ef Lung) 5,000 unit 12/05/19 02:01 12/05/19 09:11 Heparin SUBCUT 5,000 unit Q8H HARRITE Administration Sodium Chloride 1,000 mls @ 75 ml s/hr 12/05/19 02:01 12/05/19 02:19 Sodium Chloride 0.9% IV 75 mls/hr .[id number] HARRIET Administration Levothyroxine Sodi um 100 mcg 12/05/19 09:00 12/05/19 08:13 Synthroid PO 100 mcg DAILY HARRIET Administration Pantoprazole Sodiu m 40 mg 12/05/19 09:00 12/05/19 08:13 Protonix PO 40 mg DAILY HARRIET Administration Ticagrelor 90 mg 12/05/19 09:00 12/05/19 08:15 Brilinta PO 90 mg DAILY HARRIET Administration Also on Rocephin daily. Vitals/I&O/Wt Last Vital Signs Temp 98.5 F 12/05/19 11:55 Pulse 70 12/05/19 11:55 Resp 16 12/05/19 11:55 BP 102/62 12/05/19 11:55 Pulse Ox 100 12/05/19 11:55 12/04/19 12/05/19 12/05/19 22:59 06:59 14:59 Intake Total 120 / 120 Balance 120 / 120 Weight last 48 hrs Weight 55.338 kg Physical Exam Narrative: EXAM NARRATIVE: Awake alert oriented. No acute distress. Mood and affect are appropriate. Responses are adequate. Skin is warm and dry. Moist mucous membranes. Neck is supple. No JVD Lungs clear to auscultation bilaterally. Heart S1, S2, regular Abdomen is soft, nontender, bowel sounds are present Extremities no edema cyanosis or calf tenderness bilaterally Data : 12/05/19 04:55 12/05/19 04:55 Micro: Microbiology 12/05/19 04:55 Blood Culture - Preliminary Blood SPECIMEN COLLECTED 12/05/19 04:59 Blood Culture - Preliminary Blood SPECIMEN COLLECTED A&P Assessment and plan (1) Urinary tract infection: Status: Acute Qualifiers: Hematuria presence: with hematuria Urinary tract infection type: acute cystitis Qualified Code(s): N30.01 - Acute cystitis with hematuria (2) Sepsis: Status: Acute (3) Chronic hyponatremia: Status: Acute (4) Diastolic heart failure: Status: Acute Qualifiers: Heart failure chronicity: chronic Qualified Code(s): I50.32 - Chronic diastolic (congestive) heart failure (5) Hypothyroidism: Status: Acute (6) Acute kidney injury: Status: Acute Additional A&P Information Sepsis due to UTI Criteria met with fever, tachypnea, leukocytosis, abnormal UA reviewed, no hydronephrosis on CT abdomen We will keep him on maintenance fluid, start ceftriaxone, urine and blood culture ordered No septic encephalopathy, COVID antigen negative Acute kidney injury This looks secondary to sepsis and dehydration, there is no sign of hydronephrosis, Currently getting fluids, hold digoxin, hold Lasix Clinically looks dehydrated Hold digoxin and psychotropic medications Chronic hyponatremia, current sodium 130, 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 fib Currently no decompensation, not candidate of anticoagulation due to subcutaneous bleed SLE with high CRP: Indicative of active sepsis and bacterial infection We will follow-up with blood and urine culture report Hypotension: Patient has been using steroids chronically, currently blood pressure responsive to fluids, will monitor for now would hold off on stress dose steroids, threshold will be low to administer No acute decompensation of diastolic congestive heart failure: Holding Lasix Goals of care: Discussed with the patient, DNR/DNI Cardiac diet DVT prophylaxis Heparin [place] Sepsis secondary to UTI. Stable now. Continue Rocephin and IV fluids. Waiting for the culture results. Mild acute kidney injury. Continue hydration and monitoring of the renal function. Anemia. Monitor. History of hyponatremia. Mild. Stable. Continue monitoring. History of atrial fibrillation. Rate controlled. Not on chronic anticoagulation. DVT prophylaxis. Heparin. History of COPD. No evidence of exacerbation. History of diastolic heart failure. Stable now. We will try to avoid fluid overload. Please reassess hydration status in the morning and stopped IV fluids if possible. Lasix is on hold for now. Attestations Medical Necessity Statement*: Admitted with sepsis. Still requires IV fluids and IV antibiotics. 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
[2019-12-05] MEDS: sodium chloride 0.9% 1,000 ML 60 ML IV (14:57)
[2019-12-05] MEDS: cefTRIAXone 1,000 MG in sodium chloride 0.9% (plus) 50 ML 100 MG IV (22:00)
[2019-12-06] MEDS: heparin 5,000 unit/mL INJ 1 mL 5000 UNIT SUBCUT ×3 (02:17→17:07)
[2019-12-06 04:00] VITALS: BP 143/82; PULSE 117; RESP 17; TEMP 37.9; O2SAT 99
[2019-12-06 05:25] LABS: Basophils % 0.3 %; Eosinophils % 0.1 %; Hematocrit 27.8 % (42.0-52.0); Hemoglobin 9.1 g/dL (11.7-16.6); Lymphocytes # 0.9 10^3/uL (0.8-4.8); Lymphocytes % 7.4 %; Mean Corpuscular HGB Conc 32.7 g/dL (30.0-36.0); Mean Corpuscular Volume 91.7 fL (80-94); Mean Platelet Volume 11.6 fL (7.4-10.4); Monocytes # 0.7 10^3/uL (0.2-0.9); Monocytes % 5.9 %; Neutrophils # 10.22 10^3/uL (1.8-7.7); Neutrophils % 85.7 %; Nucleated Red Blood Cells % 0 %; Platelet Count 166 10^3/cmm (130-400); Red Blood Count 3.03 10^6/uL (4.1-5.3); Red Cell Distribution Width 14.6 % (12.1-15.1); White Blood Count 11.9 10^3/uL (4.0-10.0)
[2019-12-06 05:44] LABS: Alanine Aminotransferase 15 U/L (0-41); Alkaline Phosphatase 142 IU/L (40-130); Anion Gap 14.6 (5-19); Aspartate Amino Transferase 26 U/L (0-40); Blood Urea Nitrogen 29 mg/dL (8-23); Calcium 8.1 mg/dL (8.5-10.5); Carbon Dioxide 21 mmol/L (22-29); Chloride 99 mmol/L (98-107); Globulin 3.1 g/dL (1.3-4.6); Glucose 105 mg/dL (65-115); Magnesium 1.8 mg/dL (1.7-2.3); Osmolality Calculated 278 mOsm/kg (285-295); Potassium 3.6 mmol/L (3.5-5.1); Sodium 131 mmol/L (136-145); Total Bilirubin 0.5 mg/dL (0.15-1.2); Total Protein 6.1 g/dL (6.6-8.7)
[2019-12-06 07:43] VITALS: BP 143/87; PULSE 91; RESP 18; TEMP 36.6; O2SAT 98
[2019-12-06] MEDS: CLONazepam 0.5 mg Tablet 1 MG PO ×2 (08:06→17:07)
[2019-12-06] MEDS: ticagrelor 90 mg Tablet PO (08:06)
[2019-12-06] MEDS: pantoprazole DR 40 mg Tablet PO (08:07)
[2019-12-06] MEDS: sodium chloride 0.9% 1,000 ML 60 ML IV (08:07)
[2019-12-06] MEDS: levothyroxine 100 mcg Tablet PO (08:07)
[2019-12-06] MEDS: atorvastatin 40 mg Tablet 10 MG PO (08:07)
--- NOTE | 2019-12-06 11:45 | P.PN_ITS ---
Subjective Subjective: Interval history: Patient feels little bit weaker today. He has had no fever since yesterday though. When he got up and walked with physical therapy a few minutes ago he actually felt a little better. No chest pain or shortness of breath. Still just a lot of weakness. Vitals/I&O/Wt Last Vital Signs Temp 97.8 F 12/06/19 07:43 Pulse 91 12/06/19 07:43 Resp 18 12/06/19 07:43 BP 143/87 12/06/19 07:43 Pulse Ox 98 12/06/19 07:43 12/05/19 12/06/19 12/06/19 22:59 06:59 14:59 Intake Total 120 / 1427.5 1240 / 1240 Output Total 250 / 500 150 / 500 150 / 150 Balance -130 / 927.5 -150 / 927.5 1090 / 1090 Weight last 48 hrs Weight 122 lb Physical Exam Narrative: EXAM NARRATIVE: General: No acute distress, Alert. Well nourished. Heart: Regular rate and rhythm. No murmurs, rubs or gallops. Normal capillary refill. Lungs: Clear to auscultation. No wheezes, rhonchi or rales. Abdomen: Positive bowel sounds. Non-tender, non-distended. No hepatosplenomegaly. No gaurding. Extremities: No clubbing, cyanosis, or edema. Negative Sebastian's Data : 12/06/19 04:55 12/06/19 04:55 Micro: Microbiology 12/04/19 21:35 Urine Culture - Preliminary Urine,Clean Catch Gram Negative Rods 12/05/19 04:55 Blood Culture - Preliminary Blood NEGATIVE TO DATE 12/05/19 04:59 Blood Culture - Preliminary Blood NEGATIVE TO DATE A&P Assessment and plan (1) Sepsis: -This is the primary issue for his admission. Currently on Rocephin. Seems to be improving clinically but still weak. We will repeat his labs today. Continue with physical therapy and Occupational Therapy. Anticipate discharge probably tomorrow if he continues to improve. Status: Acute (2) Urinary tract infection: Status: Acute Qualifiers: Hematuria presence: with hematuria Urinary tract infection type: acute cystitis Qualified Code(s): N30.01 - Acute cystitis with hematuria (3) Atrial fibrillation: Status: Acute Qualifiers: Atrial fibrillation type: persistent (not longstanding) Qualified Code(s): I48.19 - Other persistent atrial fibrillation (4) COPD (chronic obstructive pulmonary disease): Status: Acute Qualifiers: COPD type: unspecified COPD Qualified Code(s): J44.9 - Chronic obstructive pulmonary disease, unspecified (5) Current chronic use of systemic steroids: Status: Acute Attestations Medical Necessity Statement*: Patient is 74-year-old with urinary tract infection and sepsis requiring continued inpatient IV treatments and monitoring. 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
[2019-12-06 12:00] VITALS: O2SAT 95
[2019-12-06 12:07] VITALS: PULSE 82
[2019-12-06] MEDS: digoxin 125 mcg Tablet PO (12:07)
[2019-12-06] MEDS: citalopram 20 mg Tablet 40 MG PO (12:09)
[2019-12-06 15:03] VITALS: BP 152/80; PULSE 79; RESP 18; TEMP 36.8; O2SAT 97
--- NOTE | 2019-12-06 18:33 | PC.NURSE ---
Cummulative I&O's: Patient has had 3 wet briefs this shift. Unable to accurately measure urine output. SMW, CHANGE MANAGEMENT FACILITATOR
[2019-12-06 20:00] VITALS: BP 129/77; PULSE 70; RESP 20; TEMP 36.4; O2SAT 98
[2019-12-06] MEDS: cefTRIAXone 1,000 MG in sodium chloride 0.9% (plus) 50 ML 100 MG IV (23:14)
[2019-12-07] VITALS (8 sets, daily range): BP systolic 129–144; BP diastolic 62–83; PULSE 67–89; RESP 16–24; TEMP 37.1–37.3; O2SAT 91–99
[2019-12-07] MEDS: heparin 5,000 unit/mL INJ 1 mL 5000 UNIT SUBCUT ×2 (01:46→08:58)
[2019-12-07 05:23] LABS: Basophils # 0.1 10^3/uL (0.0-0.1); Basophils % 0.6 %; Eosinophils % 0.5 %; Hematocrit 26.8 % (42.0-52.0); Hemoglobin 8.6 g/dL (11.7-16.6); Lymphocytes # 0.8 10^3/uL (0.8-4.8); Lymphocytes % 9.7 %; Mean Corpuscular HGB Conc 32.1 g/dL (30.0-36.0); Mean Corpuscular Hemoglobin 30.3 pg (28.0-34.0); Mean Corpuscular Volume 94.4 fL (80-94); Mean Platelet Volume 11.3 fL (7.4-10.4); Monocytes # 0.9 10^3/uL (0.2-0.9); Monocytes % 10.5 %; Neutrophils # 6.68 10^3/uL (1.8-7.7); Nucleated Red Blood Cells % 0 %; Platelet Count 180 10^3/cmm (130-400); Red Blood Count 2.84 10^6/uL (4.1-5.3); Red Cell Distribution Width 14.7 % (12.1-15.1); White Blood Count 8.6 10^3/uL (4.0-10.0)
[2019-12-07 05:50] LABS: Alanine Aminotransferase 23 U/L (0-41); Albumin Level 2.7 g/dL (3.5-5.2); Alkaline Phosphatase 157 IU/L (40-130); Anion Gap 11.4 (5-19); Aspartate Amino Transferase 35 U/L (0-40); Blood Urea Nitrogen 24 mg/dL (8-23); C Reactive Protein 173.2 mg/L (0.0-4.9); Calcium 7.7 mg/dL (8.5-10.5); Carbon Dioxide 23 mmol/L (22-29); Chloride 103 mmol/L (98-107); Glucose 106 mg/dL (65-115); Osmolality Calculated 282 mOsm/kg (285-295); Potassium 3.4 mmol/L (3.5-5.1); Sodium 134 mmol/L (136-145); Total Bilirubin 0.3 mg/dL (0.15-1.2); Total Protein 5.7 g/dL (6.6-8.7)
[2019-12-07] MEDS: FUROsemide 20 mg Tablet PO (05:50)
[2019-12-07] MEDS: sodium chloride 0.9% 1,000 ML 60 ML IV (05:51)
--- NOTE | 2019-12-07 08:50 | PC.SOCIAL ---
IMM Page 2 of IMM given to patient. Initialed, dated, and timed and placed in chart.
[2019-12-07] MEDS: CLONazepam 0.5 mg Tablet 1 MG PO (08:55)
[2019-12-07] MEDS: ticagrelor 90 mg Tablet PO (08:55)
[2019-12-07] MEDS: atorvastatin 40 mg Tablet 10 MG PO (08:56)
[2019-12-07] MEDS: potassium chloride ER 10 mEq Tablet 20 MEQ PO (08:56)
[2019-12-07] MEDS: pantoprazole DR 40 mg Tablet PO (08:57)
[2019-12-07] MEDS: magnesium oxide 400 mg tablet PO (08:57)
[2019-12-07] MEDS: citalopram 20 mg Tablet 40 MG PO (08:57)
[2019-12-07] MEDS: levothyroxine 100 mcg Tablet PO (08:57)
[2019-12-07] MEDS: digoxin 125 mcg Tablet PO (08:57)
[2019-12-07] MEDS: albuterol 8 gm MDI 2 PUFF INHALATION (09:09)
--- NOTE | 2019-12-07 10:40 | PC.OT ---
OT Note: Patient refused occupational therapy treatment today.
--- NOTE | 2019-12-07 13:24 | PM.DCS ---
Discharge Providers Date of Admission: 12/04/19 23:37 Date of Discharge: December 07, 2019 Attending Provider at Admission: Chas Joyce MD Attending Provider at Discharge: Jose Manuel Oliver MD Primary Care Provider: Jose Manuel Oliver MD Diagnoses at Discharge Discharge Diagnosis (1) Sepsis: Status: Acute (2) Urinary tract infection: Status: Acute Qualifiers: Hematuria presence: with hematuria Urinary tract infection type: acute cystitis Qualified Code(s): N30.01 - Acute cystitis with hematuria (3) Atrial fibrillation: Status: Acute Problem details: Not on anticoagulation secondary to blood loss anemia after surgery, with easy bruising of skin due to lupus Qualifiers: Atrial fibrillation type: persistent (not longstanding) Qualified Code(s): I48.19 - Other persistent atrial fibrillation (4) COPD (chronic obstructive pulmonary disease): Status: Acute Qualifiers: COPD type: unspecified COPD Qualified Code(s): J44.9 - Chronic obstructive pulmonary disease, unspecified (5) Current chronic use of systemic steroids: Status: Acute Reason for Visit Reason for Visit: fever Hospital Course Discharge Summary: patient was admitted for sepsis and UTI. Recieved IV Rocephin. Done well. labs and symptoms improved. Was discharged in good condition. will f/u in 2-3 days. Discharge Data Data Completed and Pending: Completed Studies During Hospitalization Category Date Time Status CT kidney stone [id number] Urgent Cat Scan 12/04/19 23:33 Completed XR chest 1V nataliya ble [id number] Stat Exams 12/04/19 18:56 Completed Pending at discharge Category Date Time Status Blood Culture Sta t Lab 12/05/19 04:55 Results Labs from last 24 hours 12/07/19 12/07/19 04:18 04:18 WBC 8.6 RBC 2.84 L Hgb 8.6 L Hct 26.8 L MCV 94.4 H MCH 30.3 MCHC 32.1 RDW 14.7 Plt Count 180 MPV 11.3 H Neut % (Auto) 78.0 Lymph % (Auto) 9.7 [place] % (Auto) 10.5 Eos % (Auto) 0.5 Baso % (Auto) 0.6 Neut # (Auto) 6.68 Lymph # (Auto) 0.8 [place] # (Auto) 0.9 Eos # (Auto) 0.0 Baso # (Auto) 0.1 Nucleated RBC % (a uto) 0 Nucleated RBCs # 0.0 Sodium 134 L Potassium 3.4 L Chloride 103 Carbon Dioxide 23 Anion Gap 11.4 BUN 24 H Creatinine 1.1 GFR Calculation Not Reportable Glucose 106 Calculated Osmolal ity 282 L Calcium 7.7 L Total Bilirubin 0.3 AST 35 ALT 23 Alkaline Phosphata se 157 H C-Reactive Protein 173.2 H Total Protein 5.7 L Albumin 2.7 L Globulin 3.0 Vitals: Last Vital Signs Temp 98.7 F 12/07/19 11:29 Pulse 73 12/07/19 11:29 Resp 20 H 12/07/19 11:29 BP 143/75 12/07/19 11:29 Pulse Ox 97 12/07/19 11:29 Discharge Plan Discharge Patient Disposition: Home Condition: Stable Prescriptions: New amoxicillin-pot clavulanate [Augmentin] 500-125 mg tablet 1 tab PO TID Qty: 21 RF: 0 Continued gabapentin 100 mg PO TID PRN (Reason: Pain) RF: 0 furosemide 20 mg tablet 20 mg PO QAM Qty: 90 RF: 3 digoxin 125 mcg (0.125 mg) tablet 125 mcg PO DAILY Qty: 30 RF: 3 cholecalciferol (vitamin D3) 1,250 mcg (50,000 unit) capsule 50,000 unit PO Q30D RF: 0 atorvastatin 10 mg Tablet 10 mg PO DAILY Qty: 0 RF: 0 clonazepam [Klonopin] 0.5 mg Tablet 1 mg PO BID RF: 0 leflunomide 10 mg Tablet 5 mg PO DAILY RF: 0 pantoprazole 40 mg Tablet,Delayed Release (Dr/Ec) 40 mg PO DAILY RF: 0 levothyroxine 100 mcg Capsule 100 mcg PO DAILY RF: 0 Brilinta 90 mg Tablet 90 mg PO DAILY RF: 0 Stiolto Respimat 2.5-2.5 mcg/actuation Mist 1 puff inhalation BID RF: 0 magnesium oxide 400 mg magnesium Tablet 400 mg PO DAILY RF: 0 albuterol sulfate [ProAir HFA] 90 mcg/actuation Hfa Aerosol Inhaler 2 puff INHALATION QID PRN (Reason: Shortness Of Breath) RF: 0 fluticasone propionate [Flonase Allergy Relief] 50 mcg/actuation [place],Suspension 2 spray INTRANASAL DAILY RF: 0 potassium chloride 20 mEq Tablet Extended Release 20 meq PO DAILY RF: 0 fiber 1 tab PO DAILY RF: 0 citalopram 20 mg tablet 40 mg PO DAILY RF: 0 Discharge Orders: Discharge Order (Routine); Ordered 12/07/19 Ordered By: Jose Manuel Oliver Referrals: [facility] [place] [Outside] Jose Manuel Olievr MD [Primary Care Provider] - 12/09/19 12:00 pm Discharge Diet: Advance as tolerated Discharge Activity: Resume usual activity Activity Restrictions/Additional Instructions: - Resume your home meds the same - new medication of augmentin for an antibiotic - Call if worsening weakness/ fevers - follow up with Dr. Oliver in 2-3 days Discharge Attestations Time Spent in Discharge Care*: greater than 30 min Quality Metrics Clinical Quality Measures During this hospital stay, did patient experience: None Coding Level of Care Code Acute Ict Analyst for Chg Fwd Diagnoses Sepsis A41.9 Urinary tract infection N30.01 Hematuria presence: with hematuria Urinary tract infection type: acute cystitis Atrial fibrillation I48.19 Atrial fibrillation type: persistent (not longstanding) COPD (chronic obstructive pulmonary disease) J44.9 COPD type: unspecified COPD Current chronic use of systemic steroids Z79.52
== END 2019-12-07 14:38 | disposition home or self-care (01) | DRG 872 ==
LOC: ER 18:46 → MEDSURG 23:45
PROVIDERS: Emergency Medicine; Family Medicine; Internal Medicine; Admitting Provider Internal Medicine; PCP Family Medicine; Visit Provider Family Medicine
DX: A41.9 Sepsis, unspecified organism (principal); N30.01 Acute cystitis with hematuria; E87.1 Hypo-osmolality and hyponatremia; N17.9 Acute kidney failure, unspecified; J90 Pleural effusion, not elsewhere classified; I50.32 Chronic diastolic (congestive) heart failure; I48.19 Other persistent atrial fibrillation; E03.9 Hypothyroidism, unspecified; I11.0 Hypertensive heart disease with heart failure; Z79.52 Long term (current) use of systemic steroids; J44.9 Chronic obstructive pulmonary disease, unspecified; Z20.828 Contact with and (suspected) exposure to other viral communicable diseases; M32.9 Systemic lupus erythematosus, unspecified; I25.10 Atherosclerotic heart disease of native coronary artery without angina pectoris; Z95.5 Presence of coronary angioplasty implant and graft; R00.1 Bradycardia, unspecified; Z95.0 Presence of cardiac pacemaker; E78.5 Hyperlipidemia, unspecified; Z87.891 Personal history of nicotine dependence
CPT/HCPCS: 12345; 36415; 36600; 71045; 74176; 80048; 80053; 81001; 82728; 82803; 83605; 83615; 83735; 85007; 85025; 85378; 85384; 86140; 87040; 87077; 87086; 87186; 87426; 87804; 93005; 94640; 96372; 97110; 97116; 97161; 97166; 99283; J0696; J1644; J3535; J7030; J7040

== ENCOUNTER → 2019-12-22 13:15 | Outpatient (BNVA) | payer OTHER, MEDICARE, SELFPAY | PROVIDERS: PCP Family Medicine; Visit Provider Internal Medicine | DX: M32.9 Systemic lupus erythematosus, unspecified (principal); Z79.899 Other long term (current) drug therapy; Z11.59 Encounter for screening for other viral diseases; Z11.1 Encounter for screening for respiratory tuberculosis; D86.9 Sarcoidosis, unspecified; M06.9 Rheumatoid arthritis, unspecified; M25.50 Pain in unspecified joint; R21 Rash and other nonspecific skin eruption; R53.83 Other fatigue; D64.9 Anemia, unspecified; M81.0 Age-related osteoporosis without current pathological fracture | CPT/HCPCS: 99204 ==

== ENCOUNTER 2019-12-22 14:19 | Outpatient (CLI) | payer OTHER, MEDICARE, SELFPAY ==
--- NOTE | 2019-12-22 14:28 | XRR_ITS ---
PROCEDURE INFORMATION: Exam: XR Chest, 2 Views Exam date and time: 12/22/2019 2:48 PM Age: 74 years old Clinical indication: Shortness of breath; Prior surgery; Surgery type: Pacemaker; Additional info: SOB TECHNIQUE: Imaging protocol: XR of the chest Views: 2 views. COMPARISON: CR XR chest 1V portable [id number] 12/04/2019 7:06 PM FINDINGS: Tubes, catheters and devices: Cardiac pacemaker side Lungs: Hyperexpansion of the lungs seen. This finding corresponds COPD. Pleural space: There is elevation of the left hemidiaphragm present. No pleural effusion. 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 No pneumothorax. Heart/Mediastinum: Unremarkable. No cardiomegaly. Bones/joints: There is severe osteopenia in the spine with compression deformities and kyphosis at multiple levels. XR/XR chest 2V* [id number] IMPRESSION: 1. COPD. 2. Elevation left hemidiaphragm 3. Cardiac pacemaker left chest. 4. Severe osteopenia, multiple compression fractures, and kyphosis of the spine
== END 2019-12-22 14:20 | disposition home or self-care (01) ==
LOC: RAD 14:25
PROVIDERS: PCP Family Medicine; Visit Provider Internal Medicine
DX: R06.02 Shortness of breath (principal); M32.9 Systemic lupus erythematosus, unspecified; D86.9 Sarcoidosis, unspecified; J44.9 Chronic obstructive pulmonary disease, unspecified; Z95.0 Presence of cardiac pacemaker; M85.88 Other specified disorders of bone density and structure, other site; M48.50XA Collapsed vertebra, not elsewhere classified, site unspecified, initial encounter for fracture
CPT/HCPCS: 36415; 71046; 80053; 81003; 82306; 82728; 83540; 85025; 85651; 86140; 86431; 86480; 86704; 86803; 87340

== ENCOUNTER 2020-01-05 06:00 | Outpatient (RCR) | payer OTHER, MEDICARE, SELFPAY | END 2020-01-08 23:59 | disposition home or self-care (01) | LOC: SPT 06:00 | PROVIDERS: PCP Family Medicine; Referring Provider Family Medicine; Visit Provider Family Medicine | DX: Z96.641 Presence of right artificial hip joint (principal) | CPT/HCPCS: 97161 ==

== ENCOUNTER → 2020-01-06 10:09 | Outpatient (BNVA) | payer OTHER, MEDICARE, SELFPAY | PROVIDERS: PCP Family Medicine; Visit Provider Internal Medicine Cardiovascular Disease | DX: I48.19 Other persistent atrial fibrillation (principal); R53.83 Other fatigue | CPT/HCPCS: 80162 ==

== ENCOUNTER 2020-01-09 06:00 | Outpatient (RCR) | payer OTHER, MEDICARE, SELFPAY | END 2020-02-07 23:59 | disposition home or self-care (01) | LOC: SPT 06:00 | PROVIDERS: PCP Family Medicine; Referring Provider Family Medicine; Visit Provider Family Medicine | DX: Z47.1 Aftercare following joint replacement surgery (principal); Z96.641 Presence of right artificial hip joint | CPT/HCPCS: 97110 ==

== ENCOUNTER → 2020-01-21 11:07 | Outpatient (BNVA) | payer OTHER, MEDICARE, SELFPAY | PROVIDERS: PCP Family Medicine; Visit Provider Internal Medicine | DX: M32.9 Systemic lupus erythematosus, unspecified (principal); R21 Rash and other nonspecific skin eruption; I95.9 Hypotension, unspecified; D64.9 Anemia, unspecified; N17.9 Acute kidney failure, unspecified; N14.1 Nephropathy induced by other drugs, medicaments and biological substances; T46.0X Poisoning by, adverse effect of and underdosing of cardiac-stimulant glycosides and drugs of similar action; Z79.899 Other long term (current) drug therapy; F17.220 Nicotine dependence, chewing tobacco, uncomplicated | CPT/HCPCS: 99214 ==

== ENCOUNTER 2020-01-25 11:00 | Outpatient (CLI) | payer OTHER, MEDICARE, SELFPAY ==
[2020-01-25 11:14] VITALS: BMI 18.4
--- NOTE | 2020-01-25 11:15 | ECG_ITS ---
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 Interpretive Statements NAME OF STUDY: LEXISCAN SESTAMIBI STRESS TEST INDICATION: Chest Pain PROCEDURE: At the baseline, the EKG revealed 100% a paced V paced rhythm. The baseline blood pressure was 146/85 mm Hg with a heart rate of 95 beats/min. Lexiscan was infused over a period of 20 seconds. A total of 0.4 milligrams of Lexiscan was infused. The stress phase was continued for a total of 5 minutes. Heart rate at the end of the stress phase was 90 with a blood pressure 120/55. The EKG at the peak infusion revealed sinus rhythm with diffuse nonspecific ST-T changes. Sestamibi was injected 20 seconds after the Lexiscan infusion. Blood pressure at the end of the recovery phase was 108/64 with a heart rate of 84 per minute. CONCLUSION: 1. No significant EKG changes with the LexiScan infusion 2. No LexiScan induced chest pain or cardiac arrhythmia 3. Normal blood pressure and heart rate response 4. Sestamibi/sestamibi perfusion scan pending; see separate report. Electronically Signed On 01-27-2020 20:01:34 BELT REPAIRER by Donell Mcdonald M.D. [email or web address]
--- NOTE | 2020-01-25 11:15 | NMCV_ITS ---
NM guzman perf SPECT r/s* [id number] Clayton Swanson Age: 74 Gender: M : 1945 Exam Date: 01/25/2020 11:15 Ordering Phys: Donell Mcdonald MD ([email or web address]) Technologist: LISA Kowalski Exam Location: [facility] Indications: CHEST PAIN STRESS TEST Please [facility] for [facility] IMAGE PROTOCOL Rest/Stress 1 Radiopharmaceutical Dose (mCi) Administration Site Administered by Rest: Tc-99m 11.0 IV LISA Kowalski Sestamibi Stress:Tc-99m 32.3 IV LISA Kowalski Sestamibi Rest: 25-Jan-2020 60 Discovery 630 Stress: 25-Jan-2020 30 Discovery 630 SPECT RESULTS Technical Quality: Good Raw Data Analysis: Subdiaphragmatic activity Image Corrections: No attenuation or motion correction applied Summed Stress Score: 2 Summed Rest Score: 12 Summed Difference Score: 0 PERFUSION FINDINGS Small to moderate area of moderately decreased tracer uptake were noted in the basal ,mid and apical inferior, mid inferolateral and apical lateral regions. No significant reversibility was noted in these regions FUNCTIONAL RESULTS (calculated via Gated SPECT) Stress Image LV EF (%): 73 Stress EDV (mL):75 TID: 0.92 Stress ESV (mL):20 FUNCTIONAL FINDINGS: Segmental wall motion analysis revealing no gross wall motion normalities IMPRESSIONS 1. Myocardial perfusion imaging revealing small to moderate area of moderately decreased persistent tracer uptake in the inferior, inferolateral and apical lateral regions, suggestive of myocardial scarring versus attenuation artifacts. 2. Normal LV ejection fraction of 73%. 3. LV wall motion analysis revealing no gross wall motion abnormalities. 4. Normal LV volume. No significant coronary ischemia, based on the above findings. No similar previous studies are available for comparison Dr Donell Mcdonald MD [facility] (Electronically Signed) Final Date: 25 January 2020 18:04 S
[2020-01-25] MEDS: regadenoson 0.4 Mg/5 ml Syringe IVP (13:08)
[2020-01-25 13:20] VITALS: BP 108/64; PULSE 84
== END 2020-01-25 11:01 | disposition home or self-care (01) ==
LOC: RAD 11:08 → CDL 11:14
PROVIDERS: PCP Family Medicine; Visit Provider Internal Medicine Cardiovascular Disease
DX: R07.9 Chest pain, unspecified (principal); I25.118 Atherosclerotic heart disease of native coronary artery with other forms of angina pectoris
CPT/HCPCS: 78452; 93017; A9500; J2785

== ENCOUNTER 2020-02-16 13:02 | Outpatient (CLI) | payer OTHER, SELFPAY ==
[2020-02-16 13:19] VITALS: BMI 18.6
[2020-02-16 13:20] VITALS: BP 121/70; PULSE 60; RESP 18; TEMP 36.6; O2SAT 98
--- NOTE | 2020-02-16 13:36 | PC.NURSE ---
Difficulty obtaining pulse ox. hands warmed. states pt is supposed to be on oxygen at all times. But currently wears it only at night. called daughter, daughter spoke with nurse requesting oxygen for all infusions. State they are arranging home oxygen for 30/09.
[2020-02-16] MEDS: acetaminophen 500 mg Tablet PO (14:10)
[2020-02-16] MEDS: diphenhydrAMINE 25 mg Capsule PO (14:10)
--- NOTE | 2020-02-16 14:55 | PC.NURSE ---
1420 Infusion started at 60ml/hr x15min. Increasing every 15min as pt tolerates. Denies itching or SOB.
--- NOTE | 2020-02-16 14:57 | PC.NURSE ---
1345 Labs obtained with IV start.
[2020-02-16 15:40] VITALS: BP 154/93; PULSE 91; RESP 18; O2SAT 98
[2020-02-16] MEDS: diphenhydrAMINE 50 mg/mL SDV 1mL 25 MG IVP (15:40)
[2020-02-16 15:50] VITALS: O2SAT 98
[2020-02-16 15:53] VITALS: TEMP 36.4
[2020-02-16 16:17] VITALS: BP 153/98; PULSE 68; RESP 18
--- NOTE | 2020-02-16 16:49 | PC.NURSE ---
1530 Pt c/o itching. Had assessed IV 1525, at 1525 Pt stated he felt itchy but that he is normally itchy and didn't know if it was because he had nothing occupying his time or if it was new. No redness no hives denies SOB. 1530, noted hives to pt forehead, cheeks of face bright red, bright red area noted to neck. No hives or redness noted on arms. Infusion stopped. Dr. Goyal notified and in room. Verbal orders noted.
--- NOTE | 2020-02-16 16:53 | PC.NURSE ---
1536 Lungs clear. Pt states he feels SOB. Lungs clear per auscultation. Pox 98%. No swelling noted to face, lips, or tongue. Staff contacting for notification.
--- NOTE | 2020-02-16 16:57 | PC.NURSE ---
1540 Pt c/o of being hot. AC turned on. [place] and jacket removed.
--- NOTE | 2020-02-16 16:58 | PC.NURSE ---
1546 at chair side. Pt states SOB. Pulse ox 98 on 2L. Lungs clear.
--- NOTE | 2020-02-16 16:59 | PC.NURSE ---
1548 Assisted to bathroom per request. assisted as well. Tolerated well. After ambulation without oxygen, Pox 98.
--- NOTE | 2020-02-16 17:00 | PC.NURSE ---
1553 c/o chills. AC turned off. Blankets applied. Temp 97.5. Denies chest pain or pain. Hives on forehead resolving. Noted hives, redness to right arm.
--- NOTE | 2020-02-16 17:02 | PC.NURSE ---
1608 Dr. Goyal in infusion room, assessing pt. Discussed DC Benlysta. Instructed to take Prednisone 10-15mg x3 days. Dr. Goyal also told pt and they could do a dose of Prednisone and/or Prednisone tonight. Instructed to call 911 if any respiratory distress, lip or tongue swelling, difficulty swallowing. verbalized understanding.
--- NOTE | 2020-02-16 17:07 | PC.NURSE ---
5822 Dr. Goyal in room. Pt and feel ready to go home. Deny any concerns. states PCP is arranging for home oxygen. Pt or to call in am and report how pt is doing. Will arrange a f/u appt with Dr. Goyal in a few weeks.
--- NOTE | 2020-02-16 17:17 | PC.NURSE ---
1630 Escorted to private vehicle with .
== END 2020-02-16 13:03 | disposition home or self-care (01) ==
LOC: RHEOACUTE 13:02
PROVIDERS: PCP Family Medicine; Visit Provider Internal Medicine
DX: M32.9 Systemic lupus erythematosus, unspecified (principal); Z79.899 Other long term (current) drug therapy
CPT/HCPCS: 80053; 85025; 85651; 86140; 96365; 96375; J0490; J1200; J2930; J7050

== ENCOUNTER → 2020-03-07 11:05 | Outpatient (BNVA) | payer OTHER, SELFPAY | PROVIDERS: PCP Family Medicine; Visit Provider Internal Medicine | DX: M32.9 Systemic lupus erythematosus, unspecified (principal); D64.9 Anemia, unspecified; R53.83 Other fatigue; Z79.899 Other long term (current) drug therapy; M25.50 Pain in unspecified joint; D72.819 Decreased white blood cell count, unspecified; Z87.891 Personal history of nicotine dependence | CPT/HCPCS: 99213 ==

== ENCOUNTER → 2020-03-28 08:36 | Outpatient (BNVA) | payer OTHER, SELFPAY | PROVIDERS: PCP Family Medicine; Visit Provider Internal Medicine | DX: D64.9 Anemia, unspecified (principal); M32.9 Systemic lupus erythematosus, unspecified; M81.0 Age-related osteoporosis without current pathological fracture; R53.83 Other fatigue; R76.8 Other specified abnormal immunological findings in serum; Z79.899 Other long term (current) drug therapy | CPT/HCPCS: 36415; 80053; 82728; 83540; 83550; 85025; 85651; 86140 ==

== ENCOUNTER 2020-05-22 13:45 | Outpatient (CLI) | payer OTHER, SELFPAY ==
[2020-05-22 14:09] LABS: Basophils # 0.1 10^3/uL (0.0-0.1); Basophils % 0.7 %; Eosinophils # 0.1 10^3/uL (0.0-0.8); Eosinophils % 0.7 %; Hematocrit 34.9 % (42.0-52.0); Hemoglobin 11.3 g/dL (11.7-16.6); Lymphocytes # 1.6 10^3/uL (0.8-4.8); Lymphocytes % 18.5 %; Mean Corpuscular HGB Conc 32.4 g/dL (30.0-36.0); Mean Corpuscular Hemoglobin 33.9 pg (28.0-34.0); Mean Corpuscular Volume 104.8 fL (80-94); Mean Platelet Volume 10.1 fL (7.4-10.4); Monocytes # 0.7 10^3/uL (0.2-0.9); Monocytes % 7.8 %; Neutrophils # 6.11 10^3/uL (1.8-7.7); Neutrophils % 70.3 %; Nucleated Red Blood Cells % 0 %; Platelet Count 233 10^3/cmm (130-400); Red Blood Count 3.33 10^6/uL (4.1-5.3); Red Cell Distribution Width 16.7 % (12.1-15.1); White Blood Count 8.7 10^3/uL (4.0-10.0)
[2020-05-22 14:10] LABS: Add Urine Microscopic? NO
[2020-05-22 14:14] LABS: Bilirubin Urine Neg (Negative); Blood Urine Neg (Negative); Glucose Urine UA Norm (Normal); Ketones Urine Negative (Negative); Leukocyte Esterase Urine Negative (Negative); Nitrate Urine Negative (Negative); Protein Urine Neg (Negative); Specific Gravity, Urine 1.015 (1.005-1.030); Urine Appearance Clear (CLEAR); Urine Color Yellow (Yellow); Urobilinogen Urine Norm (Negative); pH Urine 5 (5-7)
[2020-05-22 14:39] LABS: Alanine Aminotransferase 22 U/L (0-41); Albumin Level 3.6 g/dL (3.5-5.2); Alkaline Phosphatase 96 IU/L (40-130); Anion Gap 13.1 (5-19); Aspartate Amino Transferase 19 U/L (0-40); Blood Urea Nitrogen 31 mg/dL (8-23); C Reactive Protein 6.6 mg/L (0.0-4.9); Calcium 8.6 mg/dL (8.5-10.5); Carbon Dioxide 24 mmol/L (22-29); Chloride 104 mmol/L (98-107); Complement C3 131 mg/dL (90-180); Globulin 3.4 g/dL (1.3-4.6); Glucose 97 mg/dL (65-115); Osmolality Calculated 290 mOsm/kg (285-295); Potassium 4.1 mmol/L (3.5-5.1); Sodium 137 mmol/L (136-145); Total Bilirubin 0.4 mg/dL (0.15-1.2)
[2020-05-22 15:19] LABS: Erythrocyte Sedimentation Rate 41 mm/hr (0-10)
== END 2020-05-22 13:46 | disposition home or self-care (01) ==
LOC: LAB 13:52
PROVIDERS: PCP Family Medicine; Visit Provider Internal Medicine
DX: Z79.899 Other long term (current) drug therapy (principal)
CPT/HCPCS: 36415; 80053; 81003; 85025; 85651; 86140; 86160

== ENCOUNTER → 2020-07-17 10:08 | Outpatient (BNVA) | payer OTHER, SELFPAY | PROVIDERS: PCP Family Medicine; Referring Provider Family Medicine; Visit Provider Anesthesiology Pain Medicine | DX: M54.9 Dorsalgia, unspecified (principal); M47.816 Spondylosis without myelopathy or radiculopathy, lumbar region; M51.16 Intervertebral disc disorders with radiculopathy, lumbar region; Z96.641 Presence of right artificial hip joint | CPT/HCPCS: 99205 ==

== ENCOUNTER 2020-07-18 14:13 | Outpatient (CLI) | payer OTHER, SELFPAY ==
--- NOTE | 2020-07-18 14:00 | CT_ITS ---
WS: [id number] CT LUMBAR SPINE, noncontrast. HISTORY: M51.16 - Intervertebral disc disorders with radiculopathy... TECHNIQUE: Contiguous 2.5 mm axial imaging are performed. Sagittal and coronal reformats are submitte d and reviewed. All CT scans at [facility] use at least one of these dose optimization te chniques: automated exposure control; mA and/or kV adjustment per patient size (includes targeted exa ms where dose is matched to clinical indication); or iterative reconstruction. IV contrast: None DLP: 1469.99 mGy.cm COMPARISON: 09/19/2016 Severe osteopenia and degenerative changes within the lumbar spine. Prior vertebroplasty at T12, L1, L2 and L5. Severe vertebral planar fractures at T12 and L2. 5 mm retropulsion of the posterior superi or endplate of L2 and T12. As compared to the prior examination is been no progression of fractures. There are large anterior bridging osteophytes. T12-L1: Posterior bulging of the T12 vertebral body causing mild compression upon the ventral conus a nd cord. Mild central stenosis. L1-2: Mild disc bulging. L2-3: Posterior retropulsion of L2 causing significant deformity and compression upon the ventral the byron sac. Moderate central and lateral recess stenosis is similar to the prior study. No foraminal kimberly nosis. L3-4: Moderate annular disc bulging and osteophytic ridging. Marked ligamentum flavum hypertrophy. Mo derate central, bilateral subarticular and foraminal stenosis. L4-5: Diffuse annular disc bulging with moderate central and bilateral subarticular and lateral reces s stenosis. L5-S1: Mild annular disc bulging and osteophytic ridging. Mild disc contact on the LEFT S1 nerve root . There is extensive atherosclerosis within the abdominal aorta extending into the iliac arteries. 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 CT/CT lumbar spine wo con* [id number] IMPRESSION: 1. Severe osteopenia and degenerative changes in the lumbar spine. As compared to 2007 has only been minimal progression of degenerative change and stenoses. 2. Prior vertebroplasties at T12, L1, L2 and L5. Burst type fractures with ret ropulsion at T12 and L2 are similar to the prior study. 3. Moderate compression upon the thecal sac at the L2 level due to the burst f racture. There is moderate central and bilateral lateral recess stenosis with n o change. 4. Mild compression upon the conus and cord at T12-L1 with no change. 5. Moderate central, bilateral subarticular recess and foraminal stenosis at L 3-4. 6. Moderate central, bilateral subarticular recess and lateral recess stenosis at L4-5.
== END 2020-07-18 14:14 | disposition home or self-care (01) ==
LOC: RAD 14:16
PROVIDERS: PCP Family Medicine; Visit Provider Anesthesiology Pain Medicine
DX: M51.16 Intervertebral disc disorders with radiculopathy, lumbar region (principal); M85.88 Other specified disorders of bone density and structure, other site; M48.061 Spinal stenosis, lumbar region without neurogenic claudication
CPT/HCPCS: 72131

== ENCOUNTER → 2020-07-24 14:03 | Outpatient (BNVA) | payer OTHER, SELFPAY | PROVIDERS: PCP Family Medicine; Visit Provider Anesthesiology Pain Medicine | DX: M47.816 Spondylosis without myelopathy or radiculopathy, lumbar region (principal); M54.9 Dorsalgia, unspecified | CPT/HCPCS: 64493; 64494; 64495; J3490 ==

== ENCOUNTER → 2020-07-25 11:07 | Outpatient (BNVA) | payer OTHER, SELFPAY | PROVIDERS: PCP Family Medicine; Visit Provider Internal Medicine | DX: M32.9 Systemic lupus erythematosus, unspecified (principal); M51.16 Intervertebral disc disorders with radiculopathy, lumbar region; Z79.899 Other long term (current) drug therapy; M25.50 Pain in unspecified joint; M81.0 Age-related osteoporosis without current pathological fracture; J44.9 Chronic obstructive pulmonary disease, unspecified; Z99.81 Dependence on supplemental oxygen; Z87.891 Personal history of nicotine dependence | CPT/HCPCS: 99213; 99214 ==

== ENCOUNTER 2020-08-03 06:00 | Outpatient (RCR) | payer OTHER, SELFPAY | END 2020-08-07 23:59 | disposition home or self-care (01) | LOC: SPT 06:00 | PROVIDERS: PCP Family Medicine; Referring Provider Nurse Practitioner Family; Visit Provider Nurse Practitioner Family | DX: M54.5 Low back pain (principal) | CPT/HCPCS: 97162 ==

== ENCOUNTER 2020-08-08 06:00 | Outpatient (RCR) | payer OTHER, SELFPAY | END 2020-09-04 10:50 | disposition home or self-care (01) | LOC: SPT 06:00 | PROVIDERS: PCP Family Medicine; Referring Provider Nurse Practitioner Family; Visit Provider Nurse Practitioner Family | DX: M54.5 Low back pain (principal) | CPT/HCPCS: 97110; 97116; 97530 ==

== ENCOUNTER → 2020-08-24 13:52 | Outpatient (BNVA) | payer OTHER, SELFPAY | PROVIDERS: PCP Family Medicine; Visit Provider Anesthesiology Pain Medicine | DX: G89.29 Other chronic pain (principal); M47.816 Spondylosis without myelopathy or radiculopathy, lumbar region; R09.02 Hypoxemia; M54.9 Dorsalgia, unspecified | CPT/HCPCS: 64635; 64636; J1030 ==

== ENCOUNTER → 2020-09-06 12:38 | Outpatient (BNVA) | payer OTHER, SELFPAY | PROVIDERS: PCP Family Medicine; Visit Provider Anesthesiology Pain Medicine | DX: G89.29 Other chronic pain (principal); M47.816 Spondylosis without myelopathy or radiculopathy, lumbar region; Z87.891 Personal history of nicotine dependence | CPT/HCPCS: 64635; 64636; J1030 ==

== ENCOUNTER → 2020-10-02 10:49 | Outpatient (BNVA) | payer OTHER, SELFPAY | PROVIDERS: PCP Family Medicine; Visit Provider Anesthesiology Pain Medicine | DX: G89.29 Other chronic pain (principal); M47.812 Spondylosis without myelopathy or radiculopathy, cervical region; M51.16 Intervertebral disc disorders with radiculopathy, lumbar region; M47.816 Spondylosis without myelopathy or radiculopathy, lumbar region; Z96.641 Presence of right artificial hip joint | CPT/HCPCS: 99214 ==

== ENCOUNTER 2020-10-04 08:27 | Outpatient (CLI) | payer OTHER, SELFPAY ==
--- NOTE | 2020-10-04 08:38 | XR_ITS ---
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 FINDINGS: Previous vertebral plasty T3 and T10. The remaining thoracic vertebral bodies demonstrate no signific ant compression deformity. The intervertebral disc spaces in the thoracic spine are relatively well-maintained. XR/XR thoracic spine 3V* [id number] IMPRESSION: Previous vertebroplasty with no significant compression deformity identified at this time.
--- NOTE | 2020-10-04 08:38 | XR_ITS ---
WS: [id number] XR cervical spine 4-5V [id number] REASON FOR EXAM: M47.812 - Spondylosis without myelopathy or radiculopathy... FINDINGS: Overall decreased density of the bony structure of the cervical spine. The C3 and C4 vertebral bodies are fused. No other vertebral body abnormality is identified. The facet joints are normal alignment. There is narrowing of the C5-C6 disc space with anterior osteophytic spurring. The oblique views demonstrating the neural foramina on the left are well positioned. There is moderat e narrowing of the foramen at C3-C4. Minimal narrowing distally. The right neural foramina are not as well demonstrated but appear to demonstrate the same findings as on the left. Extensive calcification at the carotid bifurcations bilaterally XR/XR cervical spine 4-5V 54488 IMPRESSION: Fusion of C3-C4. The fusion has progressed to complete compared to 10/01/2010. Degenerative disc disease at C4-C5. This has occurred in the interval since 09/08. The carotid calcifications to this degree can be associated with significant ca rotid stenosis. A calcification has been progressive on the right since 10/02/19 11.
--- NOTE | 2020-10-04 08:39 | XR_ITS ---
WS: [id number] XR chest 2V* [id number] REASON FOR EXAM: HTN/CAD FINDINGS: Battery pack present over the left chest with transvenous left subclavian vein leads to the right atr ium and right ventricular apex. Mild tortuosity and calcification of the thoracic aorta without aneurysmal dilatation. Elevation of the left hemidiaphragm. No definite acute pulmonary parenchymal abnormality. There is blunting of both costophrenic angles. There is symmetric irregular pleural capping over both lung apices. This appears in part to be calcified. Previous vertebroplasty at T3, T10, T12, L1, and L2. XR/XR chest 2V* [id number] IMPRESSION: Compared to previous examination of 12/22/2019 would appear that the right pleu ral changes are chronic in nature. The left costophrenic angle is also blunted on the previous study and the left hemidiaphragm is elevated. Presumably this i s pleural scarring. No acute abnormality identified.
--- NOTE | 2020-10-04 08:39 | USCV_ITS ---
Clayton Swanson Age: 75 Gender: M : 1945 Exam Date: 10/04/2020 09:30 Ordering Phys: Justino Saldaña Technologist: Exam Location: [facility] [place] Indication: SOB CP BP: 130 / 72 HR: 85 Rhythm: Sinus Technical Quality: MEASUREMENTS (Male / Female) Normal Values DOPPLER AV Peak Velocity 100.0 cm/s LVOT Peak Velocity 79.0 cm/s MV Area PHT 5.0 cm squared Mitral E to A Ratio 0.9 MV E' Velocity 47.0 cm/s TR Peak Velocity 184.0 cm/s TR Peak Gradient 13.5 mmHg TV Peak E Velocity 73.0 cm/s Right Atrial Pressure 3.0 mmHg Pulmonary Artery Systolic Pressu 16.5 mmHg FINDINGS Left Ventricle Technically very difficult study. Only subcostal views were obtained. Possibly normal LV size with borderline normal ejection fraction. Segmental wall motion analysis difficult because of the poor ultrasonic window. The mid and apical segments appears to be somewhat hypokinetic. Right Ventricle Possibly of normal size. Pacemaker wire was noted Right Atrium Pacemaker wire was noted. Left Atrium Patient to be dilated Mitral Valve No gross abnormalities noted. The leaflets could not visualized well . Aortic Valve The aortic valve leaflets could not visualize well Tricuspid Valve No gross abnormalities noted.mild tricuspid valve regurgitation. Pulmonic Valve Pulmonic valve not well visualized. Pericardium No pericardial effusion. Aorta Normal aortic annulus size. CONCLUSIONS Possibly normal LV size with borderline low ejection fraction around 50% Segmental wall motion analysis difficult because of the poor ultrasonic window. Left atrium appears to be mildly dilated. Mild tricuspid valve regurgitation. Pacemaker wire is noted in the right atrium and right ventricle. Technically very difficult study because of the poor ultrasonic window Comparison with the previous study is difficult because of the difference in the technical quality. Dr Donell Mcdonald MD [facility] (Electronically Signed) Final Date: 04 October 2020 19:29 S
[2020-10-04 10:14] LABS: Basophils # 0.1 10^3/uL (0.0-0.1); Basophils % 0.8 %; Eosinophils # 0.1 10^3/uL (0.0-0.8); Eosinophils % 1.5 %; Hematocrit 34.2 % (42.0-52.0); Hemoglobin 10.8 g/dL (11.7-16.6); Lymphocytes # 1.2 10^3/uL (0.8-4.8); Lymphocytes % 18.9 %; Mean Corpuscular HGB Conc 31.6 g/dL (30.0-36.0); Mean Corpuscular Hemoglobin 32.8 pg (28.0-34.0); Mean Platelet Volume 10.1 fL (7.4-10.4); Monocytes # 0.7 10^3/uL (0.2-0.9); Monocytes % 9.9 %; Neutrophils # 4.44 10^3/uL (1.8-7.7); Neutrophils % 67.5 %; Nucleated Red Blood Cells % 0 %; Platelet Count 287 10^3/cmm (130-400); Red Blood Count 3.29 10^6/uL (4.1-5.3); White Blood Count 6.6 10^3/uL (4.0-10.0)
[2020-10-04 10:37] LABS: Alanine Aminotransferase 15 U/L (0-41); Albumin Level 3.4 g/dL (3.5-5.2); Alkaline Phosphatase 87 IU/L (40-130); Anion Gap 12.9 (5-19); Aspartate Amino Transferase 16 U/L (0-40); Blood Urea Nitrogen 16 mg/dL (8-23); C Reactive Protein 54.9 mg/L (0.0-4.9); Carbon Dioxide 29 mmol/L (22-29); Chloride 102 mmol/L (98-107); Globulin 3.6 g/dL (1.3-4.6); Glucose 91 mg/dL (65-115); Osmolality Calculated 291 mOsm/kg (285-295); Potassium 3.9 mmol/L (3.5-5.1); Sodium 140 mmol/L (136-145); Total Bilirubin 0.5 mg/dL (0.15-1.2)
[2020-10-04 10:48] LABS: Erythrocyte Sedimentation Rate 108 mm/hr (0-10)
== END 2020-10-04 08:28 | disposition home or self-care (01) ==
PROVIDERS: Internal Medicine; PCP Family Medicine; Visit Provider Chiropractor
DX: I25.10 Atherosclerotic heart disease of native coronary artery without angina pectoris (principal); I10 Essential (primary) hypertension; M47.812 Spondylosis without myelopathy or radiculopathy, cervical region; R06.02 Shortness of breath; R07.9 Chest pain, unspecified; Z95.0 Presence of cardiac pacemaker; I07.1 Rheumatic tricuspid insufficiency; M50.321 Other cervical disc degeneration at C4-C5 level; I65.23 Occlusion and stenosis of bilateral carotid arteries; M43.22 Fusion of spine, cervical region
CPT/HCPCS: 36415; 71046; 72050; 72072; 80053; 85025; 85651; 86140; 93306

== ENCOUNTER → 2020-10-31 11:04 | Outpatient (BNVA) | payer OTHER, SELFPAY | PROVIDERS: PCP Family Medicine; Visit Provider Internal Medicine | DX: D86.9 Sarcoidosis, unspecified (principal); M32.9 Systemic lupus erythematosus, unspecified; Z79.899 Other long term (current) drug therapy; R70.0 Elevated erythrocyte sedimentation rate; Z71.89 Other specified counseling | CPT/HCPCS: 36415; 80053; 81003; 82550; 84100; 84153; 84155; 84165; 84443; 85025; 85651; 86140 ==

== ENCOUNTER 2020-11-23 10:09 | Outpatient (CLI) | payer OTHER, SELFPAY ==
[2020-11-23 11:25] LABS: Free T4 Free Thyroxine 2.12 ng/dL (0.82-1.77); T3 Free 2.2 PG/ML (2.0-4.4)
== END 2020-11-23 10:10 | disposition home or self-care (01) ==
PROVIDERS: PCP Family Medicine; Visit Provider Chiropractor
DX: B54 Unspecified malaria (principal); E03.9 Hypothyroidism, unspecified
CPT/HCPCS: 36415; 84439; 84481; 87207

== ENCOUNTER 2021-01-01 08:26 | Outpatient (CLI) | payer OTHER, SELFPAY ==
--- NOTE | 2021-01-01 08:30 | IR_ITS ---
WS: [id number] LUMBAR MYELOGRAM HISTORY: M51.16 - Intervertebral disc disorders with radiculopathy... COMPARISON: 01/03/2012 FLUOROSCOPY TIME: 1.6 minutes. Procedure, risks and complications were explained to the patient. Risks including bleeding, infection , headaches, allergic reaction and seizures. Consent has been obtained. With the patient in prone position the skin over the lumbar region is cleansed with ChloraPrep and an esthetized with lidocaine. 22-gauge spinal needle is inserted into the thecal sac at the appropriate level determined by fluoroscopy. Omnipaque 300; 13 ml is injected slowly under fluoroscopy with no co mplications. Needle bevel is perpendicular to the longitudinal fibers of the dura. Stylet is reinsert ed prior to removal of the needle. Patient tolerated the procedure well. Patient will proceed to CT f or further evaluation. Numerous vertebroplasties are present within the lower thoracic and lumbar spines including T10, T12, L1, L2 and L5. Large bridging osteophytes along the margins of the vertebral bodies. Diffuse osteope meg. Mild S-shaped lumbar scoliosis. Retropulsion of L2 is present but better seen on the CT to follo w. Contrast layers posteriorly the thecal sac. Unable to mixed the contrast due to patient's immobili ty. IR/IR myelogram sp lumbar [id number] IMPRESSION: 1. Difficult lumbar myelogram due to patient's lack of mobility. 2. Multiple vertebroplasties from prior fractures including T10, T12, L1, L2 a nd L5. 3. Retropulsion of the superior endplate of L2 into the thecal sac is better v isualized on the CT to follow. 4. Thoracolumbar scoliosis and large marginal osteophytes bridging between the vertebral bodies. 5. Osteopenia.
--- NOTE | 2021-01-01 08:30 | CT_ITS ---
WS: [id number] CT MYELOGRAM LUMBAR SPINE HISTORY: M51.16 - Intervertebral disc disorders with radiculopathy... TECHNIQUE: Contiguous 2.5 mm axial imaging performed from T12 through the mid sacral level. Bone and soft tissue windows reviewed. Sagittal and coronal reformats are submitted and reviewed. DLP: 1732.[address] scans at [facility] use at least one of these dose optimization techniques: automated e xposure control; mA and/or kV adjustment per patient size (includes targeted exams where dose is matc hed to clinical indication); or iterative reconstruction. COMPARISON: 07/18/2020 Myelogram contrast is layering in the posterior thecal sac. Patient was unable to change position eas aleksandra therefore we were unable to mixed contrast throughout the thecal sac. Prior vertebroplasties at T10, T12, L1, L2, and L5. Severe vertebral planar fracture at T12 and L2. M ild anterior wedging at L1 and moderate anterior wedging at L5. T12 retropulsion by 4 mm encroaching upon the ventral thecal sac with no high-grade stenosis. L1-L2: Mild facet arthritis. Stenosis at the disc level. Retropulsion of the posterior superior endpl ate of L2 by 5 mm with encroachment upon the ventral thecal sac. Encroachment is causing a mild centr al and bilateral subarticular recess stenosis at the L2 level. L2-L3: Diffuse osteophytic ridging. Mild ligamentum flavum hypertrophy. No high-grade stenosis. L3-L4: Diffuse annular disc bulging and osteophytic ridging. RIGHT foraminal disc protrusion contacti ng but not displacing the RIGHT exiting L3 nerve root. Moderate RIGHT and mild LEFT foraminal stenosi s and moderate RIGHT subarticular recess stenosis. L4-L5: Diffuse annular disc bulging and osteophytic ridging. Mild ligamentum flavum disease and facet arthritis. Degenerative changes are causing a very mild central and bilateral foraminal narrowing. L5-S1: Mild disc bulging without significant stenosis. Moderate narrowing of the SI joints. Severe diffuse osteopenia. Soft tissue at S1-S2 on the RIGHT is probably a nerve root sleeve diverticulum. Small layering RIGHT pleural effusion. Moderate atherosclerosis aorta. CT/CT lumbar spine w con [id number] IMPRESSION: 1. Multiple vertebroplasties including T10, T12, L1, L2 and L5. 2. Severe vertebral planar fractures at T12 and L2. 3. Retropulsion posterior superior endplate of L2 with encroachment upon the v entral thecal sac causing mild central and bilateral subarticular recess stenos is. 4. RIGHT foraminal disc protrusion at L3-4 contacting but not displacing the R IGHT exiting L3 nerve root. 5. Moderate RIGHT foraminal and subarticular recess stenosis at L3-4 with mild LEFT foraminal stenosis. 6. Mild central and bilateral foraminal stenosis at L4-5.
--- NOTE | 2021-01-01 08:30 | XR_ITS ---
WS: [id number] Exam: XR pelvis 1-2V* [id number] Date/Time of Exam: 01/01/2021 9:23 AM Reason For Exam: M25.559 - Pain in unspecified hip Comparison 11/25/2019. No pelvic fracture noted. No sign of bone destruction. A right hip prosthesis is in satisfactory posi tion. Signs of vertebral plasty involving L5. Atherosclerotic plaquing of the iliac bifurcation. Mode rate amount stool in the rectum. XR/XR pelvis 1-2V* [id number] IMPRESSION: 1. No pelvic fracture noted. 2. Right hip prosthesis appearing to be intact based on images presented.
[2021-01-01 09:25] LABS: INR 1.04 (0.8-1.2)
[2021-01-01] MEDS: iohexol 300 mg/mL 50 mL Btl IV (10:34)
== END 2021-01-01 08:27 | disposition home or self-care (01) ==
LOC: RAD 08:28
PROVIDERS: PCP Family Medicine; Visit Provider Orthopaedic Surgery
DX: M51.16 Intervertebral disc disorders with radiculopathy, lumbar region (principal); M41.85 Other forms of scoliosis, thoracolumbar region; M85.88 Other specified disorders of bone density and structure, other site; M25.559 Pain in unspecified hip; Z96.641 Presence of right artificial hip joint
CPT/HCPCS: 62304; 72120; 72132; 72170; 85610

== ENCOUNTER 2021-01-10 09:35 | Outpatient (CLI) | payer OTHER, SELFPAY ==
--- NOTE | 2021-01-10 09:38 | CT_ITS ---
WS: [id number] CT HEAD NONCONTRAST HISTORY: CVA TECHNIQUE: Contiguous axial imaging performed through the brain in 2.5 mm imaging. Bone and soft tiss ue windows. All CT scans at [facility] use at least one of these dose optimization techniques: automated exposure control; mA and/or kV adjustment per patient size (includes targeted exams where dose is matched to clinical indication); or iterative reconstruction. DLP: 992.04 mGycm COMPARISON: 05/15/2017 No acute intracranial hemorrhage, midline shift or mass effect. Mild symmetric atrophy. Extensive chronic microvascular ischemic changes throughout the white matter. Small lacunar infarcts in the basal ganglia bilaterally. Largest lacunar infarct is stable in the ex ternal capsule on the LEFT. Small bilateral thalamic lacunae. Ventricles: Ventricles and extra-axial spaces are prominent on the basis of central and peripheral a trophy. Paranasal sinuses: As visualized are clear. Mastoid air cells: Well pneumatized. Calvarium and scalp: Skull is intact with no soft tissue edema or swelling. Moderate atherosclerotic plaque within the intracranial carotid arteries. CT/CT head wo con* [id number] IMPRESSION: 1. No acute hemorrhage or infarct identified. 2. Advanced chronic microvascular ischemic disease with multiple bilateral lac unar infarcts in the basal ganglia and thalami. No acute infarct identified. 3. Ventriculomegaly on the basis of atrophy.
== END 2021-01-10 09:36 | disposition home or self-care (01) ==
PROVIDERS: PCP Family Medicine; Visit Provider Family Medicine
DX: I63.9 Cerebral infarction, unspecified (principal); I67.82 Cerebral ischemia; G93.89 Other specified disorders of brain; G31.9 Degenerative disease of nervous system, unspecified
CPT/HCPCS: 70450